=== PATIENT | female | born 1945 | race Caucasian/White ===

== ENCOUNTER 2019-09-25 06:00 | Outpatient (RCR) | payer MEDICARE, SELFPAY | END 2019-10-04 23:59 | disposition home or self-care (01) | LOC: GPT 06:00 | PROVIDERS: PCP Nurse Practitioner Family; Referring Provider Nurse Practitioner Family; Visit Provider Nurse Practitioner Family | DX: G89.29 Other chronic pain (principal); M54.42 Lumbago with sciatica, left side | CPT/HCPCS: 97032; 97110; 97161; 97530 ==

== ENCOUNTER 2019-10-05 06:00 | Outpatient (RCR) | payer MEDICARE, SELFPAY | END 2019-11-04 23:59 | disposition home or self-care (01) | LOC: GPT 06:00 | PROVIDERS: PCP Nurse Practitioner Family; Referring Provider Nurse Practitioner Family; Visit Provider Nurse Practitioner Family | DX: G89.29 Other chronic pain (principal); M54.42 Lumbago with sciatica, left side | CPT/HCPCS: 97110; 97112; 97116; 97164; 97530 ==

== ENCOUNTER 2019-11-05 06:00 | Outpatient (RCR) | payer MEDICARE, SELFPAY | END 2019-12-04 23:59 | disposition home or self-care (01) | LOC: GPT 06:00 | PROVIDERS: PCP Nurse Practitioner Family; Referring Provider Nurse Practitioner Family; Visit Provider Nurse Practitioner Family | DX: M54.42 Lumbago with sciatica, left side (principal); G89.29 Other chronic pain; R26.89 Other abnormalities of gait and mobility | CPT/HCPCS: 97110; 97112; 97116; 97530 ==

== ENCOUNTER 2020-05-27 20:27 | Observation (INO) | payer MEDICARE, SELFPAY ==
[2020-05-27 21:01] VITALS: BP 167/75; PULSE 97; RESP 18; TEMP 36.9; O2SAT 96; BMI 34.3
--- NOTE | 2020-05-27 22:38 | W.ED.WEAKNES ---
HPI - Weakness General: Chief complaint: Weakness Stated complaint: WEAK X 2 DAYS Time Seen by Provider: 05/27/20 22:26 Source: patient (poor historian) Mode of arrival: wheelchair Limitations: physical limitation (weakness) History of Present Illness: HPI Narrative: 74-year-old female patient presents to the emergency department with progressive weakness. She was seen at [facility] earlier this evening with diagnosis of urinary tract infection, was discharged home. Family immediately brought her to the emergency room but she was not able to get out of the car secondary to weakness. She has experienced weakness for 2 days, received second dose Covid vaccine today despite complaints of weakness, administered as she did not have a fever. She reports weakness has progressed since COVID vaccine, reports similar reaction with 1st dose of the vaccine but not this severe. She reports history of diabetes with CBG readings in the 300s which is elevated for her. She denies urinary symptoms. She reports shortness of breath but denies cough or congestion. She reports normally is ambulatory at home with assistance of a walker. She denies chest pain, abdominal pain, nausea vomiting. She reports few episodes of diarrhea. She denies hematochezia. Home health aide that cares for her did contact the ED with concern of her weakness. Medical records have been requested from [facility]. Complaint: generalized weakness, lack of energy and difficulty walking Onset (ago): day(s) (2) Duration: constant and progressively worsening Location: generalized Relieving factors: none Exacerbating factors: none Associated symptoms: Denies chest pain, chills, diaphoresis, dysuria, easy bruising, fever(s), headache(s), nausea or vomiting Review of Systems General: Reports: 10 or more systems reviewed and unremarkable except in HPI and below Const: Reports: fatigue and malaise; Denies: fever(s), chills, change in appetite, diaphoresis or change in sleep pattern Eyes: Denies: blurry vision or eye redness ENMT: Denies: throat pain, dental pain, disequilibrium, nasal discharge or nasal congestion Card: Reports: swelling of feet/ankles (chronic) and dyspnea on exertion (x 2 years but worse); Denies: chest pain, palpitations, irregular heart rhythm, lightheadedness, orthopnea or leg pain with exertion Resp: Reports: non-productive cough (x 2 years, not changed) and chest congestion (x 2 years, not changed); Denies: dyspnea, productive cough or wheezing GI: Reports: diarrhea; Denies: abdominal pain, nausea, vomiting, heartburn, GI cramping, pain on defecation or hematochezia : Denies: difficulty voiding or dysuria Musc: Reports: muscle weakness; Denies: neck pain, back pain, joint pain or joint stiffness Skin/Breast: Denies: rash, pruritus, erythema or changes in skin color Neuro: Reports: difficulty walking; Denies: headache(s), weakness in extremities, sensory changes, frequent falls, vertigo or behavioral changes Psych: Denies: anxiety or depression Farhan/Lymph: Denies: easy bruising PFSH ED PFSH: Medical History (Updated 05/28/20 @ 02:38 by Xander Ernst) COPD (chronic obstructive pulmonary disease) Diabetes Surgical History (Updated 05/28/20 @ 01:53 by EDGAR Ballesteros) H/O: hysterectomy History of appendectomy History of carpal tunnel release History of tonsillectomy Total knee replacement status Family History (Updated 05/28/20 @ 01:54 by EDGAR Ballesteros) Father Diabetes Other CAD (coronary artery disease) Social History (Updated 05/28/20 @ 01:54 by EDGAR Ballesteros) Alcohol intake: never Substance/Drug Use: never Lives independently: Yes Household members: spouse Marital status: Physical Exam Const: COMMON NORMALS: no acute distress, patient oriented x3, alert and well nourished EXAM LIMITATIONS: physical limitations (weakness present); no altered mental status and no behavioral limitations GENERAL APPEARANCE: cooperative, comfortable, frail appearing and well hydrated; not anxious and not ill appearing NUTRITIONAL APPEARANCE: obese ORIENTATION/CONSCIOUSNESS: Yes awake, Yes oriented to person, Yes oriented to place and Yes oriented to time; not confused and not patient obtunded HENMT: COMMON NORMALS: normocephalic, atraumatic, external ears normal, Normal external nose present and moist oral mucous membranes HEAD & SCALP: normal to inspection, normocephalic and atraumatic NOSE: Normal external nose present EXTERNAL EAR: Yes external ears normal Eye: COMMON NORMALS: Equal, round and reactive pupils present and EOMs intact bilaterally GENERAL EYE: appearance normal, both eyes and all related structures PUPIL: Yes Equal, round and reactive pupils present Neck/C-Spine: COMMON NORMALS: full ROM and no lymphadenopathy GENERAL: Yes normal visual inspection and Yes trachea midline CERVICAL SPINE: Yes cervical ROM normal Lymph: LYMPHATIC: no lymphadenopathy noted Chest: COMMONS NORMALS: normal inspection of the chest and normal palpation of entire chest wall Resp: COMMON NORMALS: normal respiratory effort, No retractions and clear to auscultation bilaterally EFFORT & INSPECTION: Yes able to speak in complete sentences, Yes labored (with exertion), No Actively coughing and No audible wheezes AUSCULTATION: clear to auscultation bilaterally and diminished lung sounds bilateral in the lower lung miranda Cardio: COMMON NORMALS: regular rate, regular rhythm, S1 normal heart sound present, S2 normal heart sound present and Peripheral pulses 2+ throughout RATE: regular rate RHYTHM: regular rhythm HEART SOUNDS: S1 normal heart sound present and S2 normal heart sound present PERIPHERAL PULSES: Peripheral pulses 2+ throughout GI: COMMON NORMALS: Normal to inspection, nondistended, normoactive bowel sounds present, Soft to palpation and non-tender INSPECTION: Yes normal to inspection, No abdominal wall ecchymosis, No Abdominal wall edema, No abdominal distension and Yes central obesity PALPATION: Yes Soft to palpation : COMMON NORMALS: Yes no CVA tenderness BLADDER/KIDNEY EXAM: Yes no CVA tenderness Back/Pelvis: COMMON NORMALS: no CVA tenderness and thoracic and lumbar spine normal to inspection Extremity: COMMON NORMALS: normal to inspection, capillary refill normal, no clubbing, cyanosis or edema and no calf tenderness GENERAL: Yes edema (BLE 2 +) Neuro: COMMON NORMALS: patient oriented x3 and no focal motor deficits SENSORIUM/ORIENTATION: Yes alert, Yes oriented to person, Yes oriented to place and Yes oriented to time SPEECH: speech normal MOTOR EXAM: Abnormal motor strength present (3/5 x 4 extremities) Right pupil size (mm): 3 Left pupil size (mm): 3 Psych: COMMON NORMALS: mental status grossly normal, Normal thought process present and cooperative APPEARANCE: Yes grossly normal ATTITUDE: Yes calm ACTIVITY/MOTOR BEHAVIOR: Yes appropriate eye contact THOUGHT PROCESS: Normal thought process present THOUGHT CONTENT: Yes Normal thought content present Skin: COMMON NORMALS: no wounds, turgor normal, no petechiae and no mottling GENERAL SKIN EXAM: elasticity normal and turgor normal RASHES: rashes noted (rt deltoid with 7 cm x 3 cm area of induration and tenderness) OTHER: COVID vaccine site Course ED course: [facility] records received, findings as follows; patient was diagnosed with urinary tract infection discharged with prescription of Omnicef. Patient was administered Rocephin in the ED prior to discharge. Sodium 128/chloride 95; glucose serum 201, remaining serology findings without abnormalities. Chest x-ray without acute process. Consultations: Consultation #1: Dr Turcios, hospitalist, discussed history of present illness, clinical findings along with findings/medical records from [facility]. Serology results discussed. Agrees for admission as patient continues to experience weakness. Time: 02:30 Vital Signs: Vital signs: Vital Signs Temperature 98.4 F 05/27/20 21:01 Pulse Rate 92 05/28/20 01:52 Respiratory Rate 19 H 05/28/20 01:52 Blood Pressure 158/79 05/28/20 01:52 Pulse Oximetry 96 05/28/20 01:52 MDM - Weakness MDM Narrative: Medical decision making narrative: 74-year-old female patient presents to the emergency department with continued weakness x24 hours. She reports weakness progressed since receiving second dose of Covid vaccine yesterday. She reports previous symptoms with first dose of Covid vaccine. CBC without acute abnormality/leukocytosis, patient remains with hyponatremia/hypochloremia, lactate 1.3, urinalysis with positive findings for UTI. First dose of Rocephin administered here in the ED. Initial troponin slightly elevated, 14, 2-hour troponin pending. Patient able to move all extremities x4, weakness noted, CT scan of the brain without IV contrast without acute abnormality. Hospitalist, Dr. Turcios, evaluated the patient in the ED. CPK added to serology. Lab Data: Labs: Lab Results 05/27/20 05/27/20 05/28/20 Range/Units 22:40 23:09 00:32 WBC 5.9 (4.0-10.0) 10^3/ uL RBC 4.29 (4.1-5.3) 10^6/u L Hgb 12.7 (11.5-15.3) g/dL Hct 38.6 (37.0-47.0) % MCV 90.0 (81-99) fL MCH 29.6 (28.0-34.0) pg MCHC 32.9 (30.0-36.0) g/dL RDW 14.4 (12.1-15.1) % Plt Count 224 (130-400) 10^3/c mm MPV 8.6 (7.4-10.4) fL Neut % (Auto) 65.3 % Lymph % (Auto) 21.8 % [place] % (Auto) 9.4 % Eos % (Auto) 2.2 % Baso % (Auto) 0.8 % Neut # (Auto) 3.87 (1.8-7.7) 10^3/u L Lymph # (Auto) 1.3 (0.8-4.8) 10^3/u L [place] # (Auto) 0.6 (0.2-0.9) 10^3/u L Eos # (Auto) 0.1 (0.0-0.8) 10^3/u L Baso # (Auto) 0.1 (0.0-0.1) 10^3/u L Nucleated RBC % (a uto) 0 % Nucleated RBCs # 0.0 /100WBC Sodium 126 L (136-145) mmol/L Potassium 4.1 (3.5-5.1) mmol/L Chloride 93 L (98-107) mmol/L Carbon Dioxide 23 (22-29) mmol/L Anion Gap 14.1 (5-19) BUN 11 (8-23) mg/dL Creatinine 0.5 (0.5-0.9) mg/dL GFR Calculation Not Reportable Glucose 203 H (65-115) mg/dL Calculated Osmolal ity 267 L (285-295) mOsm/k g Lactate 1.3 (0.5-2.2) mmol/L Calcium 8.6 (8.5-10.5) mg/dL Total Bilirubin 0.3 (0.15-1.2) mg/dL AST 15 (0-32) U/L ALT 14 (0-33) U/L Alkaline Phosphata se 56 (35-105) IU/L Troponin T Baselin e (0-10) ng/L Total Protein 6.5 L (6.6-8.7) g/dL Albumin 3.8 (3.5-5.2) g/dL Globulin 2.7 (1.3-4.6) g/dL Urine Color (Yellow) Urine Appearance (CLEAR) Urine pH (5-7) Ur Specific Gravit y (1.005-1.030) Urine Protein (Negative) Urine Glucose (UA) (Normal) Urine Ketones (Negative) Urine Blood (Negative) Urine Nitrate (Negative) Urine Bilirubin (Negative) Urine Urobilinogen (Negative) mg/dL Ur Leukocyte Johanna ase (Negative) Urine RBC (0-2) /hpf Urine WBC (0-5) /hpf Ur Squamous Epith Cells (0-5) /hpf Amorphous Sediment Urine Bacteria (NONE) /hpf 05/28/20 05/28/20 Range/Units 00:32 00:37 WBC (4.0-10.0) 10^3/ uL RBC (4.1-5.3) 10^6/u L Hgb (11.5-15.3) g/dL Hct (37.0-47.0) % MCV (81-99) fL MCH (28.0-34.0) pg MCHC (30.0-36.0) g/dL RDW (12.1-15.1) % Plt Count (130-400) 10^3/c mm MPV (7.4-10.4) fL Neut % (Auto) % Lymph % (Auto) % [place] % (Auto) % Eos % (Auto) % Baso % (Auto) % Neut # (Auto) (1.8-7.7) 10^3/u L Lymph # (Auto) (0.8-4.8) 10^3/u L [place] # (Auto) (0.2-0.9) 10^3/u L Eos # (Auto) (0.0-0.8) 10^3/u L Baso # (Auto) (0.0-0.1) 10^3/u L Nucleated RBC % (a uto) % Nucleated RBCs # /100WBC Sodium (136-145) mmol/L Potassium (3.5-5.1) mmol/L Chloride (98-107) mmol/L Carbon Dioxide (22-29) mmol/L Anion Gap (5-19) BUN (8-23) mg/dL Creatinine (0.5-0.9) mg/dL GFR Calculation Glucose (65-115) mg/dL Calculated Osmolal ity (285-295) mOsm/k g Lactate (0.5-2.2) mmol/L Calcium (8.5-10.5) mg/dL Total Bilirubin (0.15-1.2) mg/dL AST (0-32) U/L ALT (0-33) U/L Alkaline Phosphata se (35-105) IU/L Troponin T Baselin e 14 H (0-10) ng/L Total Protein (6.6-8.7) g/dL Albumin (3.5-5.2) g/dL Globulin (1.3-4.6) g/dL Urine Color Yellow (Yellow) Urine Appearance Clear (CLEAR) Urine pH 6.5 (5-7) Ur Specific Gravit y 1.015 (1.005-1.030) Urine Protein Neg (Negative) Urine Glucose (UA) 4+ H (Normal) Urine Ketones Negative (Negative) Urine Blood 2+ H (Negative) Urine Nitrate Negative (Negative) Urine Bilirubin Neg (Negative) Urine Urobilinogen Norm (Negative) mg/dL Ur Leukocyte Johanna ase 1+ H (Negative) Urine RBC 5-10 H (0-2) /hpf Urine WBC 40-55 H (0-5) /hpf Ur Squamous Epith Cells 5-10 H (0-5) /hpf Amorphous Sediment Not Reportable Urine Bacteria Trace (NONE) /hpf Imaging Data^: CT Head: Radiologist's impression: [place] [address] CT Scan Report Signed Patient: Isamar Keyes Unit #: [id number] : 1945 Age/Sex: 74 / F ADM Date: 05/27/20 Loc: ER Room/Bed: Attending Dr: Ordering Provider/Ordering MD: Omaira Carvajal Date of Service: 05/28/20 Procedure(s): CT head wo con* [id number] Accession Number(s): [id number] Report Number: [id number] PROCEDURE INFORMATION: Exam: CT Head Without Contrast Exam date and time: 05/28/2020 1:23 AM Age: 74 years old Clinical indication: Weakness, extremity; Patient HX: General weakness with inability to ambulate. TECHNIQUE: Imaging protocol: Computed tomography of the head without contrast. Radiation optimization: All CT scans at this facility use at least one of these dose optimization techniques: automated exposure control; mA and/or kV adjustment per patient size (includes targeted exams where dose is matched to clinical indication); or iterative reconstruction. COMPARISON: No relevant prior studies available. RADIATION DOSE METRICS: Total DLP (mGy-cm): 992.35 FINDINGS: Brain: Brain atrophy with hypodensities in the periventricular/deep white matter that suggest chronic microvascular ischemia. Cerebral ventricles: No hydrocephalus Bones/joints: No acute fracture. Paranasal sinuses: Trace chronic paranasal sinus disease. Mastoid air cells: No significant mastoid effusion. Vasculature: Vascular calcifications. Soft tissues: Unremarkable. CT/CT head wo con* [id number] IMPRESSION: No acute intracranial abnormality. Radiation Dose CTDIVOL = (mGy): DLP = 992.35 (mGy-cm) Dictated By: Denny Don MD Signed By: Denny Don MD Discharge Plan Discharge Patient Disposition: Admitted As Inpatient Clinical Impression: Weakness, Acute UTI Condition: Stable Coding Level of Care Code ED Skein Yarn Dyer Helper for Chg Fwd Exam Comprehensive
[2020-05-27 22:48] LABS: Basophils # 0.1 10^3/uL (0.0-0.1); Basophils % 0.8 %; Eosinophils # 0.1 10^3/uL (0.0-0.8); Eosinophils % 2.2 %; Hematocrit 38.6 % (37.0-47.0); Hemoglobin 12.7 g/dL (11.5-15.3); Lymphocytes # 1.3 10^3/uL (0.8-4.8); Lymphocytes % 21.8 %; Mean Corpuscular HGB Conc 32.9 g/dL (30.0-36.0); Mean Corpuscular Hemoglobin 29.6 pg (28.0-34.0); Mean Platelet Volume 8.6 fL (7.4-10.4); Monocytes # 0.6 10^3/uL (0.2-0.9); Monocytes % 9.4 %; Neutrophils # 3.87 10^3/uL (1.8-7.7); Neutrophils % 65.3 %; Nucleated Red Blood Cells % 0 %; Platelet Count 224 10^3/cmm (130-400); Red Blood Count 4.29 10^6/uL (4.1-5.3); Red Cell Distribution Width 14.4 % (12.1-15.1); White Blood Count 5.9 10^3/uL (4.0-10.0)
[2020-05-27 23:22] VITALS: BP 107/82; PULSE 87; RESP 19; O2SAT 95
--- NOTE | 2020-05-27 23:32 | PC.NURSE ---
Patient wet herself, got her out of soiled clothes into patient gown and remade bed with fresh linens.
[2020-05-27 23:40] LABS: Alanine Aminotransferase 14 U/L (0-33); Albumin Level 3.8 g/dL (3.5-5.2); Alkaline Phosphatase 56 IU/L (35-105); Anion Gap 14.1 (5-19); Aspartate Amino Transferase 15 U/L (0-32); Blood Urea Nitrogen 11 mg/dL (8-23); Calcium 8.6 mg/dL (8.5-10.5); Carbon Dioxide 23 mmol/L (22-29); Chloride 93 mmol/L (98-107); Globulin 2.7 g/dL (1.3-4.6); Glucose 203 mg/dL (65-115); Osmolality Calculated 267 mOsm/kg (285-295); Potassium 4.1 mmol/L (3.5-5.1); Sodium 126 mmol/L (136-145); Total Bilirubin 0.3 mg/dL (0.15-1.2); Total Protein 6.5 g/dL (6.6-8.7)
[2020-05-28] VITALS (11 sets, daily range): BP systolic 118–158; BP diastolic 62–79; PULSE 79–97; RESP 16–19; TEMP 36.4–37.4; O2SAT 94–96
--- NOTE | 2020-05-28 00:13 | XR_ITS ---
WS: [id number] Exam: XR chest 1V portable [id number] Date/Time of Exam: 05/28/2020 12:15 AM Reason For Exam: cough /SOB No priors. The lungs are clear and fully expanded. Unremarkable cardiomediastinal structures and regional bony e lements. Atherosclerotic plaquing of the thoracic aorta. XR/XR chest 1V portable [id number] IMPRESSION: 1. No acute cardiopulmonary finding.
[2020-05-28 00:50] LABS: Blood Urine 2+ (Negative); Glucose Urine UA 4+ (Normal); Ketones Urine Negative (Negative); Protein Urine Neg (Negative); Specific Gravity, Urine 1.015 (1.005-1.030); Urine Appearance Clear (CLEAR); Urine Color Yellow (Yellow); pH Urine 6.5 (5-7)
[2020-05-28 00:51] LABS: Add Urine Culture? Yes; Add Urine Microscopic? YES; Bacteria Urine TRACE /hpf; Bilirubin Urine Neg (Negative); Leukocyte Esterase Urine 1+ (Negative); Nitrate Urine Negative (Negative); Urobilinogen Urine Norm (Negative); WBC Urine 40-55 /hpf (0-5)
[2020-05-28 00:59] LABS: Lactate (Lactic Acid level) 1.3 mmol/L (0.5-2.2)
[2020-05-28 01:02] LABS: Troponin(5th) Baseline 14 ng/L (0-10)
--- NOTE | 2020-05-28 01:19 | CTR_ITS ---
PROCEDURE INFORMATION: Exam: CT Head Without Contrast Exam date and time: 05/28/2020 1:23 AM Age: 74 years old Clinical indication: Weakness, extremity; Patient HX: General weakness with inability to ambulate. TECHNIQUE: Imaging protocol: Computed tomography of the head without contrast. Radiation optimization: All CT scans at this facility use at least one of these dose optimization techniques: automated exposure control; mA and/or kV adjustment per patient size (includes targeted exams where dose is matched to clinical indication); or iterative reconstruction. COMPARISON: No relevant prior studies available. RADIATION DOSE METRICS: Total DLP (mGy-cm): 992.35 FINDINGS: Brain: Brain atrophy with hypodensities in the periventricular/deep white matter that suggest chronic microvascular ischemia. Cerebral ventricles: No hydrocephalus Bones/joints: No acute fracture. Paranasal sinuses: Trace chronic paranasal sinus disease. Mastoid air cells: No significant mastoid effusion. Vasculature: Vascular calcifications. Soft tissues: Unremarkable. CT/CT head wo con* [id number] IMPRESSION: No acute intracranial abnormality. Radiation Dose CTDIVOL = (mGy): DLP = 992.35 (mGy-cm)
[2020-05-28] MEDS: albuterol 8 gm MDI 2 PUFF INHALATION (01:45)
[2020-05-28] MEDS: cefTRIAXone 1,000 MG in sodium chloride 0.9% (plus) 50 ML 100 MG IV (01:47)
--- NOTE | 2020-05-28 02:15 | ECG_ITS ---
[facility] Test Date: 2020-05-28 Pat Name: Isamar Keyes Department: Room: 279 Gender: Female Supervisor Parking Lot: : 1945 Requested By: Omaira Mustafa Order Number: [id number] Elvia MD: Monique Vazquez M.D. Measurements Intervals [place] Rate: 95 P: 28 TX: 158 QRS: -31 QRSD: 92 T: 13 QT: 330 QTc: 416 Interpretive Statements SINUS RHYTHM LEFT AXIS DEVIATION [QRS AXIS < -30] No previous ECG available for comparison Electronically Signed On 05-28-2020 20:42:38 CDT by Monique Vazquez M.D. [email or web address] bethesda north hospitalVoltea/store/Ov/[id number]
[2020-05-28 03:19] LABS: Creatine Phosphokinase 33 U/L (26-192)
--- NOTE | 2020-05-28 03:38 | PM.HP ---
Providers/Chief Complaint Admitting Physician: Donato Turcios Primary Care Provider: RERE Robles Chief Complaint: WEAK X 2 DAYS History of Present Illness 74 year old female with past medical history of hypertension, dyslipidemia, diabetes mellitus, neuropathy, chronic obstructive pulmonary disease, who is presenting to the ER with generalized weakness. Patient states her symptoms progressively worsening after receiving the COVID-19 vaccine on 05/26. Normally uses a walker at home for mobility however today has been feeling to weak to move. Initially presented to [facility] ER for work up earlier yesterday during which time she was suspected to have a UTI. She was given omnicef in addition to prednisone and discharge. at bedside said he is not able to take care of her and so he brought her to [facility] ER for admission and possible d/c to rehab facility. Of note patient was admitted for 3 days with similar issues after receiving the first covid-19 vaccine. Per patient she had still felt weak at discharge during that time however was not evaluated for SNF placement. Denied any recent fever, chills, nausea, or vomiting. Denied chest pain or shortness of breath. Also denied any unilateral neurological deficits, lightheadedness or dizziness. No LOC. Upon arrival to ER today her laboratory work up showed a WBC of 5.9, hemoglobin of 12.7, hematocrit of 38.6 and a platelet count of 224. Sodium of 126, potassium of 4.1, chloride of 93, bicarb of 23, BUN of 11 and a creatinine of 0.5. Lactic acid of 1.3 UA showed 1+ leukocyte esterase, 40-55 WBC and trace bacteria. Imaging studies included a ct head w/o contrast with was negative. Review of Systems General: Reports: 10 or more systems reviewed and unremarkable except in HPI and below Medications/Allergies Allergies Allergy/AdvReac Type Severity Reaction Status Date / Time No Known Allergies Allergy Verified 05/27/20 21:07 PFSH Acute PFSH: Medical History (Updated 05/28/20 @ 03:58 by Donato Turcios MD) COPD (chronic obstructive pulmonary disease) Diabetes Surgical History (Updated 05/28/20 @ 01:53 by EDGAR Ballesteros) H/O: hysterectomy History of appendectomy History of carpal tunnel release History of tonsillectomy Total knee replacement status Family History (Updated 05/28/20 @ 01:54 by EDGAR Ballesteros) Father Diabetes Other CAD (coronary artery disease) Social History (Updated 05/28/20 @ 01:54 by EDGAR Ballesteros) Alcohol intake: never Substance/Drug Use: never Lives independently: Yes Household members: spouse Marital status: Vitals/I&O/Wt Last Vital Signs Temp 98.4 F 05/27/20 21:01 Pulse 92 05/28/20 01:52 Resp 19 H 05/28/20 01:52 BP 158/79 05/28/20 01:52 Pulse Ox 96 05/28/20 01:52 Weight last 48 hrs Weight 90.718 kg Physical Exam Narrative: EXAM NARRATIVE: General : alert awake and oriented x3, NAD HEENT: Grossly unremarkable Chest : Non-labored respiration CVS: NSR ABD: Soft NT.ND Ext : Trace b/l edema Neuro: weak however moving all ext Data : 05/27/20 22:40 05/27/20 23:09 A&P Assessment and plan (1) Acute UTI: Status: Acute (2) Weakness: Status: Acute (3) Hyponatremia: Status: Acute Generalized weakness due to suspected UTI - UA + leukocyte esterase, 40-55 WBC, trace bacteria - S/p Rocephin 1g IV x 1 in ER - Will continue q24hr - Follow up on urine culture - Follow up on blood culture x2 - Will consult PT/OT - Fall precautions - Will also check TSH in am Hyponatremia - Euvolemic - will obtain urine na/creatinine/chloride - NS at 50cchr after - Repeat BMP in am Diabetes mellitus - Sliding scale insulin - Qachs checks - Diabetic diet COPD w/o exacerbation - No respiratory distress or hypoxia on arrival - Stable continue home regimen Hypertension - Verify home meds Dyslipidemia - Verify home meds DVT pox - SCDS - Lovenox 40 mg SQ daily Attestations Medical Necessity Statement*: Anticipate less than 2 midnight stay in hospital for eval and treatment of UTI/generalized wekaness. Time Spent in Patient Care: Greater than 35 minutes (>than 50% of time spent in counselling and/or direct pt care on unit). Coding Level of Care Code Acute Director Of Corporate Responsibility for Donna Tuttle Diagnoses Acute UTI N39.0 Weakness R53.1 Hyponatremia E87.1
[2020-05-28 04:12] LABS: NT Pro B Type Natriuretic Pept 749 pg/mL (0-125)
[2020-05-28] MEDS: enoxaparin 40 mg/0.4 mL Syringe SUBCUT (04:12)
[2020-05-28] MEDS: sodium chloride 0.9% 1,000 ML 50 ML IV (04:13)
[2020-05-28 04:43] LABS: Troponin 5 2HR 16.59 ng/L (0-10)
[2020-05-28 04:46] LABS: Troponin 5 2HR Delta 2.59 ABS# (0-10)
[2020-05-28 07:51] LABS: Troponin 5 6HR 15.36 ng/L (0-10); Troponin 5 6HR Delta 1.36 ng/L (0-12)
--- NOTE | 2020-05-28 08:47 | USCV_ITS ---
Isamar Keyes Age: 74 Gender: F : 1945 Exam Date: 05/28/2020 11:01 Ordering Phys: Damien Cohen MD Technologist: Jaciel Ray [place]am [place] [facility] [place]ication: CHF BP: 134 / 73 HR: 89 Rhythm: Sinus Technical Quality: Adequate MEASUREMENTS (Male / Female) Normal Values 2D ECHO LV Diastolic Diameter PLAX 3.5 cm 4.2 - 5.9 / 3.9 - 5.3 cm LV Systolic Diameter PLAX 2.0 cm IVS Diastolic Thickness 1.3 cm 0.6 - 1.0 / 0.6 - 0.9 cm IVS Systolic Thickness 1.3 cm LVPW Diastolic Thickness 1.1 cm 0.6 - 1.0 / 0.6 - 0.9 cm LVPW Systolic Thickness 1.2 cm LVOT Diameter 2.0 cm LV Ejection Fraction 2D Teich 68.3 % LV Ejection Fraction MOD 2C 58.6 % LV Ejection Fraction 2C AL 58.5 % LA Diameter 3.3 cm LA Width 3.3 cm LA Height 3.6 cm RA Width 3.2 cm RA Height 4.0 cm M-MODE LV Diastolic Diameter MM 4.5 cm 4.2 - 5.9 / 3.9 - 5.3 cm LV Systolic Diameter MM 2.8 cm LV Ejection Fraction MM Teich 68.4 % IVS Diastolic Thickness MM 0.9 cm 0.6 - 1.0 / 0.6 - 0.9 cm IVS Systolic Thickness MM 1.2 cm LVPW Diastolic Thickness MM 1.1 cm 0.6 - 1.0 / 0.6 - 0.9 cm LVPW Systolic Thickness MM 1.8 cm RV Diastolic Diameter MM 1.7 cm Aortic Annulus Diameter 3.2 cm LA Ao Ratio MM 1.1 MV E Point Septal Separation 0.6 cm DOPPLER AV Peak Velocity 124.0 cm/s LVOT Peak Velocity 94.0 cm/s AV Area Cont Eq vti 2.4 cm squared AV Area Cont Eq pk 2.4 cm squared MV Area PHT 5.0 cm squared Mitral E to A Ratio 1.0 MV E' Velocity 55.0 cm/s Mitral E to MV E' Ratio 9.7 Mitral E to LV E' Lateral Ratio 10.5 Mitral E to LV E' Septal Ratio 9.0 TR Peak Velocity 210.0 cm/s TR Peak Gradient 17.6 mmHg TV Peak E Velocity 76.0 cm/s Right Atrial Pressure 3.0 mmHg Pulmonary Artery Systolic Pressu 20.6 mmHg FINDINGS Left Ventricle Normal left ventricular size, systolic function and wall thickness, with no regional wall motion abnormalities. Left ventricular ejection fraction is estimated at 65 %. Normal diastolic function. Right Ventricle Normal right ventricular size and systolic function. Right ventricular systolic pressure 20.6 mmHg. Right Atrium Normal right atrial size. Left Atrium Normal left atrial size. Mitral Valve Mildly thickened mitral valve. Mild mitral annular calcification. No mitral valve stenosis. Trace mitral valve regurgitation. Aortic Valve Aortic valve not well visualized. No aortic valve stenosis. No aortic valve regurgitation. Tricuspid Valve Tricuspid valve not well visualized. Pulmonic Valve Pulmonic valve not well visualized. Pericardium No pericardial effusion. Aorta Normal sized aortic root. CONCLUSIONS 1. Normal left ventricular size, systolic function and wall thickness, with no regional wall motion abnormalities. Left ventricular ejection fraction is estimated at 65 %. Normal diastolic function. 2. Normal right ventricular size and systolic function. 3. No significant valvular abnormality. 4. No prior similar studies to compare. Shannon Gunderson MD (Electronically Signed) Final Date: 28 May 2020 18:45 S
[2020-05-28] MEDS: aspirin 81 mg EC Tablet PO (10:09)
--- NOTE | 2020-05-28 10:17 | PC.PHAR ---
PT , BRIAN, VERIFIED PATIENTS MEDICATIONS. HE STATES HE IS NOT SURE IF SHE HAS BEEN TAKING ALL OF THEM BUT WENT THROUGH [facility].
--- NOTE | 2020-05-28 11:04 | PC.CHAP ---
Pastoral Care Encounter/Spiritual Assessment Type of Contact [] Declined continuous wave operator visit [] Patient/Family/Request visit [] Outpatient visit [] Follow-up visit [] Physician referral [] Code/Alert [x] Routine visit [] Staff referral [] Actively dying [] Patient sleeping [] Family support [] [] Out of room [] Palliative care [] [x] Receiving care in room [] Pre-surgical visit [] Trauma [x] Long length of stay [] ICU visit [] Other: Relational/Emotional Strength [x] Patient feels connected with others/family/visitors/staff [] Distress [] Loneliness/isolation [] Abandonment Spirituality of Patient [x] Person of Winsome [x] Attends Islam of their Winsome [x] Believes in Prayer [] Reads Bible or Cheondoism materials [x] There are Spiritual issues to be addressed Part Time Interventions [x] Prayer [x] Active listening [x] Non-anxious presence [x] Spiritual/emotional support [] Crisis/trauma care [x] Spiritual counseling [] Bereavement support [] Provided bereavement packet [] Provided Bible/devotional materials [] Provided toy/stuffed animal, coloring book to patient or family member [] Provided Communion [] Anointing/[place] [] Salvation [x] Completed spiritual assessment [] Other: Impact on Illness or Injury [] Angry [x] Fearful [] Anxious [] Often cries [] Exhaustion [] Unable to work [] Unable to attend sabianism [] Unable to walk/stand [] Unable to read [] Unable to drive [] Unable to eat/drink [] Unable to sleep [] Unable to be with family [] Patient intubated [] Other: Summary Weak able to talk and can communicatehae hasn't seen seen doctor,doesn't when she will be able to home? has a good attituse. Time spent with patient 10 mins
--- NOTE | 2020-05-28 11:22 | P.PN_ITS ---
Subjective Subjective: Interval history: Patient reports generalized weakness. However she reports feeling better today. Denies any pain. No chest pain or shortness of breath. No fever or chills. No nausea or vomiting. No diarrhea. Medications: Reviewed: Yes Medication Review Details: Generic Name Dose Route Start Last Admin Trade Name Mitchell PRN Reason Stop Dose Admin Aspirin 81 mg 05/28/20 09:15 05/28/20 10:09 Aspirin 81 Mg Ec Tablet PO 81 mg DAILY DARIELA Administration Enoxaparin Sodium 40 mg 05/28/20 03:45 05/28/20 04:12 Enoxaparin 40 Mg /0.4 Ml Syringe SUBCUT 40 mg Q24H DARIELA Administration Vitals/I&O/Wt Last Vital Signs Temp 99.3 F 05/28/20 07:30 Pulse 88 05/28/20 07:30 Resp 18 05/28/20 07:30 BP 138/78 05/28/20 07:30 Pulse Ox 94 05/28/20 07:30 05/27/20 05/28/20 05/28/20 22:59 06:59 14:59 Intake Total 50 / 50 Balance 50 / 50 Weight last 48 hrs Weight 90.718 kg Physical Exam Narrative: EXAM NARRATIVE: Awake alert oriented. No acute distress. Mood and affect are appropriate. Responses are adequate. Skin is warm and dry. Moist mucous membranes. Neck supple. No JVD Lungs are clear to auscultation bilaterally. No respiratory distress Heart S1, S2, regular Abdomen soft, nontender, bowel sounds are present Extremities trace edema. No cyanosis no calf tenderness bilaterally Neuro examination is nonfocal. Normal speech. No facial asymmetry. Data : 05/27/20 22:40 05/27/20 23:09 Micro: Microbiology 05/28/20 03:56 Blood Culture - Preliminary Blood SPECIMEN COLLECTED 05/28/20 03:55 Blood Culture - Preliminary Blood SPECIMEN COLLECTED A&P Assessment and plan (1) Acute UTI: Status: Acute (2) Weakness: Status: Acute (3) Hyponatremia: Status: Acute Generalized weakness due to suspected UTI - UA + leukocyte esterase, 40-55 WBC, trace bacteria - S/p Rocephin 1g IV x 1 in ER - Will continue q24hr - Follow up on urine culture - Follow up on blood culture x2 - Will consult PT/OT - Fall precautions - Will also check TSH in am Hyponatremia - Euvolemic - will obtain urine na/creatinine/chloride - NS at 50cchr after - Repeat BMP in am Diabetes mellitus - Sliding scale insulin - Qachs checks - Diabetic diet COPD w/o exacerbation - No respiratory distress or hypoxia on arrival - Stable continue home regimen Hypertension - Verify home meds Dyslipidemia - Verify home meds DVT pox - SCDS - Lovenox 40 mg SQ daily [place] Generalized weakness. Probably multifactorial. Differential includes UTI, hyponatremia, possible hypothyroidism. Generalized deconditioning and debilitated state is possible as well. Continue OT eval and treat. Case management is working on placement. UTI. Continue Rocephin. Wait for the culture results. Hyponatremia. Could be from fluid overload. However we will check some other possibilities including SIADH and hypothyroidism. Will order urinalysis serum osmolality and urine sodium level. Will check TSH. Hospital history of CHF. Fluid overload is possible. However there is no evidence of CHF exacerbation. Will resume home medications including her furosemide, lisinopril. Also will order ASA 81 mg Hypertension. Well-controlled. Continue current management. Diabetes. I will probably stop her pioglitazone. We will continue adjusting her other medications. Will check A1c level. Will start insulin sliding scale. DVT prophylaxis. Lovenox. The plan of care was discussed with the patient. She verbalized understanding and agreement. Discussed with multidisciplinary team. Attestations Medical Necessity Statement*: Possible discharge in a day or 2. Testing for above listed problems is in progress. Coding Level of Care Code Acute Cistern Room Working Supervisor for Donna Tuttle Diagnoses Acute UTI N39.0 Weakness R53.1 Hyponatremia E87.1
[2020-05-28] MEDS: FUROsemide 20 mg Tablet PO (11:54)
[2020-05-28 12:08] LABS: Glucose Point of Care 246 mg/dL (70-110)
[2020-05-28 12:44] LABS: Estmated Average Glucose 206; Hemoglobin A1C 8.8 % (4.0-6.0)
[2020-05-28] MEDS: gabapentin 300 mg Capsule PO ×2 (16:08→21:10)
[2020-05-28 17:10] LABS: Glucose Point of Care 172 mg/dL (70-110)
[2020-05-28] MEDS: risperiDONE 0.25 mg Tablet PO (18:28)
[2020-05-28 20:15] LABS: Glucose Point of Care 307 mg/dL (70-110)
[2020-05-29] VITALS (9 sets, daily range): BP systolic 109–145; BP diastolic 66–82; PULSE 84–114; RESP 18–20; TEMP 36.2–36.9; O2SAT 93–97
[2020-05-29] MEDS: enoxaparin 40 mg/0.4 mL Syringe SUBCUT (03:14)
[2020-05-29 06:14] LABS: Basophils % 0.6 %; Eosinophils # 0.3 10^3/uL (0.0-0.8); Eosinophils % 3.9 %; Hematocrit 34.8 % (37.0-47.0); Hemoglobin 11.1 g/dL (11.5-15.3); Lymphocytes # 2.3 10^3/uL (0.8-4.8); Lymphocytes % 34.7 %; Mean Corpuscular HGB Conc 31.9 g/dL (30.0-36.0); Mean Corpuscular Hemoglobin 29.5 pg (28.0-34.0); Mean Corpuscular Volume 92.6 fL (81-99); Monocytes # 0.7 10^3/uL (0.2-0.9); Monocytes % 10.4 %; Neutrophils # 3.34 10^3/uL (1.8-7.7); Neutrophils % 50.2 %; Nucleated Red Blood Cells % 0 %; Platelet Count 200 10^3/cmm (130-400); Red Blood Count 3.76 10^6/uL (4.1-5.3); White Blood Count 6.7 10^3/uL (4.0-10.0)
[2020-05-29 06:28] LABS: Glucose Point of Care 174 mg/dL (70-110)
[2020-05-29 06:36] LABS: Alanine Aminotransferase 18 U/L (0-33); Albumin Level 3.1 g/dL (3.5-5.2); Alkaline Phosphatase 48 IU/L (35-105); Anion Gap 13.9 (5-19); Aspartate Amino Transferase 17 U/L (0-32); Blood Urea Nitrogen 10 mg/dL (8-23); Calcium 8.1 mg/dL (8.5-10.5); Carbon Dioxide 27 mmol/L (22-29); Chloride 94 mmol/L (98-107); Globulin 2.3 g/dL (1.3-4.6); Glucose 137 mg/dL (65-115); Magnesium 1.8 mg/dL (1.7-2.3); Osmolality Calculated 273 mOsm/kg (285-295); Potassium 3.9 mmol/L (3.5-5.1); Sodium 131 mmol/L (136-145); Thyroid Stimulating Hormone 1.64 uIU/mL (0.27-4.20); Total Bilirubin 0.2 mg/dL (0.15-1.2); Total Protein 5.4 g/dL (6.6-8.7)
[2020-05-29 06:42] LABS: Estmated Average Glucose 197; Hemoglobin A1C 8.5 % (4.0-6.0)
[2020-05-29 07:04] LABS: Cholesterol 80 mg/dL (0-200); HDL Cholesterol 40 mg/dL (60-100); LDL Cholesterol Calculated 28 mg/dL (50-129); NT Pro B Type Natriuretic Pept 877 pg/mL (0-125); Phosphorus 3.2 mg/dL (2.5-4.5); Triglycerides 62 mg/dL (0-150)
[2020-05-29] MEDS: cefTRIAXone 1,000 MG in sodium chloride 0.9% (plus) 50 ML 100 MG IV (08:39)
[2020-05-29] MEDS: aspirin 81 mg EC Tablet PO (08:40)
[2020-05-29] MEDS: lisinopril 5 mg Tablet PO (08:40)
[2020-05-29] MEDS: tamsulosin 0.4 mg Capsule PO (08:40)
[2020-05-29] MEDS: atorvastatin 40 mg Tablet 20 MG PO (08:40)
[2020-05-29] MEDS: gabapentin 300 mg Capsule PO ×3 (08:40→20:42)
[2020-05-29] MEDS: glimepiride 2 mg Tablet 4 MG PO ×2 (09:34→17:57)
[2020-05-29] MEDS: risperiDONE 0.25 mg Tablet PO ×2 (09:34→17:57)
[2020-05-29 12:19] LABS: Glucose Point of Care 253 mg/dL (70-110)
--- NOTE | 2020-05-29 12:51 | PC.CHAP ---
Pastoral Care Encounter/Spiritual Assessment Type of Contact [] Declined gmat tutor visit [] Patient/Family/Request visit [] Outpatient visit [] Follow-up visit [] Physician referral [] Code/Alert [] Routine visit [] Staff referral [] Actively dying [] Patient sleeping [] Family support [] [] Out of room [] Palliative care [] [xx] Receiving care in room [] Pre-surgical visit [] Trauma [] Long length of stay [] ICU visit [] Other: Relational/Emotional Strength [] Patient feels connected with others/family/visitors/staff [] Distress [] Loneliness/isolation [] Abandonment Spirituality of Patient [] Person of Winsome [] Attends Muslim of their Winsome [] Believes in Prayer [] Reads Bible or Samaritan materials [] There are Spiritual issues to be addressed Story Analyst Interventions [] Prayer [] Active listening [] Non-anxious presence [] Spiritual/emotional support [] Crisis/trauma care [] Spiritual counseling [] Bereavement support [] Provided bereavement packet [] Provided Bible/devotional materials [] Provided toy/stuffed animal, coloring book to patient or family member [] Provided Communion [] Anointing/[place] [] Salvation [] Completed spiritual assessment [] Other: Impact on Illness or Injury [] Angry [] Fearful [] Anxious [] Often cries [] Exhaustion [] Unable to work [] Unable to attend sikh [] Unable to walk/stand [] Unable to read [] Unable to drive [] Unable to eat/drink [] Unable to sleep [] Unable to be with family [] Patient intubated [] Other: Summary Patient not in mood for visit today. She stated nurse made her mad when giving her a shot. Follow up visit needed. Time spent with patient 2 minutes
--- NOTE | 2020-05-29 15:25 | PM.PN ---
Subjective Subjective: Interval history: The patient is doing and looking better. She reports improved generalized weakness. Denies any pain. No fever or chills. No dysuria. No chest pain, shortness of breath, cough, palpitations. That is okay. Medications: Reviewed: Yes Medication Review Details: Generic Name Dose Route Start Last Admin Trade Name Mitchell PRN Reason Stop Dose Admin Aspirin 81 mg 05/28/20 09:15 05/29/20 08:40 Aspirin 81 Mg Ec Tablet PO 81 mg DAILY DARIELA Administration Atorvastatin Calci um 20 mg 05/29/20 09:00 05/29/20 08:40 Atorvastatin 40 Mg Tablet PO 20 mg DAILY DARIELA Administration Enoxaparin Sodium 40 mg 05/28/20 03:45 05/29/20 03:14 Enoxaparin 40 Mg /0.4 Ml Syringe SUBCUT 40 mg Q24H DARIELA Administration Gabapentin 300 mg 05/28/20 15:00 05/29/20 15:13 Gabapentin 300 M g Capsule PO 300 mg TID DARIELA Administration Glimepiride 4 mg 05/29/20 09:00 05/29/20 09:34 Glimepiride 2 Mg Tablet PO 4 mg BID DARIELA Administration Ceftriaxone Sodium 1,000 mg/ 50 mls @ 100 mls/ hr 05/29/20 09:00 05/29/20 09:36 Sodium Chloride IV Infused Q24H [facility] Infusion Protocol Insulin Aspart 0 unit 05/28/20 12:00 05/29/20 12:42 Insulin Aspart 1 00 Unit/1 Ml SUBCUT 8 unit WM&BEDTIME DARIELA Administration Protocol Lisinopril 5 mg 05/29/20 09:00 05/29/20 08:40 Lisinopril 5 Mg Tablet PO 5 mg DAILY DARIELA Administration Nystatin 1 applic 05/29/20 09:00 05/29/20 09:17 Nystatin Powder 15 Gm Btl TOPICAL Not Given DAILY DARIELA Risperidone 0.25 mg 05/28/20 18:00 05/29/20 09:34 Risperidone 0.25 Mg Tablet PO 0.25 mg BID DARIELA Administration Tamsulosin HCl 0.4 mg 05/29/20 09:00 05/29/20 08:40 Tamsulosin 0.4 M g Capsule PO 0.4 mg DAILY DARIELA Administration Vitals/I&O/Wt Last Vital Signs Temp 97.5 F L 05/29/20 15:08 Pulse 100 05/29/20 15:08 Resp 18 05/29/20 15:08 BP 125/67 05/29/20 15:08 Pulse Ox 97 05/29/20 15:08 05/29/20 05/29/20 05/29/20 06:59 14:59 22:59 Intake Total 500 / 2180 1010 / 1010 Balance 500 / 2180 1010 / 1010 Weight last 48 hrs Weight 90.718 kg Physical Exam Narrative: EXAM NARRATIVE: Awake alert oriented. No acute distress. Mood and affect are appropriate. Responses are adequate. Skin is warm and dry. Moist mucous membranes. Neck supple. No JVD Lungs are clear to auscultation bilaterally. No respiratory distress Heart S1, S2, regular Abdomen soft, nontender, bowel sounds are present Extremities trace edema. No cyanosis no calf tenderness bilaterally Neuro examination is nonfocal. Normal speech. No facial asymmetry. Data : 05/29/20 05:20 05/29/20 05:20 Micro: Microbiology 05/28/20 00:37 Urine Culture - Preliminary Urine,Clean Catch 05/28/20 03:56 Blood Culture - Preliminary Blood NEGATIVE TO DATE 05/28/20 03:55 Blood Culture - Preliminary Blood NEGATIVE TO DATE A&P Assessment and plan (1) Acute UTI: Status: Acute (2) Weakness: Status: Acute (3) Hyponatremia: Status: Acute Generalized weakness due to suspected UTI - UA + leukocyte esterase, 40-55 WBC, trace bacteria - S/p Rocephin 1g IV x 1 in ER - Will continue q24hr - Follow up on urine culture - Follow up on blood culture x2 - Will consult PT/OT - Fall precautions - Will also check TSH in am Hyponatremia - Euvolemic - will obtain urine na/creatinine/chloride - NS at 50cchr after - Repeat BMP in am Diabetes mellitus - Sliding scale insulin - Qachs checks - Diabetic diet COPD w/o exacerbation - No respiratory distress or hypoxia on arrival - Stable continue home regimen Hypertension - Verify home meds Dyslipidemia - Verify home meds DVT pox - SCDS - Lovenox 40 mg SQ daily [place] Generalized weakness. Probably due to UTI and hyponatremia. Associated generalized deconditioning and debilitated. Continue OT eval and treat. Case management is working on placement. UTI. Continue Rocephin. Wait for the culture results. Hyponatremia. Could be from fluid overload. Will order urinalysis serum osmolality and urine sodium level. Residuals normal. Hospital history of CHF. Fluid overload is possible. However there is no evidence of CHF exacerbation. Will resume home medications including her furosemide, lisinopril. ASA 81 mg Hypertension. Well-controlled. Continue current management. Diabetes. I will stop her pioglitazone. We will continue adjusting her other medications. Continue insulin sliding scale. DVT prophylaxis. Lovenox. The plan of care was discussed with the patient. She verbalized understanding and agreement. Discussed with multidisciplinary team. Attestations Medical Necessity Statement*: Placement pending. Coding Level of Care Code Acute Statistical Programmer Analyst for Ole[employer] Diagnoses Acute UTI N39.0 Weakness R53.1 Hyponatremia E87.1
[2020-05-29 15:53] LABS: Osmolality Serum 274 mOsm/kg (278-305)
[2020-05-29 17:00] LABS: Glucose Point of Care 217 mg/dL (70-110)
[2020-05-29] MEDS: FUROsemide 20 mg Tablet PO (17:57)
[2020-05-29 20:19] LABS: Glucose Point of Care 248 mg/dL (70-110)
[2020-05-29] MEDS: acetaminophen 325 mg Tablet 650 MG PO (21:55)
[2020-05-30] VITALS (10 sets, daily range): BP systolic 108–136; BP diastolic 58–79; PULSE 91–104; RESP 18–20; TEMP 36.4–36.9; O2SAT 91–95
[2020-05-30] MEDS: enoxaparin 40 mg/0.4 mL Syringe SUBCUT (04:03)
[2020-05-30 06:26] LABS: Glucose Point of Care 149 mg/dL (70-110)
[2020-05-30 06:42] LABS: Basophils # 0.1 10^3/uL (0.0-0.1); Basophils % 0.9 %; Eosinophils # 0.4 10^3/uL (0.0-0.8); Eosinophils % 6.6 %; Hematocrit 34.4 % (37.0-47.0); Hemoglobin 11.1 g/dL (11.5-15.3); Lymphocytes # 3.2 10^3/uL (0.8-4.8); Lymphocytes % 49.1 %; Mean Corpuscular HGB Conc 32.3 g/dL (30.0-36.0); Mean Corpuscular Hemoglobin 29.6 pg (28.0-34.0); Mean Corpuscular Volume 91.7 fL (81-99); Mean Platelet Volume 8.7 fL (7.4-10.4); Monocytes # 0.8 10^3/uL (0.2-0.9); Monocytes % 11.8 %; Neutrophils # 2.05 10^3/uL (1.8-7.7); Neutrophils % 31.6 %; Nucleated Red Blood Cells % 0 %; Platelet Count 220 10^3/cmm (130-400); Red Blood Count 3.75 10^6/uL (4.1-5.3); Red Cell Distribution Width 13.6 % (12.1-15.1); White Blood Count 6.5 10^3/uL (4.0-10.0)
[2020-05-30 07:15] LABS: Albumin Level 2.9 g/dL (3.5-5.2); Anion Gap 11.2 (5-19); Blood Urea Nitrogen 9 mg/dL (8-23); Calcium 8.1 mg/dL (8.5-10.5); Carbon Dioxide 30 mmol/L (22-29); Chloride 100 mmol/L (98-107); Glucose 145 mg/dL (65-115); Magnesium 1.9 mg/dL (1.7-2.3); Phosphorus 3.1 mg/dL (2.5-4.5); Potassium 4.2 mmol/L (3.5-5.1); Sodium 137 mmol/L (136-145)
[2020-05-30] MEDS: cefTRIAXone 1,000 MG in sodium chloride 0.9% (plus) 50 ML 100 MG IV (09:25)
[2020-05-30] MEDS: aspirin 81 mg EC Tablet PO (09:26)
[2020-05-30] MEDS: risperiDONE 0.25 mg Tablet PO ×2 (09:26→17:45)
[2020-05-30] MEDS: glimepiride 2 mg Tablet 4 MG PO ×2 (09:26→17:43)
[2020-05-30] MEDS: tamsulosin 0.4 mg Capsule PO (09:26)
[2020-05-30] MEDS: FUROsemide 20 mg Tablet PO ×2 (09:26→17:44)
[2020-05-30] MEDS: gabapentin 300 mg Capsule PO ×3 (09:27→20:35)
[2020-05-30] MEDS: lisinopril 5 mg Tablet PO (09:27)
[2020-05-30] MEDS: nystatin powder 15 gm Btl 1 APPLIC TOPICAL (09:27)
[2020-05-30] MEDS: atorvastatin 40 mg Tablet 20 MG PO (09:28)
[2020-05-30 11:45] LABS: Glucose Point of Care 334 mg/dL (70-110)
[2020-05-30 17:04] LABS: Glucose Point of Care 198 mg/dL (70-110)
--- NOTE | 2020-05-30 17:18 | P.PN_ITS ---
Subjective Subjective: Interval history: Doing okay. No significant changes or events. Denies any active complaints. Medications: Reviewed: Yes Vitals/I&O/Wt Last Vital Signs Temp 98.4 F 05/30/20 15:10 Pulse 101 H 05/30/20 15:10 Resp 18 05/30/20 15:10 BP 115/79 05/30/20 15:10 Pulse Ox 95 05/30/20 15:10 05/30/20 05/30/20 05/30/20 06:59 14:59 22:59 Intake Total 720 / 2330 770 / 770 Balance 720 / 2330 770 / 770 Physical Exam Narrative: EXAM NARRATIVE: Awake alert oriented. No acute distress. Mood and affect are appropriate. Responses are adequate. Skin is warm and dry. Moist mucous membranes. Neck supple. No JVD Lungs are clear to auscultation bilaterally. No respiratory distress Heart S1, S2, regular Abdomen soft, nontender, bowel sounds are present Extremities trace edema. No cyanosis no calf tenderness bilaterally Neuro examination is nonfocal. Normal speech. No facial asymmetry. Data : 05/30/20 06:22 05/30/20 06:22 Micro: Microbiology 05/28/20 00:37 Urine Culture - Final Urine,Clean Catch A&P Assessment and plan (1) Acute UTI: Status: Acute (2) Weakness: Status: Acute (3) Hyponatremia: Status: Acute Generalized weakness due to suspected UTI - UA + leukocyte esterase, 40-55 WBC, trace bacteria - S/p Rocephin 1g IV x 1 in ER - Will continue q24hr - Follow up on urine culture - Follow up on blood culture x2 - Will consult PT/OT - Fall precautions - Will also check TSH in am Hyponatremia - Euvolemic - will obtain urine na/creatinine/chloride - NS at 50cchr after - Repeat BMP in am Diabetes mellitus - Sliding scale insulin - Qachs checks - Diabetic diet COPD w/o exacerbation - No respiratory distress or hypoxia on arrival - Stable continue home regimen Hypertension - Verify home meds Dyslipidemia - Verify home meds DVT pox - SCDS - Lovenox 40 mg SQ daily [place] Generalized weakness. Probably due to UTI and hyponatremia. Associated generalized deconditioning and debilitated. Continue OT eval and treat. Case management is working on placement. UTI. Continue Rocephin. Wait for the culture results. Hyponatremia. Could be from fluid overload. Will order urinalysis serum osmolality and urine sodium level. Residuals normal. Hospital history of CHF. Fluid overload is possible. However there is no matthew dence of CHF exacerbation. Will resume home medications including her furosemide, lisinopril. ASA 81 mg Hypertension. Well-controlled. Continue current management. Diabetes. I will stop her pioglitazone. We will continue adjusting her other medications. Continue insulin sliding scale. DVT prophylaxis. Lovenox. The plan of care was discussed with the patient. She verbalized understanding and agreement. Attestations Medical Necessity Statement*: Pending placement Coding Level of Care Code Acute Naphthalene Operator Helper for Olegg Fwd Diagnoses Acute UTI N39.0 Weakness R53.1 Hyponatremia E87.1
[2020-05-30 20:56] LABS: Glucose Point of Care 214 mg/dL (70-110)
[2020-05-31] VITALS (8 sets, daily range): BP systolic 108–133; BP diastolic 59–78; PULSE 98–114; RESP 16–21; TEMP 36.2–37.2; O2SAT 92–94
[2020-05-31 06:34] LABS: Glucose Point of Care 171 mg/dL (70-110)
[2020-05-31] MEDS: enoxaparin 40 mg/0.4 mL Syringe SUBCUT (06:43)
--- NOTE | 2020-05-31 07:27 | PC.NURSE ---
Patient did not want lovenox at 0345. She wanted to wait till later in the morning to take it. lovenox was given around 0630.
[2020-05-31] MEDS: FUROsemide 20 mg Tablet PO ×2 (09:55→18:03)
[2020-05-31] MEDS: atorvastatin 40 mg Tablet 20 MG PO (09:55)
[2020-05-31] MEDS: aspirin 81 mg EC Tablet PO (09:55)
[2020-05-31] MEDS: glimepiride 2 mg Tablet 4 MG PO ×2 (09:56→18:04)
[2020-05-31] MEDS: nystatin powder 15 gm Btl 1 APPLIC TOPICAL (09:56)
[2020-05-31] MEDS: lisinopril 5 mg Tablet PO (09:57)
[2020-05-31] MEDS: tamsulosin 0.4 mg Capsule PO (09:57)
[2020-05-31] MEDS: risperiDONE 0.25 mg Tablet PO ×2 (09:57→18:04)
[2020-05-31] MEDS: gabapentin 300 mg Capsule PO ×3 (09:57→20:59)
[2020-05-31] MEDS: cefTRIAXone 1,000 MG in sodium chloride 0.9% (plus) 50 ML 100 MG IV (09:58)
[2020-05-31 10:40] LABS: Glucose Point of Care 301 mg/dL (70-110)
--- NOTE | 2020-05-31 12:40 | PM.PN ---
Subjective Subjective: Interval history: Doing okay. No significant changes or events. Denies any active complaints. Constipation has resolved. Medications: Reviewed: Yes Vitals/I&O/Wt Last Vital Signs Temp 98.9 F 05/31/20 11:41 Pulse 114 H 05/31/20 11:41 Resp 18 05/31/20 11:41 BP 108/59 05/31/20 11:41 Pulse Ox 93 05/31/20 11:41 05/30/20 05/31/20 05/31/20 22:59 06:59 14:59 Intake Total 480 / 1250 50 / 50 Output Total 0 / 0 0 / 0 Balance 480 / 1250 0 / 1250 50 / 50 Physical Exam Narrative: EXAM NARRATIVE: Awake alert oriented. No acute distress. Mood and affect are appropriate. Responses are adequate. Skin is warm and dry. Moist mucous membranes. Neck supple. No JVD Lungs are clear to auscultation bilaterally. No respiratory distress Heart S1, S2, regular Abdomen soft, nontender, bowel sounds are present Extremities trace edema. No cyanosis no calf tenderness bilaterally Neuro examination is nonfocal. Normal speech. No facial asymmetry. Data : 05/30/20 06:22 05/30/20 06:22 Micro: Microbiology 05/28/20 00:37 Urine Culture - Final Urine,Clean Catch A&P Assessment and plan (1) Acute UTI: Status: Acute (2) Weakness: Status: Acute (3) Hyponatremia: Status: Acute Generalized weakness due to suspected UTI - UA + leukocyte esterase, 40-55 WBC, trace bacteria - S/p Rocephin 1g IV x 1 in ER - Will continue q24hr - Follow up on urine culture - Follow up on blood culture x2 - Will consult PT/OT - Fall precautions - Will also check TSH in am Hyponatremia - Euvolemic - will obtain urine na/creatinine/chloride - NS at 50cchr after - Repeat BMP in am Diabetes mellitus - Sliding scale insulin - Qachs checks - Diabetic diet COPD w/o exacerbation - No respiratory distress or hypoxia on arrival - Stable continue home regimen Hypertension - Verify home meds Dyslipidemia - Verify home meds DVT pox - SCDS - Lovenox 40 mg SQ daily [place] Generalized weakness. Probably due to UTI and hyponatremia. Associated generalized deconditioning and debilitated. Continue OT eval and treat. Case management is working on placement. UTI. Will complete Rocephin today. Hyponatremia. Could be from fluid overload. Urine testing was not done due to incontinence. The work-up can be completed in outpatient settings. Will defer to the PCP Hospital history of CHF. Fluid overload is possible. However there is no evidence of CHF exacerbation. Will resume home medications including her furosemide, lisinopril. ASA 81 mg Hypertension. Well-controlled. Continue current management. Diabetes. I will stop her pioglitazone. We will continue adjusting her other medications. Continue insulin sliding scale. DVT prophylaxis. Lovenox. The plan of care was discussed with the patient. She verbalized understanding and agreement. Attestations Medical Necessity Statement*: Pending placement Coding Level of Care Code Acute Trimmer Press Clippings for Donna Tuttle Diagnoses Acute UTI N39.0 Weakness R53.1 Hyponatremia E87.1
--- NOTE | 2020-05-31 14:13 | PC.CHAP ---
Pastoral Care Encounter/Spiritual Assessment Type of Contact [] Declined equip maint eng visit [] Patient/Family/Request visit [] Outpatient visit [XX] Follow-up visit [] Physician referral [] Code/Alert [] Routine visit [] Staff referral [] Actively dying [XX] Patient sleeping [] Family support [] [] Out of room [] Palliative care [] [] Receiving care in room [] Pre-surgical visit [] Trauma [] Long length of stay [] ICU visit [] Other: Relational/Emotional Strength [] Patient feels connected with others/family/visitors/staff [] Distress [] Loneliness/isolation [] Abandonment Spirituality of Patient [] Person of Winsome [] Attends Uatsdin of their Winsome [] Believes in Prayer [] Reads Bible or Rastafari materials [] There are Spiritual issues to be addressed Tanbark Laborer Interventions [] Prayer [] Active listening [] Non-anxious presence [] Spiritual/emotional support [] Crisis/trauma care [] Spiritual counseling [] Bereavement support [] Provided bereavement packet [] Provided Bible/devotional materials [] Provided toy/stuffed animal, coloring book to patient or family member [] Provided Communion [] Anointing/[place] [] Salvation [] Completed spiritual assessment [] Other: Impact on Illness or Injury [] Angry [] Fearful [] Anxious [] Often cries [] Exhaustion [] Unable to work [] Unable to attend pentecostalism [] Unable to walk/stand [] Unable to read [] Unable to drive [] Unable to eat/drink [] Unable to sleep [] Unable to be with family [] Patient intubated [] Other: Summary Time spent with patient
[2020-05-31 17:12] LABS: Glucose Point of Care 174 mg/dL (70-110)
[2020-05-31 20:32] LABS: Glucose Point of Care 261 mg/dL (70-110)
[2020-06-01] VITALS (8 sets, daily range): BP systolic 108–131; BP diastolic 69–82; PULSE 78–108; RESP 16–19; TEMP 36.6–37.3; O2SAT 91–98
[2020-06-01] MEDS: enoxaparin 40 mg/0.4 mL Syringe SUBCUT (04:14)
[2020-06-01 05:52] LABS: Glucose Point of Care 186 mg/dL (70-110)
[2020-06-01] MEDS: glimepiride 2 mg Tablet 4 MG PO ×2 (08:19→17:50)
[2020-06-01] MEDS: FUROsemide 20 mg Tablet PO ×2 (08:19→17:49)
[2020-06-01] MEDS: lisinopril 5 mg Tablet PO (08:19)
[2020-06-01] MEDS: gabapentin 300 mg Capsule PO ×3 (08:19→22:10)
[2020-06-01] MEDS: tamsulosin 0.4 mg Capsule PO (08:19)
[2020-06-01] MEDS: aspirin 81 mg EC Tablet PO (08:19)
[2020-06-01] MEDS: risperiDONE 0.25 mg Tablet PO ×2 (08:19→17:50)
[2020-06-01] MEDS: atorvastatin 40 mg Tablet 20 MG PO (08:20)
[2020-06-01] MEDS: nystatin powder 15 gm Btl 1 APPLIC TOPICAL (08:22)
--- NOTE | 2020-06-01 10:07 | PC.CHAP ---
Pastoral Care Encounter/Spiritual Assessment Type of Contact [] Declined blood donor unit assistant visit [] Patient/Family/Request visit [] Outpatient visit [] Follow-up visit [] Physician referral [] Code/Alert [x] Routine visit [] Staff referral [] Actively dying [] Patient sleeping [] Family support [] [] Out of room [] Palliative care [] [] Receiving care in room [] Pre-surgical visit [] Trauma [] Long length of stay [] ICU visit [] Other: Relational/Emotional Strength [x] Patient feels connected with others/family/visitors/staff [] Distress [] Loneliness/isolation [] Abandonment Spirituality of Patient [x] Person of Winsome [] Attends Mormon of their Winsome [x] Believes in Prayer [] Reads Bible or Zoroastrianism materials [] There are Spiritual issues to be addressed Head Screen Worker Interventions [x] Prayer [x] Active listening [x] Non-anxious presence [] Spiritual/emotional support [] Crisis/trauma care [] Spiritual counseling [] Bereavement support [] Provided bereavement packet [] Provided Bible/devotional materials [] Provided toy/stuffed animal, coloring book to patient or family member [] Provided Communion [] Anointing/[place] [] Salvation x[] Completed spiritual assessment [] Other: Impact on Illness or Injury [] Angry [] Fearful [] Anxious [] Often cries [] Exhaustion [] Unable to work [] Unable to attend judaism [] Unable to walk/stand [] Unable to read [] Unable to drive [] Unable to eat/drink [] Unable to sleep [] Unable to be with family [] Patient intubated [] Other: Summary patient feeling muchn zak rvery happy with care Time spent with patient 15 min
[2020-06-01 10:52] LABS: Glucose Point of Care 345 mg/dL (70-110)
[2020-06-01] MEDS: acetaminophen 325 mg Tablet 650 MG PO (16:07)
[2020-06-01 16:25] LABS: Glucose Point of Care 223 mg/dL (70-110)
--- NOTE | 2020-06-01 17:11 | P.PN_ITS ---
Subjective Subjective: Interval history: No significant changes or events since yesterday. The patient reports feeling well. Denies any active complaints today. Medications: Reviewed: Yes Medication Review Details: Generic Name Dose Route Start Last Admin Trade Name Mitchell PRN Reason Stop Dose Admin Acetaminophen 650 mg 05/28/20 03:34 06/01/20 16:07 Acetaminophen 32 5 Mg Tablet PO 650 mg Q6H PRN Administration Mild/Mod Pain Or Temp >/= 101 Aspirin 81 mg 05/28/20 09:15 06/01/20 08:19 Aspirin 81 Mg Ec Tablet PO 81 mg DAILY DARIELA Administration Atorvastatin Calci um 20 mg 05/29/20 09:00 06/01/20 08:20 Atorvastatin 40 Mg Tablet PO 20 mg DAILY DARIELA Administration Enoxaparin Sodium 40 mg 05/28/20 03:45 06/01/20 04:14 Enoxaparin 40 Mg /0.4 Ml Syringe SUBCUT 40 mg Q24H DARIELA Administration Furosemide 20 mg 05/29/20 18:00 06/01/20 08:19 Furosemide 20 Mg Tablet PO 20 mg BIDWM DARIELA Administration Gabapentin 300 mg 05/28/20 15:00 06/01/20 16:07 Gabapentin 300 M g Capsule PO 300 mg TID DARIELA Administration Glimepiride 4 mg 05/29/20 09:00 06/01/20 08:19 Glimepiride 2 Mg Tablet PO 4 mg BID DARIELA Administration Insulin Aspart 0 unit 05/28/20 12:00 06/01/20 11:08 Insulin Aspart 1 00 Unit/1 Ml SUBCUT 12 unit WM&BEDTIME DARIELA Administration Protocol Lisinopril 5 mg 05/29/20 09:00 06/01/20 08:19 Lisinopril 5 Mg Tablet PO 5 mg DAILY DARIELA Administration Nystatin 1 applic 05/29/20 09:00 06/01/20 08:22 Nystatin Powder 15 Gm Btl TOPICAL 1 applic DAILY DARIELA Administration Risperidone 0.25 mg 05/28/20 18:00 06/01/20 08:19 Risperidone 0.25 Mg Tablet PO 0.25 mg BID DARIELA Administration Tamsulosin HCl 0.4 mg 05/29/20 09:00 06/01/20 08:19 Tamsulosin 0.4 M g Capsule PO 0.4 mg DAILY DARIELA Administration Vitals/I&O/Wt Last Vital Signs Temp 97.8 F 06/01/20 15:23 Pulse 78 06/01/20 15:23 Resp 19 H 06/01/20 15:23 BP 128/75 06/01/20 15:23 Pulse Ox 98 06/01/20 15:23 06/01/20 06/01/20 06/01/20 06:59 14:59 22:59 Intake Total 300 / 950 250 / 250 Balance 300 / 950 250 / 250 Physical Exam Narrative: EXAM NARRATIVE: Awake alert oriented. No acute distress. Mood and affect are appropriate. Responses are adequate. Skin is warm and dry. Moist mucous membranes. Neck supple. No JVD Lungs are clear to auscultation bilaterally. No respiratory distress Heart S1, S2, regular Abdomen soft, nontender, bowel sounds are present Extremities trace edema. No cyanosis no calf tenderness bilaterally Neuro examination is nonfocal. Normal speech. No facial asymmetry. Data : 05/30/20 06:22 05/30/20 06:22 A&P Assessment and plan (1) Acute UTI: Status: Acute (2) Weakness: Status: Acute (3) Hyponatremia: Status: Acute Generalized weakness due to suspected UTI - UA + leukocyte esterase, 40-55 WBC, trace bacteria - S/p Rocephin 1g IV x 1 in ER - Will continue q24hr - Follow up on urine culture - Follow up on blood culture x2 - Will consult PT/OT - Fall precautions - Will also check TSH in am Hyponatremia - Euvolemic - will obtain urine na/creatinine/chloride - NS at 50cchr after - Repeat BMP in am Diabetes mellitus - Sliding scale insulin - Qachs checks - Diabetic diet COPD w/o exacerbation - No respiratory distress or hypoxia on arrival - Stable continue home regimen Hypertension - Verify home meds Dyslipidemia - Verify home meds DVT pox - SCDS - Lovenox 40 mg SQ daily [place] Generalized weakness. Probably due to UTI and hyponatremia. Associated generalized deconditioning and debilitated. Continue OT eval and treat[facility] She is accepted as of tomorrow. UTI. Rocephin treatment is complete. Currently asymptomatic Hyponatremia. Could be from fluid overload. Urine testing was not done due to incontinence. The work-up can be completed in outpatient settings. Will defer to the PCP Hospital history of CHF. Fluid overload is possible. However there is no evidence of CHF exacerbation. Will resume home medications including her furosemide, lisinopril. ASA 81 mg Hypertension. Well-controlled. Continue current management. Diabetes. I will stop her pioglitazone. We will continue adjusting her other medications. Continue insulin sliding scale. DVT prophylaxis. Lovenox. The plan of care was discussed with the patient. She verbalized understanding and agreement. Attestations Medical Necessity Statement*: Will be discharged tomorrow to [facility] facility. Coding Level of Care Code Acute Agricultural Engineering Technicians for Donna Tuttle Diagnoses Acute UTI N39.0 Weakness R53.1 Hyponatremia E87.1
[2020-06-01] MEDS: metformin 500 mg Tablet PO (17:50)
[2020-06-01 21:46] LABS: Glucose Point of Care 264 mg/dL (70-110)
[2020-06-02] VITALS (7 sets, daily range): BP systolic 100–120; BP diastolic 60–72; PULSE 82–102; RESP 16–18; TEMP 36.6–37.1; O2SAT 90–93
[2020-06-02] MEDS: enoxaparin 40 mg/0.4 mL Syringe SUBCUT (04:23)
[2020-06-02 06:48] LABS: Glucose Point of Care 141 mg/dL (70-110)
[2020-06-02] MEDS: glimepiride 2 mg Tablet 4 MG PO ×2 (08:11→18:07)
[2020-06-02] MEDS: FUROsemide 20 mg Tablet PO ×2 (08:11→18:07)
[2020-06-02] MEDS: metformin 500 mg Tablet PO ×2 (08:11→18:07)
[2020-06-02] MEDS: tamsulosin 0.4 mg Capsule PO (08:11)
[2020-06-02] MEDS: risperiDONE 0.25 mg Tablet PO ×2 (08:11→18:08)
[2020-06-02] MEDS: aspirin 81 mg EC Tablet PO (08:11)
[2020-06-02] MEDS: atorvastatin 40 mg Tablet 20 MG PO (08:11)
[2020-06-02] MEDS: gabapentin 300 mg Capsule PO ×3 (08:12→21:40)
[2020-06-02] MEDS: lisinopril 5 mg Tablet PO (08:12)
[2020-06-02] MEDS: nystatin powder 15 gm Btl 1 APPLIC TOPICAL (08:12)
--- NOTE | 2020-06-02 10:04 | PC.SOCIAL ---
IMM Updated Updated pt on Pg 2 IMM. No questions voiced. Provided pt a copy. Signed, dated, & timed a copy & placed in chart.
--- NOTE | 2020-06-02 11:23 | P.DS_ITS ---
Discharge Providers Date of Admission: 05/28/20 02:49 Date of Discharge: June 02, 2020 Attending Provider at Admission: Donato Turcios Attending Provider at Discharge: Damien Cohen Primary Care Provider: RERE Robles Diagnoses at Discharge Discharge Diagnosis (1) Acute UTI: Status: Acute (2) Weakness: Status: Acute (3) Hyponatremia: Status: Acute Reason for Visit Reason for Visit: WEAK X 2 DAYS Hospital Course Hospital Course Discharge diagnoses and problem list Generalized deconditioning and debilitated state, acute on chronic. Probably due to UTI and hyponatremia. Improved. [facility]ed to [facility] facility. Ready for discharge. Denies any active complaints today. UTI. Rocephin treatment is complete. Currently asymptomatic Hyponatremia. Currently resolved. Could be from fluid overload. Urine testing was not done due to incontinence. The work-up can be completed in outpatient settings. Will defer to the PCP Hospital history of CHF. Fluid overload is possible. However there is no evidence of CHF exacerbation. Will resume home medications including her furosemide, lisinopril. Continue ASA 81 mg Hypertension. Well-controlled. Continue current management. Diabetes. I will stop her pioglitazone, and continue the rest of the medications. DVT prophylaxis. Received Lovenox. Constipation. Resolved. Being discharged on docusate. Physical Exam Narrative: EXAM NARRATIVE: Awake alert oriented. No acute distress. Mood and affect are appropriate. Responses are adequate. Skin is warm and dry. Moist mucous membranes. Neck supple. No JVD Lungs are clear to auscultation bilaterally. No respiratory distress Heart S1, S2, regular Abdomen soft, nontender, bowel sounds are present Extremities trace edema. No cyanosis no calf tenderness bilaterally Neuro examination is nonfocal. Normal speech. No facial asymmetry. Discharge Data Data Completed and Pending: Completed Studies During Hospitalization Category Date Time Status CT head wo con* 7 0450 Urgent Cat Scan 05/28/20 01:19 Completed XR chest 1V russell ble [id number] Stat Exams 05/28/20 00:13 Completed CV echo complete* [id number] Routine Ultrasound 05/28/20 08:47 Completed Pending at discharge Category Date Time Status Osmolality Urine Routine Lab 05/28/20 08:47 Uncollected Urine Random Sodi um Routine Lab 05/28/20 08:47 Uncollected Labs from last 24 hours 06/02/20 06/01/20 06/01/20 06:12 21:39 16:09 POC Glucose 141 H 264 H 223 H Vitals: Last Vital Signs Temp 97.9 F 06/02/20 08:00 Pulse 99 06/02/20 08:00 Resp 18 06/02/20 08:00 BP 116/72 06/02/20 08:00 Pulse Ox 91 06/02/20 08:00 Discharge Plan Discharge Patient Disposition: Xfer SNF Condition: Stable Prescriptions: New aspirin 81 mg Tablet,Delayed Release (Dr/Ec) 81 mg PO DAILY Qty: 30 RF: 0 docusate sodium 100 mg capsule 100 mg PO BID Qty: 30 RF: 0 Continued atorvastatin 20 mg tablet 20 mg PO DAILY RF: 0 risperidone 0.25 mg tablet 0.25 mg PO BID RF: 0 tamsulosin 0.4 mg capsule 0.4 mg PO DAILY RF: 0 metformin 1,000 mg tablet 1,000 mg PO BID RF: 0 glimepiride 4 mg tablet 4 mg PO BID RF: 0 gabapentin 300 mg capsule 300 mg PO TID RF: 0 lisinopril 5 mg tablet 5 mg PO DAILY RF: 0 furosemide 20 mg tablet 20 mg PO DAILY RF: 0 Nystop 100,000 unit/gram powder 1 applic TOPICAL DAILY RF: 0 albuterol sulfate 90 mcg/actuation HFA aerosol inhaler 2 puff INHALATION DAILY PRN (Reason: Shortness Of Breath) RF: 0 Discontinued meloxicam 7.5 mg tablet 7.5 mg PO BID RF: 0 pioglitazone 30 mg tablet 30 mg PO DAILY RF: 0 cefdinir 300 mg capsule 300 mg PO BID RF: 0 Discharge Orders: Discharge Order (Routine); Ordered 06/02/20 Ordered By: Damien Cohen Other Ambulatory Orders: Basic Metabolic Panel (Routine) Timeframe: 1 Week Facility: [facility] - Location: Lab - Main Lab Ordered By: Damien Cohen Referrals: Farida Ford FNP [Primary Care Provider] - Discharge Diet: Usual diet Discharge Activity: Increase activity as tolerated Activity Restrictions/Additional Instructions: Please come back to emergency room if you develop any new complaints, any new weakness, problems with urination, fever or chills, nausea or vomiting, chest pain, shortness of breath, cough, palpitation, confusion or any other new symptoms. Discharge Attestations Time Spent in Discharge Care*: less than 30 min Quality Metrics Clinical Quality Measures During this hospital stay, did patient experience: None Coding Level of Care Code Acute Chg FW DC note Diagnoses Acute UTI N39.0 Weakness R53.1 Hyponatremia E87.1
[2020-06-02 12:03] LABS: Glucose Point of Care 280 mg/dL (70-110)
[2020-06-02 16:59] LABS: Glucose Point of Care 250 mg/dL (70-110)
[2020-06-02 21:32] LABS: Glucose Point of Care 284 mg/dL (70-110)
[2020-06-03] VITALS (7 sets, daily range): BP systolic 114–125; BP diastolic 62–72; PULSE 64–97; RESP 16–20; TEMP 36.5–37.1; O2SAT 90–95
[2020-06-03] MEDS: enoxaparin 40 mg/0.4 mL Syringe SUBCUT (02:50)
[2020-06-03 06:45] LABS: Glucose Point of Care 304 mg/dL (70-110)
[2020-06-03 08:19] LABS: Glucose Point of Care 182 mg/dL (70-110)
[2020-06-03] MEDS: risperiDONE 0.25 mg Tablet PO ×2 (09:03→18:02)
[2020-06-03] MEDS: glimepiride 2 mg Tablet 4 MG PO ×2 (09:03→18:02)
[2020-06-03] MEDS: aspirin 81 mg EC Tablet PO (09:03)
[2020-06-03] MEDS: atorvastatin 40 mg Tablet 20 MG PO (09:04)
[2020-06-03] MEDS: FUROsemide 20 mg Tablet PO ×2 (09:04→18:02)
[2020-06-03] MEDS: tamsulosin 0.4 mg Capsule PO (09:04)
[2020-06-03] MEDS: lisinopril 5 mg Tablet PO (09:04)
[2020-06-03] MEDS: gabapentin 300 mg Capsule PO ×3 (09:04→21:15)
[2020-06-03] MEDS: magnesium hydroxide 30 mL UDC PO (09:05)
[2020-06-03 10:39] LABS: Glucose Point of Care 300 mg/dL (70-110)
[2020-06-03] MEDS: nystatin powder 15 gm Btl 1 APPLIC TOPICAL (11:14)
--- NOTE | 2020-06-03 14:57 | PM.PN ---
Subjective Subjective: Interval history: No significant changes or events since yesterday. The patient reports feeling well. Denies any active complaints today. Discussed with the nursing staff. No decub skin issues. Medications: Reviewed: Yes Vitals/I&O/Wt Last Vital Signs Temp 98.6 F 06/03/20 11:59 Pulse 84 06/03/20 11:59 Resp 18 06/03/20 11:59 BP 121/72 06/03/20 11:59 Pulse Ox 92 06/03/20 11:59 06/02/20 06/03/20 06/03/20 22:59 06:59 14:59 Intake Total 240 / 960 480 / 480 Balance 240 / 960 480 / 480 Physical Exam Narrative: EXAM NARRATIVE: Awake alert oriented. No acute distress. Mood and affect are appropriate. Responses are adequate. Skin is warm and dry. Moist mucous membranes. Neck supple. No JVD Lungs are clear to auscultation bilaterally. No respiratory distress Heart S1, S2, regular Abdomen soft, nontender, bowel sounds are present Extremities trace edema. No cyanosis no calf tenderness bilaterally Neuro examination is nonfocal. Normal speech. No facial asymmetry. Data : 05/30/20 06:22 05/30/20 06:22 A&P Assessment and plan (1) Acute UTI: Status: Acute (2) Weakness: Status: Acute (3) Hyponatremia: Status: Acute Generalized weakness due to suspected UTI - UA + leukocyte esterase, 40-55 WBC, trace bacteria - S/p Rocephin 1g IV x 1 in ER - Will continue q24hr - Follow up on urine culture - Follow up on blood culture x2 - Will consult PT/OT - Fall precautions - Will also check TSH in am Hyponatremia - Euvolemic - will obtain urine na/creatinine/chloride - NS at 50cchr after - Repeat BMP in am Diabetes mellitus - Sliding scale insulin - Qachs checks - Diabetic diet COPD w/o exacerbation - No respiratory distress or hypoxia on arrival - Stable continue home regimen Hypertension - Verify home meds Dyslipidemia - Verify home meds DVT pox - SCDS - Lovenox 40 mg SQ daily [place] Generalized weakness. Probably due to UTI and hyponatremia. Associated generalized deconditioning and debilitated. Continue OT eval and treat. Air bed, frequent repositioning Case discussed with nursing staff. Waiting for [facility] authorization from insurance [email or web address]. UTI. Rocephin treatment is complete. Currently asymptomatic Hyponatremia. Could be from fluid overload. Urine testing was not done due to incontinence. The work-up can be completed in outpatient settings. Will defer to the PCP Hospital history of CHF. Fluid overload is possible. However there is no evidence of CHF exacerbation. Will resume home medications including her furosemide, lisinopril. ASA 81 mg Hypertension. Well-controlled. Continue current management. Diabetes. I will stop her pioglitazone. We will continue adjusting her other medications. Continue insulin sliding scale. DVT prophylaxis. Lovenox. The plan of care was discussed with the patient. She verbalized understanding and agreement. Attestations Medical Necessity Statement*: Hopefully will be able to discharge her soon pending insurance company authorization. Coding Level of Care Code Acute [employer] for Donna Tuttle Diagnoses Acute UTI N39.0 Weakness R53.1 Hyponatremia E87.1
[2020-06-03 17:12] LABS: Glucose Point of Care 226 mg/dL (70-110)
[2020-06-03] MEDS: metformin 500 mg Tablet 1000 MG PO (18:01)
[2020-06-03 20:55] LABS: Glucose Point of Care 258 mg/dL (70-110)
[2020-06-04] VITALS (7 sets, daily range): BP systolic 102–153; BP diastolic 61–84; PULSE 81–95; RESP 16–19; TEMP 36.2–36.9; O2SAT 93–97
[2020-06-04] MEDS: enoxaparin 40 mg/0.4 mL Syringe SUBCUT (03:47)
[2020-06-04 06:13] LABS: Basophils # 0.1 10^3/uL (0.0-0.1); Eosinophils # 0.3 10^3/uL (0.0-0.8); Eosinophils % 2.3 %; Hemoglobin 11.1 g/dL (11.5-15.3); Lymphocytes # 5.2 10^3/uL (0.8-4.8); Lymphocytes % 45.1 %; Mean Corpuscular HGB Conc 31.7 g/dL (30.0-36.0); Mean Corpuscular Hemoglobin 29.8 pg (28.0-34.0); Mean Corpuscular Volume 93.8 fL (81-99); Mean Platelet Volume 8.9 fL (7.4-10.4); Monocytes # 1.1 10^3/uL (0.2-0.9); Monocytes % 9.6 %; Neutrophils # 4.75 10^3/uL (1.8-7.7); Neutrophils % 41.6 %; Nucleated Red Blood Cells % 0 %; Platelet Count 303 10^3/cmm (130-400); Red Blood Count 3.73 10^6/uL (4.1-5.3); Red Cell Distribution Width 14.3 % (12.1-15.1); White Blood Count 11.4 10^3/uL (4.0-10.0)
[2020-06-04 06:42] LABS: Albumin Level 3.2 g/dL (3.5-5.2); Anion Gap 11.6 (5-19); Blood Urea Nitrogen 18 mg/dL (8-23); Calcium 8.6 mg/dL (8.5-10.5); Carbon Dioxide 31 mmol/L (22-29); Chloride 95 mmol/L (98-107); Glucose 163 mg/dL (65-115); Phosphorus 4.1 mg/dL (2.5-4.5); Potassium 4.6 mmol/L (3.5-5.1); Sodium 133 mmol/L (136-145)
[2020-06-04 07:04] LABS: Glucose Point of Care 163 mg/dL (70-110)
[2020-06-04] MEDS: glimepiride 2 mg Tablet 4 MG PO (08:57)
[2020-06-04] MEDS: risperiDONE 0.25 mg Tablet PO (08:57)
[2020-06-04] MEDS: tamsulosin 0.4 mg Capsule PO (08:57)
[2020-06-04] MEDS: atorvastatin 40 mg Tablet 20 MG PO (08:57)
[2020-06-04] MEDS: metformin 500 mg Tablet 1000 MG PO (08:57)
[2020-06-04] MEDS: lisinopril 5 mg Tablet PO (08:57)
[2020-06-04] MEDS: aspirin 81 mg EC Tablet PO (08:57)
[2020-06-04] MEDS: gabapentin 300 mg Capsule PO ×2 (08:57→15:14)
[2020-06-04] MEDS: FUROsemide 20 mg Tablet PO (08:57)
[2020-06-04] MEDS: nystatin powder 15 gm Btl 1 APPLIC TOPICAL (09:17)
--- NOTE | 2020-06-04 09:25 | PC.SOCIAL ---
IMM Updated Updated pt on Pg 2 IMM. No questions voiced. Provided pt a copy. Signed, dated, & timed a copy & placed in chart.
[2020-06-04 10:43] LABS: Glucose Point of Care 291 mg/dL (70-110)
--- NOTE | 2020-06-04 14:26 | P.PN_ITS ---
Subjective Subjective: Interval history: No significant changes or events since yesterday. The patient reports feeling well. Denies any active complaints today. Denies fever, dysuria, chest pain, shortness of breath, cough. No diarrhea. Medications: Reviewed: Yes Medication Review Details: Generic Name Dose Route Start Last Admin Trade Name Freq PRN Reason Stop Dose Admin Acetaminophen 650 mg 05/28/20 03:34 06/01/20 16:07 Acetaminophen 32 5 Mg Tablet PO 650 mg Q6H PRN Administration Mild/Mod Pain Or Temp >/= 101 Aspirin 81 mg 05/28/20 09:15 06/01/20 08:19 Aspirin 81 Mg Ec Tablet PO 81 mg DAILY DARIELA Administration Atorvastatin Calci um 20 mg 05/29/20 09:00 06/01/20 08:20 Atorvastatin 40 Mg Tablet PO 20 mg DAILY DARIELA Administration Enoxaparin Sodium 40 mg 05/28/20 03:45 06/01/20 04:14 Enoxaparin 40 Mg /0.4 Ml Syringe SUBCUT 40 mg Q24H DARIELA Administration Furosemide 20 mg 05/29/20 18:00 06/01/20 08:19 Furosemide 20 Mg Tablet PO 20 mg BIDWM DARIELA Administration Gabapentin 300 mg 05/28/20 15:00 06/01/20 16:07 Gabapentin 300 M g Capsule PO 300 mg TID DARIELA Administration Glimepiride 4 mg 05/29/20 09:00 06/01/20 08:19 Glimepiride 2 Mg Tablet PO 4 mg BID DARIELA Administration Insulin Aspart 0 unit 05/28/20 12:00 06/01/20 11:08 Insulin Aspart 1 00 Unit/1 Ml SUBCUT 12 unit WM&BEDTIME DARIELA Administration Protocol Lisinopril 5 mg 05/29/20 09:00 06/01/20 08:19 Lisinopril 5 Mg Tablet PO 5 mg DAILY DARIELA Administration Nystatin 1 applic 05/29/20 09:00 06/01/20 08:22 Nystatin Powder 15 Gm Btl TOPICAL 1 applic DAILY DARIELA Administration Risperidone 0.25 mg 05/28/20 18:00 06/01/20 08:19 Risperidone 0.25 Mg Tablet PO 0.25 mg BID DARIELA Administration Tamsulosin HCl 0.4 mg 05/29/20 09:00 06/01/20 08:19 Tamsulosin 0.4 M g Capsule PO 0.4 mg DAILY DARIELA Administration Vitals/I&O/Wt Last Vital Signs Temp 97.8 F 06/04/20 10:56 Pulse 88 06/04/20 10:56 Resp 19 H 06/04/20 10:56 BP 147/74 06/04/20 10:56 Pulse Ox 97 06/04/20 10:56 06/03/20 06/04/20 06/04/20 22:59 06:59 14:59 Intake Total 780 / 780 Output Total 300 / 300 Balance 480 / 480 Physical Exam Narrative: EXAM NARRATIVE: Awake alert oriented. No acute distress. Mood and affect are appropriate. Responses are adequate. Skin is warm and dry. Moist mucous membranes. Neck supple. No JVD Lungs are clear to auscultation bilaterally. No respiratory distress Heart S1, S2, regular Abdomen soft, nontender, bowel sounds are present Extremities trace edema. No cyanosis no calf tenderness bilaterally Neuro examination is nonfocal. Normal speech. No facial asymmetry. Data : 06/04/20 05:30 06/04/20 05:30 A&P Assessment and plan (1) Acute UTI: Status: Acute (2) Weakness: Status: Acute (3) Hyponatremia: Status: Acute Generalized weakness due to suspected UTI - UA + leukocyte esterase, 40-55 WBC, trace bacteria - S/p Rocephin 1g IV x 1 in ER - Will continue q24hr - Follow up on urine culture - Follow up on blood culture x2 - Will consult PT/OT - Fall precautions - Will also check TSH in am Hyponatremia - Euvolemic - will obtain urine na/creatinine/chloride - NS at 50cchr after - Repeat BMP in am Diabetes mellitus - Sliding scale insulin - Qachs checks - Diabetic diet COPD w/o exacerbation - No respiratory distress or hypoxia on arrival - Stable continue home regimen Hypertension - Verify home meds Dyslipidemia - Verify home meds DVT pox - SCDS - Lovenox 40 mg SQ daily [place] Generalized weakness. Probably due to UTI and hyponatremia. Associated generalized deconditioning and debilitated. Case management reports that the patient refused custodial placement because she has [id number] co-pays. N ow the case management is going to work on home health care arrangements. Continue PT OT. UTI. Rocephin treatment is complete. Currently asymptomatic Hyponatremia. Could be from fluid overload. Urine testing was not done due to incontinence. The work-up can be completed in outpatient settings. Will defer to the PCP Hospital history of CHF. Fluid overload is possible. However there is no evidence of CHF exacerbation. Will resume home medications including her furosemide, lisinopril. ASA 81 mg Hypertension. Well-controlled. Continue current management. Diabetes. I will stop her pioglitazone. We will continue adjusting her other medications. Continue insulin sliding scale. DVT prophylaxis. Lovenox. The plan of care was discussed with the patient. She verbalized understanding and agreement. Attestations Medical Necessity Statement*: Discharge planning. Will DC as soon as it is complete. Coding Level of Care Code Acute Rate Marker for Chg Fwd Diagnoses Acute UTI N39.0 Weakness R53.1 Hyponatremia E87.1
--- NOTE | 2020-06-04 15:24 | P.DS_ITS ---
Discharge Providers Date of Admission: 05/28/20 02:49 Date of Discharge: June 04, 2020 Attending Provider at Admission: Donato Turcios Attending Provider at Discharge: Damien Cohen Primary Care Provider: RERE Robles Diagnoses at Discharge Discharge Diagnosis (1) Acute UTI: Status: Acute (2) Weakness: Status: Acute (3) Hyponatremia: Status: Acute Reason for Visit Reason for Visit: WEAK X 2 DAYS Hospital Course Hospital Course The patient remained in the hospital for discharge planning. Unfortunately her current insurance requires co-pay for [place] [facility] which the patient unable or is not willing to pay. She decided to go home with home health care. Case management will help her with these arrangements. The patient states that she is safe to go home. She has her and her son at home to help her. She denies any active complaints today. Eager to go home. Discharge diagnoses and problem list Generalized deconditioning and debilitated state, acute on chronic. Probably due to UTI and hyponatremia. Improved. UTI. Rocephin treatment is complete. Currently asymptomatic Hyponatremia. Currently resolved. Could be from fluid overload. Urine testing was not done due to incontinence. The work-up can be completed in outpatient settings. Will defer to the PCP Hospital history of CHF. Fluid overload is possible. However there is no evidence of CHF exacerbation. Will resume home medications including her furosemide, lisinopril. Continue ASA 81 mg Hypertension. Well-controlled. Continue current management. Diabetes. I will stop her pioglitazone, and continue the rest of the medications. DVT prophylaxis. Received Lovenox. Constipation. Resolved. Being discharged on docusate. Physical Exam Narrative: EXAM NARRATIVE: Awake alert oriented. No acute distress. Mood and affect are appropriate. Responses are adequate. Skin is warm and dry. Moist mucous membranes. Neck supple. No JVD Lungs are clear to auscultation bilaterally. No respiratory distress Heart S1, S2, regular Abdomen soft, nontender, bowel sounds are present Extremities trace edema. No cyanosis no calf tenderness bilaterally Neuro examination is nonfocal. Normal speech. No facial asymmetry. Discharge Data Data Completed and Pending: Completed Studies During Hospitalization Category Date Time Status CT head wo con* 7 0450 Urgent Cat Scan 05/28/20 01:19 Completed XR chest 1V russell ble [id number] Stat Exams 05/28/20 00:13 Completed CV echo complete* [id number] Routine Ultrasound 05/28/20 08:47 Completed Pending at discharge Category Date Time Status Osmolality Urine Routine Lab 05/28/20 08:47 Uncollected Urine Random Sodi um Routine Lab 05/28/20 08:47 Uncollected Labs from last 24 hours 06/04/20 06/04/20 06/04/20 10:39 06:27 05:30 WBC RBC Hgb Hct MCV MCH MCHC RDW Plt Count MPV Neut % (Auto) Lymph % (Auto) [place] % (Auto) Eos % (Auto) Baso % (Auto) Neut # (Auto) Lymph # (Auto) [place] # (Auto) Eos # (Auto) Baso # (Auto) Nucleated RBC % (a uto) Nucleated RBCs # Sodium 133 L Potassium 4.6 Chloride 95 L Carbon Dioxide 31 H Anion Gap 11.6 BUN 18 Creatinine 0.6 GFR Calculation Not Reportable Glucose 163 H POC Glucose 291 H 163 H Calcium 8.6 Phosphorus 4.1 Magnesium Albumin 3.2 L 06/04/20 06/04/20 06/03/20 05:30 05:30 20:13 WBC 11.4 H RBC 3.73 L Hgb 11.1 L Hct 35.0 L MCV 93.8 MCH 29.8 MCHC 31.7 RDW 14.3 Plt Count 303 MPV 8.9 Neut % (Auto) 41.6 Lymph % (Auto) 45.1 [place] % (Auto) 9.6 Eos % (Auto) 2.3 Baso % (Auto) 1.0 Neut # (Auto) 4.75 Lymph # (Auto) 5.2 H [place] # (Auto) 1.1 H Eos # (Auto) 0.3 Baso # (Auto) 0.1 Nucleated RBC % (a uto) 0 Nucleated RBCs # 0.0 Sodium Potassium Chloride Carbon Dioxide Anion Gap BUN Creatinine GFR Calculation Glucose POC Glucose 258 H Calcium Phosphorus Magnesium 2.0 Albumin 06/03/20 17:06 WBC RBC Hgb Hct MCV MCH MCHC RDW Plt Count MPV Neut % (Auto) Lymph % (Auto) [place] % (Auto) Eos % (Auto) Baso % (Auto) Neut # (Auto) Lymph # (Auto) [place] # (Auto) Eos # (Auto) Baso # (Auto) Nucleated RBC % (a uto) Nucleated RBCs # Sodium Potassium Chloride Carbon Dioxide Anion Gap BUN Creatinine GFR Calculation Glucose POC Glucose 226 H Calcium Phosphorus Magnesium Albumin Vitals: Last Vital Signs Temp 97.1 F L 06/04/20 14:52 Pulse 95 06/04/20 14:52 Resp 17 06/04/20 14:52 BP 102/61 06/04/20 14:52 Pulse Ox 95 06/04/20 14:52 Discharge Plan Discharge Patient Disposition: Home Health Service Condition: Stable Prescriptions: New aspirin 81 mg Tablet,Delayed Release (Dr/Ec) 81 mg PO DAILY Qty: 30 RF: 0 docusate sodium 100 mg capsule 100 mg PO BID Qty: 30 RF: 0 Continued atorvastatin 20 mg tablet 20 mg PO DAILY RF: 0 risperidone 0.25 mg tablet 0.25 mg PO BID RF: 0 tamsulosin 0.4 mg capsule 0.4 mg PO DAILY RF: 0 metformin 1,000 mg tablet 1,000 mg PO BID RF: 0 glimepiride 4 mg tablet 4 mg PO BID RF: 0 gabapentin 300 mg capsule 300 mg PO TID RF: 0 lisinopril 5 mg tablet 5 mg PO DAILY RF: 0 furosemide 20 mg tablet 20 mg PO DAILY RF: 0 Nystop 100,000 unit/gram powder 1 applic TOPICAL DAILY RF: 0 albuterol sulfate 90 mcg/actuation HFA aerosol inhaler 2 puff INHALATION DAILY PRN (Reason: Shortness Of Breath) RF: 0 Discontinued meloxicam 7.5 mg tablet 7.5 mg PO BID RF: 0 pioglitazone 30 mg tablet 30 mg PO DAILY RF: 0 cefdinir 300 mg capsule 300 mg PO BID RF: 0 Discharge Orders: Discharge Order (Routine); Ordered 06/04/20 Ordered By: Damien Cohen Other Ambulatory Orders: Basic Metabolic Panel (Routine) Timeframe: 1 Week Facility: [facility] - Location: Lab - Main Lab Ordered By: Damien Cohen Referrals: Farida Ford FNP [Primary Care Provider] - 06/11/20 11:00 am Discharge Diet: Usual diet Discharge Activity: Increase activity as tolerated Patient Instructions: Aspirin (By mouth), Laxative, Stool Softeners (By mouth), Urinary Tract Infection in Women (GEN), Weakness (Generalized) Activity Restrictions/Additional Instructions: Please come back to emergency room if you develop any new complaints, any new weakness, problems with urination, fever or chills, nausea or vomiting, chest pain, shortness of breath, cough, palpitation, confusion or any other new symptoms. Discharge Attestations Time Spent in Discharge Care*: greater than 30 min Quality Metrics Clinical Quality Measures During this hospital stay, did patient experience: None Coding Level of Care Code Acute Chg [facility] note Diagnoses Acute UTI N39.0 Weakness R53.1 Hyponatremia E87.1
[2020-06-04 16:20] LABS: Glucose Point of Care 166 mg/dL (70-110)
--- NOTE | 2020-06-12 08:38 | PC.SOCIAL ---
notified this nurse that they are not in network with the new BCBS plan that patient switched to no 06/04/2020. Provided education to RN CALIXTO that was coordinating care at [place]. Called patient and she may be a little confused but thought she had [facility] under a previous BCBS plan. This nurse explained that there are different [place] BCBS plans etc. Called and they have serviced her under the previous [employer] not a BCBS plan. indicates she is already working on transferring the HH to either [facility] or [place] who are in network and she will give the patient a call soon to update her.
== END 2020-06-04 17:26 | disposition home health service (06) ==
LOC: ER 05-28 02:38 → MEDSURG 05-28 05:57
PROVIDERS: Emergency Medicine; Admitting Provider Hospitalist; Emergency Provider Nurse Practitioner Family; PCP Nurse Practitioner Family; Visit Provider Internal Medicine
DX: N39.0 Urinary tract infection, site not specified (principal); R53.1 Weakness; E87.1 Hypo-osmolality and hyponatremia; E11.9 Type 2 diabetes mellitus without complications; J44.9 Chronic obstructive pulmonary disease, unspecified; I10 Essential (primary) hypertension; E78.5 Hyperlipidemia, unspecified; K59.00 Constipation, unspecified; Z79.84 Long term (current) use of oral hypoglycemic drugs
CPT/HCPCS: 36415; 36416; 70450; 71045; 80053; 80061; 80069; 81001; 82550; 82962; 83036; 83605; 83735; 83880; 83930; 84100; 84443; 84484; 85025; 87040; 87086; 93005; 93306; 94640; 96365; 96367; 96372; 97110; 97116; 97161; 97166; 97530; 97535; 99291; G0378; J0696; J1650; J1815; J3535; J7030

== ENCOUNTER 2020-06-29 14:17 | Outpatient (CLI) | payer MEDICARE, SELFPAY ==
--- NOTE | 2020-06-29 14:26 | MM_ITS ---
WS: [id number] BILATERAL SCREENING DIGITAL MAMMOGRAM WITH CAD HISTORY: SCREENING COMPARISON: 09/25/2018 and 09/11/2017 Bilateral CC and MLO views submitted. Computer aided detection analyzed. Breast composition: There are scattered areas of fibroglandular density. No suspicious masses, microc alcifications or architectural distortion. Difficulty positioning the patient due to significant immo bility. There are no suspicious masses identified but the entire breast have not been imaged especial ly within the lateral projection. MM/[place] [id number] IMPRESSION: BI-RADS: 2-Benign FOLLOW UP: 1 Year Follow-up
== END 2020-06-29 14:18 | disposition home or self-care (01) ==
PROVIDERS: PCP Nurse Practitioner Family; Visit Provider Nurse Practitioner Family
DX: Z12.31 Encounter for screening mammogram for malignant neoplasm of breast (principal)
CPT/HCPCS: 77067

== ENCOUNTER 2021-10-09 19:04 | Inpatient (IN) | payer MEDICARE, MEDICAID, SELFPAY ==
[2021-10-09 19:19] VITALS: BP 149/76; PULSE 115; RESP 18; TEMP 36.6; O2SAT 96; BMI 32.5
--- NOTE | 2021-10-09 19:24 | W.ED.GENADLT ---
HPI - General Adult General: Chief complaint: General Medical Stated complaint: WELL BEING CHECK Time Seen by Provider: 10/09/21 19:24 History of Present Illness: Ms. Keyes is a 75-year-old lady with history of hypertension, hyperlipidemia, diabetes, COPD who presents to the emergency department for generalized weakness. She apparently was at a assisted facility however checked her self out 3 days ago and since that time has had difficulty at home. She agrees that she is unable to perform ADLs. She denies other specific changes. No other specific changes in health, exacerbating, or alleviating factors identified. Onset (ago): day(s) Severity: severe Associated symptoms: Reports weakness Review of Systems General: Reports: 10 or more systems reviewed and unremarkable except in HPI and below PFSH ED PFSH: Medical History COPD (chronic obstructive pulmonary disease) Diabetes Surgical History H/O: hysterectomy History of appendectomy History of carpal tunnel release History of tonsillectomy Total knee replacement status Family History Father Diabetes Other CAD (coronary artery disease) Social History Alcohol intake: never Lives independently: Yes Household members: spouse Marital status: Physical Exam Const: COMMON NORMALS: patient oriented x3 and alert GENERAL APPEARANCE: cooperative and well developed HENMT: COMMON NORMALS: normocephalic and atraumatic HEAD & SCALP: normocephalic and atraumatic Eye: COMMON NORMALS: conjunctivae normal CONJUNCTIVA: Yes conjunctivae normal SCLERA: sclerae normal Neck/C-Spine: COMMON NORMALS: supple GENERAL: Yes trachea midline Resp: COMMON NORMALS: normal respiratory effort EFFORT & INSPECTION: Yes able to speak in complete sentences Cardio: COMMON NORMALS: regular rate and regular rhythm RATE: regular rate RHYTHM: regular rhythm GI: COMMON NORMALS: Soft to palpation PALPATION: Yes Soft to palpation and No Tenderness to palpation present (GI) PERCUSSION: normal to percussion Extremity: GENERAL: Yes normal exam except as noted and No edema Neuro: COMMON NORMALS: patient oriented x3, CN's II-XII intact bilaterally, moves all extremities, no focal motor deficits and no sensory deficits noted SENSORIUM/ORIENTATION: Yes alert and No Orientation impaired Psych: COMMON NORMALS: mental status grossly normal and Normal thought process present THOUGHT PROCESS: Normal thought process present Course Vital Signs: Vital signs: Vital Signs Temperature 99.4 F 10/19/21 00:00 Pulse Rate 91 10/19/21 00:00 Respiratory Rate 15 10/19/21 00:00 Blood Pressure 180/75 10/19/21 00:00 Pulse Oximetry 94 10/19/21 00:00 Oxygen Delivery Me thod 10/18/21 15:16 MDM - General Adult Medical Decision Making 75-year-old lady presenting with generalized weakness after checking herself out from group home. She has essentially been unable to perform ADLs for 3days or get out of of chair. Labs notable for mild leukocytosis, normal hemoglobin. Metabolic evidence with some evidence of dehydration. Delta troponin negative. Urinalysis pending. Chest x-ray without lobar consolidation or pneumothorax. CT without acute intracranial pathology though with significant atrophy and senescent changes noted. No focal deficits on exam. Admitted for further management. Medical Records I reviewed the patient's medical records. Lab Data I reviewed the patient's lab results. : 10/17/21 05:17 10/17/21 05:[address] 10/09/21 19:32 IMPRESSION: 1. There is diffuse cerebral atrophy. Ventricles are prominent out of proportion to the sulci, and a degree of overlying normal pressure hydrocephalus cannot be excluded. 2. There are senescent changes of the brain as described above. No evidence for large acute ischemic infarction or acute intracranial injury. Chest X-Ray 10/15/21 14:12 IMPRESSION: PICC line placement as above. Laboratory Results WBC 8.9 10^3/uL (4.0-10.0) 10/11/21 04:20 RBC 3.45 10^6/uL (4.1-5.3) L 10/11/21 04:20 Hgb 9.9 g/dL (11.5-15.3) L 10/11/21 04:20 Hct 30.3 % (37.0-47.0) L 10/11/21 04:20 MCV 87.8 fl (81-99) 10/11/21 04:20 MCH 28.7 pg (28.0-34.0) 10/11/21 04:20 MCHC 32.7 g/dL (30.0-36.0) 10/11/21 04:20 RDW 14.0 % (12.1-15.1) 10/11/21 04:20 Plt Count 256 10^3/cmm (130-400) 10/11/21 04:20 MPV 9.5 fL (7.4-10.4) 10/11/21 04:20 Neut % (Auto) 51.9 % 10/11/21 04:20 Lymph % (Auto) 33.2 % 10/11/21 04:20 [place] % (Auto) 9.1 % 10/11/21 04:20 Eos % (Auto) 4.3 % 10/11/21 04:20 Baso % (Auto) 0.8 % 10/11/21 04:20 Neut # (Auto) 4.63 10^3/uL (1.8-7.7) 10/11/21 04:20 Lymph # (Auto) 3.0 10^3/uL (0.8-4.8) 10/11/21 04:20 [place] # (Auto) 0.8 10^3/uL (0.2-0.9) 10/11/21 04:20 Eos # (Auto) 0.4 10^3/uL (0.0-0.8) 10/11/21 04:20 Baso # (Auto) 0.1 10^3/uL (0.0-0.1) 10/11/21 04:20 Nucleated RBC % (auto) 0 % 10/11/21 04:20 Nucleated RBCs # 0.0 /100WBC 10/11/21 04:20 Sodium 134 mmol/L (136-145) L 10/11/21 04:20 Potassium 4.1 mmol/L (3.5-5.1) 10/11/21 04:20 Chloride 96 mmol/L (98-107) L 10/11/21 04:20 Carbon Dioxide 24 mmol/L (22-29) 10/11/21 04:20 Anion Gap 18.1 (5-19) 10/11/21 04:20 BUN 12 mg/dL (8-23) 10/11/21 04:20 Creatinine 0.4 mg/dL (0.5-0.9) L 10/11/21 04:20 GFR Calculation Not Reportable 10/11/21 04:20 Glucose 186 mg/dL (65-115) H 10/11/21 04:20 POC Glucose 249 mg/dL (70-110) H 10/11/21 12:07 Estimat Average Glucose 160 10/09/21 20:35 Hemoglobin A1c 7.2 % (4.0-6.0) H 10/09/21 20:35 Serum Osmolality 274 mOsm/kg (278-305) L 10/09/21 20:35 Calculated Osmolality 283 mOsm/kg (285-295) L 10/11/21 04:20 Lactic Acid 1.1 mmol/L (0.5-2.2) 10/10/21 01:00 Calcium 8.7 mg/dL (8.5-10.5) 10/11/21 04:20 Iron 44 ug/dL (37-145) 10/11/21 04:20 TIBC 234 mcg/dl 10/11/21 04:20 % Saturation 18.8 % (20-50) L 10/11/21 04:20 Unsat Iron Binding 190 ug/dL (112-347) 10/11/21 04:20 Total Bilirubin 0.4 mg/dL (0.15-1.2) 10/11/21 04:20 AST 15 U/L (0-32) 10/11/21 04:20 ALT 10 U/L (0-33) 10/11/21 04:20 Alkaline Phosphatase 68 IU/L (35-105) 10/11/21 04:20 Troponin T Baseline 15 ng/L (0-10) H 10/09/21 20:35 Troponin T 120 Minute 14.77 ng/L (0-10) H 10/09/21 22:35 Delta Troponin T -0.23 ABS# (0-10) L 10/09/21 22:35 Troponin T Hi Sens 6Hr 16.30 ng/L (0-10) H 10/10/21 01:00 Troponin T Hi Sens 6Hr Delta 1.30 ng/L (0-12) 10/10/21 01:00 NT-Pro-B Natriuret Pep 978 pg/mL (0-450) H 10/09/21 20:35 Total Protein 5.6 g/dL (6.6-8.7) L 10/11/21 04:20 Albumin 3.2 g/dL (3.5-5.2) L 10/11/21 04:20 Globulin 2.4 g/dL (1.3-4.6) 10/11/21 04:20 Procalcitonin 0.05 ng/mL (0-0.5) 10/11/21 04:20 TSH 1.81 uIU/mL (0.27-4.20) 10/10/21 01:00 Urine Color Yellow (Yellow) 10/10/21 00:45 Urine Appearance Cloudy (CLEAR) 10/10/21 00:45 Urine pH 5 (5-7) 10/10/21 00:45 Ur Specific [place] 1.020 (1.005-1.030) 10/10/21 00:45 Urine Protein 1+ (Negative) H 10/10/21 00:45 Urine Glucose (UA) 4+ (Normal) H 10/10/21 00:45 Urine Ketones 1+ (Negative) H 10/10/21 00:45 Urine Blood 3+ (Negative) H 10/10/21 00:45 Urine Nitrate Negative (Negative) 10/10/21 00:45 Urine Bilirubin Neg (Negative) 10/10/21 00:45 Urine Urobilinogen Neg mg/dL (Negative) 10/10/21 00:45 Ur Leukocyte Esterase 2+ (Negative) H 10/10/21 00:45 Urine RBC 10-15 /hpf (0-2) H 10/10/21 00:45 Urine WBC >100 /hpf (0-5) H 10/10/21 00:45 Ur Squamous Epith Cells 0-4 /hpf (0-5) H 10/10/21 00:45 Amorphous Sediment Not Reportable 10/10/21 00:45 Urine Bacteria 3+ /hpf (NONE) H 10/10/21 00:45 Urine Osmolality 559 mOsm/kg (50-1200) 10/10/21 00:45 Ur Random Sodium 71 mmol/L 10/10/21 00:45 Discharge Plan Discharge Patient Disposition: Placed in Observation Admit Provider: Remedios Sauceda Clinical Impression: Weakness, Dehydration, Deficit in activities of daily living (ADL), Leukocytosis, Normocytic anemia Coding Level of Care Code ED Hyster Machine Operator for Donna Tuttle
--- NOTE | 2021-10-09 19:32 | CTR_ITS ---
PROCEDURE INFORMATION: Exam: CT Head Without Contrast Exam date and time: 10/09/2021 7:55 PM Age: 75 years old Clinical indication: Altered mental status/memory loss and other: Confusion; Additional info: AMS TECHNIQUE: Imaging protocol: Computed tomography of the head without contrast. Radiation optimization: All CT scans at this facility use at least one of these dose optimization techniques: automated exposure control; mA and/or kV adjustment per patient size (includes targeted exams where dose is matched to clinical indication); or iterative reconstruction. COMPARISON: CT head wo con* [id number] 05/28/2020 1:49 AM RADIATION DOSE METRICS: Total DLP (mGy-cm): 1142.58 FINDINGS: Brain: There is diffuse cerebral atrophy present, consistent with this patient's age. Periventricular and subcortical white matter low densities are present which at this age likely represent microvascular ischemic change. No evidence for acute intracranial hemorrhage. Calcified plaque is present within the intracranial vasculature. Cerebral ventricles: The ventricles are prominent out of proportion to the sulci. Paranasal sinuses: Visualized sinuses are unremarkable. No fluid levels. Mastoid air cells: Visualized mastoid air cells are well aerated. Bones/joints: Unremarkable. No acute fracture. Soft tissues: Unremarkable. Other findings: No evidence for large acute ischemic infarction. Please note acute ischemia can be occult by head CT. CT/CT head wo con* [id number] IMPRESSION: 1. There is diffuse cerebral atrophy. Ventricles are prominent out of proportion to the sulci, and a degree of overlying normal pressure hydrocephalus cannot be excluded. 2. There are senescent changes of the brain as described above. No evidence for large acute ischemic infarction or acute intracranial injury.
--- NOTE | 2021-10-09 19:32 | XRR_ITS ---
PROCEDURE INFORMATION: Exam: XR Chest Exam date and time: 10/09/2021 7:40 PM Age: 75 years old Clinical indication: Injury or trauma; Fall; Blunt trauma (contusions or hematomas); Additional info: AMS, falls TECHNIQUE: Imaging protocol: Radiologic exam of the chest. Views: 1 view. COMPARISON: CR XR chest 1V portable [id number] 05/28/2020 12:33 AM FINDINGS: Lungs: Unremarkable. No consolidation. Pleural spaces: Unremarkable. No pleural effusion. No pneumothorax. Heart/Mediastinum: Unremarkable. No cardiomegaly. Vasculature: There is calcified plaque in the aortic arch similar to the prior study. Bones/joints: Unremarkable. XR/XR chest 1V portable [id number] IMPRESSION: No evidence for acute cardiopulmonary disease.
[2021-10-09 20:41] LABS: Basophils # 0.1 10^3/uL (0.0-0.1); Basophils % 0.4 %; Eosinophils # 0.2 10^3/uL (0.0-0.8); Eosinophils % 1.9 %; Hematocrit 31.9 % (37.0-47.0); Hemoglobin 10.7 g/dL (11.5-15.3); Lymphocytes # 2.7 10^3/uL (0.8-4.8); Lymphocytes % 21.6 %; Mean Corpuscular HGB Conc 33.5 g/dL (30.0-36.0); Mean Corpuscular Hemoglobin 28.8 pg (28.0-34.0); Mean Platelet Volume 8.8 fL (7.4-10.4); Monocytes # 1.1 10^3/uL (0.2-0.9); Monocytes % 8.5 %; Neutrophils % 67.2 %; Nucleated Red Blood Cells % 0 %; Platelet Count 313 10^3/cmm (130-400); Red Blood Count 3.71 10^6/uL (4.1-5.3); Red Cell Distribution Width 13.7 % (12.1-15.1); White Blood Count 12.5 10^3/uL (4.0-10.0)
[2021-10-09 21:13] LABS: Alanine Aminotransferase 11 U/L (0-33); Alkaline Phosphatase 67 IU/L (35-105); Anion Gap 15.8 (5-19); Aspartate Amino Transferase 14 U/L (0-32); Blood Urea Nitrogen 13 mg/dL (8-23); Calcium 9.5 mg/dL (8.5-10.5); Carbon Dioxide 26 mmol/L (22-29); Chloride 91 mmol/L (98-107); Creatinine Clr Calc Pharmacy 64.5477; Globulin 2.5 g/dL (1.3-4.6); Glucose 230 mg/dL (65-115); NT Pro B Type Natriuretic Pept 978 pg/mL (0-450); Osmolality Calculated 275 mOsm/kg (285-295); Potassium 3.8 mmol/L (3.5-5.1); Sodium 129 mmol/L (136-145); Thyroid Stimulating Hormone 1.35 uIU/mL (0.27-4.20); Total Bilirubin 0.5 mg/dL (0.15-1.2); Total Protein 6.5 g/dL (6.6-8.7)
[2021-10-09 21:19] LABS: Troponin(5th) Baseline 15 ng/L (0-10)
[2021-10-09 22:27] VITALS: BP 117/56; PULSE 111; O2SAT 96
[2021-10-09 23:36] LABS: Troponin 5 2HR 14.77 ng/L (0-10)
[2021-10-09 23:38] LABS: Troponin 5 2HR Delta -0.23 ABS# (0-10)
--- NOTE | 2021-10-09 23:46 | P.HP_ITS ---
Providers/Chief Complaint Admitting Physician: Remedios Sauceda MD Primary Care Provider: RERE Robles Chief Complaint: WELL BEING CHECK History of Present Illness Isamar Keyes is a 75 year old female with past medical history of COPD, diabetes, hyperlipidemia, hypertension presented to the hospital today for generalized weakness. She states that her son does not take care of her at home and she needs help. However when I asked her if she would like to go to a custodial facility she stated no she would like to go back home to her son. She was also had a custodial facility recently however she took her self off 2 days ago AGAINST MEDICAL ADVICE because she states she wanted to go home. He states she has trouble at home to perform her ADLs. ER physician also told me that apparently patient was found on the floor and that she may have a foreign from her chair. She is incontinent of urine when he was found in her urine and feces. Patient's RN noted that patient wants to go to a specific custodial facility at this time. Patient has also ripped out her IV since being in the ER because she stated that it was too tight on her. She denies chest pain, shortness of breath, abdominal pain, nausea, vomiting, constipation, diarrhea at this time. Patient is a very poor historian. ED course: This 117/50 RR 18 , pulse 100 On arrival to ER, afebrile, saturating 96% on room air. Chest x-ray did not show acute abnormality. Neck CT head no acute intracranial abnormality. Does have some chronic findings. Medications/Allergies Home Medications Medication Instructions Recorded Confirmed Last Taken Type albuterol sulfate 90 mcg/actuation 2 puff inhalation DAILY PRN 05/28/20 05/28/20 Unknown History aerosol inhaler Shortness Of Breath atorvastatin 20 mg tablet 20 mg PO DAILY 05/28/20 05/28/20 Unknown History furosemide 20 mg tablet 20 mg PO DAILY 05/28/20 05/28/20 Unknown History gabapentin 300 mg capsule 300 mg PO TID 05/28/20 05/28/20 Unknown History glimepiride 4 mg tablet 4 mg PO BID 05/28/20 05/28/20 Unknown History lisinopril 5 mg tablet 5 mg PO DAILY 05/28/20 05/28/20 Unknown History metformin 1,000 mg tablet 1,000 mg PO BID 05/28/20 05/28/20 Unknown History nystatin 100,000 unit/gram topical 1 applic topical DAILY 05/28/20 05/28/20 Unknown History powder (Nystop) risperidone 0.25 mg tablet 0.25 mg PO BID 05/28/20 05/28/20 Unknown History tamsulosin 0.4 mg capsule 0.4 mg PO DAILY 05/28/20 05/28/20 Unknown History aspirin 81 mg tablet,delayed 81 mg PO DAILY #30 tabs 06/02/20 Unknown Rx release docusate sodium 100 mg capsule 100 mg PO BID #30 caps 06/02/20 Unknown Rx Allergies Allergy/AdvReac Type Severity Reaction Status Date / Time No Known Allergies Allergy Verified 05/27/20 21:07 PFSH Acute PFSH: Medical History (Updated 10/10/21 @ 00:03 by Remedios Sauceda MD) COPD (chronic obstructive pulmonary disease) Diabetes Surgical History H/O: hysterectomy History of appendectomy History of carpal tunnel release History of tonsillectomy Total knee replacement status Family History Father Diabetes Other CAD (coronary artery disease) Social History Alcohol intake: never Lives independently: Yes Household members: spouse Marital status: Vitals/I&O/Wt Last Vital Signs Temp 97.9 F 10/09/21 19:19 Pulse 111 H 10/09/21 22:27 Resp 18 10/09/21 19:19 BP 117/56 10/09/21 22:27 Pulse Ox 96 10/09/21 22:27 O2 Del Method 10/09/21 22:27 Weight last 48 hrs Weight 86.183 kg Physical Exam Narrative: General: Alert oriented x3, patient seen laying in bed appearing comfortable at this time, HEENT: Normocephalic, atraumatic, EOMI Cardio: RRR, normal S1-S2, no murmurs Respiratory: CTA B/L GI: Abdomen soft, nontender, bowel sounds + Extremities: Trace b/l LE edema Data : 10/09/21 20:35 10/09/21 20:35 A&P Assessment and plan (1) Dehydration: Status: Acute (2) Deficit in activities of daily living (ADL): Status: Acute (3) Leukocytosis: Status: Acute (4) Normocytic anemia: Status: Acute (5) Weakness: Status: Acute (6) Hyponatremia: Status: Acute (7) COPD (chronic obstructive pulmonary disease): Status: Acute Plan #Failure to thrive #Acute on chronic hyponatremia #COPD, diabetes, hyperlipidemia, hypertension #Leukocytosis ? Continue home medications - Cardiac diet - Sliding scale insulin -Check urine studies, serum, urine osmolality ?Leukocytosis possible reactive. Will check urinalysis and culture - Consult case management for placement - Pt status post 1L NS bolus in ER. Will recheck labs in AM. Full code DVT prophylaxis: Heparin subcu Attestations Medical Necessity Statement*: Observation for setting up placement. Coding Level of Care Code Acute Project Engineer [employer]s for Chg Fwd Diagnoses Dehydration E86.0 Deficit in activities of daily living (ADL) Z78.9 Leukocytosis D72.829 Normocytic anemia D64.9 Weakness R53.1 Hyponatremia E87.1 COPD (chronic obstructive pulmonary disease) J44.9
[2021-10-10] VITALS (8 sets, daily range): BP systolic 118–150; BP diastolic 55–83; PULSE 100–114; RESP 14–20; TEMP 36.4–37.1; O2SAT 91–96
[2021-10-10] MEDS: sodium chloride 0.9% 1,000 ML 999 ML IV (00:55)
[2021-10-10 01:26] LABS: Lactic Sepsis W/Reflex 1.1 mmol/L (0.5-2.2)
[2021-10-10 01:35] LABS: Bilirubin Urine Neg (Negative); Blood Urine 3+ (Negative); Glucose Urine UA 4+ (Normal); Ketones Urine 1+ (Negative); Nitrate Urine Negative (Negative); Protein Urine 1+ (Negative); Urine Appearance Cloudy (CLEAR); Urine Color Yellow (Yellow); pH Urine 5 (5-7)
[2021-10-10 01:36] LABS: Add Urine Microscopic? YES; Leukocyte Esterase Urine 2+ (Negative); Urobilinogen Urine Neg (Negative)
[2021-10-10 01:37] LABS: Procalcitonin 0.05 ng/mL (0-0.5)
[2021-10-10 01:38] LABS: Urine Random Sodium 71 mmol/L
[2021-10-10 01:39] LABS: Squamous Epithelial Cell Urine 0-4 /hpf (0-5); WBC Urine >100 /hpf (0-5)
[2021-10-10 01:40] LABS: Add Urine Culture? No; Bacteria Urine 3+ /hpf
[2021-10-10 02:47] LABS: Thyroid Stimulating Hormone 1.81 uIU/mL (0.27-4.20)
[2021-10-10 02:51] LABS: Estmated Average Glucose 160; Hemoglobin A1C 7.2 % (4.0-6.0)
[2021-10-10] MEDS: cefTRIAXone 1,000 MG in sodium chloride 0.9% (plus) 50 ML 100 MG IV (03:25)
[2021-10-10] MEDS: heparin 5,000 unit/mL INJ 1 mL 5000 UNIT SUBCUT ×2 (03:26→15:21)
[2021-10-10] MEDS: risperiDONE 0.25 mg Tablet PO ×2 (08:54→17:15)
[2021-10-10] MEDS: gabapentin 300 mg Capsule PO ×3 (08:54→20:49)
[2021-10-10] MEDS: tamsulosin 0.4 mg Capsule PO (08:54)
[2021-10-10] MEDS: atorvastatin 40 mg Tablet 20 MG PO (08:54)
[2021-10-10] MEDS: docusate sodium 100 mg Capsule PO ×2 (08:54→17:15)
[2021-10-10] MEDS: aspirin 81 mg EC Tablet PO (08:54)
--- NOTE | 2021-10-10 11:58 | PC.NURSE ---
RAZIA HAMILTON CALLED AND ASKED FOR AN UPDATE ON THE PATIENT AND STATED SHE WAS DPOA. THIS NURSE CANNOT FIND RAZIA ON ANY PAPERWORK INCLUDING HER PHI. THIS NURSE ASKED PATIENT IF WE COULD UPDATE RAZIA AND PATIENT STATED WE COULD. THIS NURSE ASKED RAZIA TO BRING DPOA PAPERWORK WHEN SHE COMES TO VISIT. RAZIA ALSO ASKED IF PATIENT COULD BE SENT TO [facility]. CASE MANAGEMENT UPDATED. RAZIA [phone] JARET [phone]
--- NOTE | 2021-10-10 16:18 | P.PN_ITS ---
Subjective Subjective: Patient was seen and examined this morning, resting comfortably, states that he do not want to go to [facility]. Due to work with physical therapy. Her other Vitals and labs have been reviewed. Medications: Medication Review Details: Generic Name Dose Route Start Last Admin Trade Name Mitchell PRN Reason Stop Dose Admin Aspirin 81 mg 10/10/21 09:00 10/10/21 08:54 Aspirin 81 Mg Ec Tablet PO 81 mg DAILY DARIELA Administration Atorvastatin Calci um 20 mg 10/10/21 09:00 10/10/21 08:54 Atorvastatin 40 Mg Tablet PO 20 mg DAILY DARIELA Administration Docusate Sodium 100 mg 10/10/21 09:00 10/10/21 08:54 Docusate Sodium 100 Mg Capsule PO 100 mg BID DARIELA Administration Gabapentin 300 mg 10/10/21 09:00 10/10/21 15:21 Gabapentin 300 M g Capsule PO 300 mg TID DARIELA Administration Heparin Sodium (Po rcine) 5,000 unit 10/10/21 01:57 10/10/21 15:21 Heparin 5,000 Un it/Ml Inj 1 Ml SUBCUT 5,000 unit Q12H DARIELA Administration Ceftriaxone Sodium 1,000 mg/ 50 mls @ 100 mls/ hr 10/10/21 02:15 10/10/21 07:20 Sodium Chloride IV Infused Q24H DARIELA Infusion Protocol Risperidone 0.25 mg 10/10/21 09:00 10/10/21 08:54 Risperidone 0.25 Mg Tablet PO 0.25 mg BID DARIELA Administration Tamsulosin HCl 0.4 mg 10/10/21 09:00 10/10/21 08:54 Tamsulosin 0.4 M g Capsule PO 0.4 mg DAILY DARIELA Administration Vitals/I&O/Wt Last Vital Signs Temp 97.6 F 10/10/21 15:58 Pulse 102 H 10/10/21 15:58 Resp 18 10/10/21 15:58 BP 149/83 10/10/21 15:58 Pulse Ox 94 10/10/21 15:58 O2 Del Method 10/10/21 15:58 10/10/21 10/10/21 10/10/21 06:59 14:59 22:59 Intake Total 1290 / 1290 Balance 1290 / 1290 Weight last 48 hrs Weight 86.183 kg Physical Exam Resp: COMMON NORMALS: normal respiratory effort, No retractions, No use of accessory muscles and clear to auscultation bilaterally EFFORT & INSPECTION: Yes symmetric chest movement AUSCULTATION: clear to auscultation bilaterally Cardio: COMMON NORMALS: regular rate, regular rhythm, S1 normal heart sound present, S2 normal heart sound present, No gallops present (Cardio), No murmurs present (Cardio), No rub (Cardio) and Peripheral pulses 2+ throughout RATE: regular rate RHYTHM: regular rhythm HEART SOUNDS: S1 normal heart sound present and S2 normal heart sound present PERIPHERAL PULSES: Peripheral pulses 2+ throughout GI: COMMON NORMALS: Normal to inspection, nondistended, normoactive bowel sounds present, Soft to palpation, non-tender, No hepatosplenomegaly present and no masses AUSCULTATION: Yes normoactive bowel sounds PALPATION: Yes Soft to palpation and Yes No hepatosplenomegaly present RECTAL EXAM: deferred Extremity: COMMON NORMALS: no clubbing, cyanosis or edema and no pedal edema Urinary Catheter Management: Darling: Cath Placed During This Visit: yes Reason for Continuing Indwelling Catheter: Acute Urinary Retention or Obstruction Urinary Catheter Date of Insertion: 10/10/21 Urinary Catheter Time of Insertion: 00:45 Data : 10/09/21 20:35 10/09/21 20:35 Micro: Microbiology 10/10/21 00:50 Blood Culture - Preliminary Blood SPECIMEN COLLECTED 10/10/21 01:00 Blood Culture - Preliminary Blood SPECIMEN COLLECTED A&P Assessment and plan (1) Dehydration: Status: Acute (2) Deficit in activities of daily living (ADL): Status: Acute (3) Leukocytosis: Status: Acute (4) Normocytic anemia: Status: Acute (5) Weakness: Status: Acute (6) Hyponatremia: Status: Acute (7) COPD (chronic obstructive pulmonary disease): Status: Acute Plan 75 year old female with past medical history of COPD, diabetes, hyperlipidemia, hypertension presented to the hospital today for generalized weakness and after fall at home,currently being managed for. Assessment : #UTI #Fall #Acute on chronic hyponatremia #COPD #Diabetes #Hypertension #Inability to take care of herself, need for Placement Plan : Follow Urine Culture Blood Culture SSI Continue Rocephin Monitor BMP Fall Precaution. Full code DVT prophylaxis: Heparin subcu Attestations Medical Necessity Statement*: Patient needs to be in hospital for the management of UTI. Coding Level of Care Code Acute Publications Writer for Donna Fwamerico Diagnoses Dehydration E86.0 Deficit in activities of daily living (ADL) Z78.9 Leukocytosis D72.829 Normocytic anemia D64.9 Weakness R53.1 Hyponatremia E87.1 COPD (chronic obstructive pulmonary disease) J44.9
--- NOTE | 2021-10-10 18:30 | PC.PHAR ---
unable to verify medications through [facility] - pt was discharged from facility - pt unable to verify - verified by last filled on ext med history
[2021-10-11] MEDS: cefTRIAXone 1,000 MG in sodium chloride 0.9% (plus) 50 ML 100 MG IV (02:00)
[2021-10-11] MEDS: heparin 5,000 unit/mL INJ 1 mL 5000 UNIT SUBCUT ×2 (02:07→14:41)
[2021-10-11 04:00] VITALS: BP 138/68; PULSE 92; RESP 16; TEMP 36.4; O2SAT 95
[2021-10-11 05:30] LABS: Basophils # 0.1 10^3/uL (0.0-0.1); Basophils % 0.8 %; Eosinophils # 0.4 10^3/uL (0.0-0.8); Eosinophils % 4.3 %; Hematocrit 30.3 % (37.0-47.0); Hemoglobin 9.9 g/dL (11.5-15.3); Lymphocytes % 33.2 %; Mean Corpuscular HGB Conc 32.7 g/dL (30.0-36.0); Mean Corpuscular Hemoglobin 28.7 pg (28.0-34.0); Mean Corpuscular Volume 87.8 fl (81-99); Mean Platelet Volume 9.5 fL (7.4-10.4); Monocytes # 0.8 10^3/uL (0.2-0.9); Monocytes % 9.1 %; Neutrophils # 4.63 10^3/uL (1.8-7.7); Neutrophils % 51.9 %; Nucleated Red Blood Cells % 0 %; Platelet Count 256 10^3/cmm (130-400); Red Blood Count 3.45 10^6/uL (4.1-5.3); White Blood Count 8.9 10^3/uL (4.0-10.0)
[2021-10-11 05:52] LABS: Alanine Aminotransferase 10 U/L (0-33); Albumin Level 3.2 g/dL (3.5-5.2); Alkaline Phosphatase 68 IU/L (35-105); Blood Urea Nitrogen 12 mg/dL (8-23); Calcium 8.7 mg/dL (8.5-10.5); Carbon Dioxide 24 mmol/L (22-29); Chloride 96 mmol/L (98-107); Globulin 2.4 g/dL (1.3-4.6); Glucose 186 mg/dL (65-115); Osmolality Calculated 283 mOsm/kg (285-295); Sodium 134 mmol/L (136-145); Total Bilirubin 0.4 mg/dL (0.15-1.2); Total Protein 5.6 g/dL (6.6-8.7)
[2021-10-11 05:53] LABS: Anion Gap 18.1 (5-19); Aspartate Amino Transferase 15 U/L (0-32); Creatinine Clr Calc Pharmacy 64.5477; Potassium 4.1 mmol/L (3.5-5.1)
[2021-10-11 08:00] VITALS: BP 147/74; PULSE 80; RESP 15; TEMP 36.6; O2SAT 91
[2021-10-11] MEDS: docusate sodium 100 mg Capsule PO ×2 (09:17→17:21)
[2021-10-11] MEDS: aspirin 81 mg EC Tablet PO (09:17)
[2021-10-11] MEDS: gabapentin 300 mg Capsule PO ×3 (09:17→20:46)
[2021-10-11] MEDS: tamsulosin 0.4 mg Capsule PO (09:18)
[2021-10-11] MEDS: atorvastatin 40 mg Tablet 20 MG PO (09:18)
[2021-10-11] MEDS: risperiDONE 0.25 mg Tablet PO ×2 (09:18→17:21)
[2021-10-11 12:00] VITALS: BP 141/62; PULSE 79; RESP 15; O2SAT 96
[2021-10-11 12:21] LABS: Glucose Point of Care 249 mg/dL (70-110)
[2021-10-11] MEDS: insulin lispro 100 unit/1 mL SUBCUT ×3 (12:25→22:09)
[2021-10-11 12:37] LABS: Procalcitonin 0.05 ng/mL (0-0.5)
--- NOTE | 2021-10-11 12:55 | PC.CHAP ---
Pastoral Care Encounter/Spiritual Assessment Type of Contact [] Declined bioinformatics developer visit [] Patient/Family/Request visit [] Outpatient visit [] Follow-up visit [] Physician referral [] Code/Alert [] Routine visit [] Staff referral [] Actively dying [] Patient sleeping [] Family support [] [] Out of room [] Palliative care [] [] Receiving care in room [] Pre-surgical visit [] Trauma [] Long length of stay [] ICU visit [] Other: Relational/Emotional Strength [] Patient feels connected with others/family/visitors/staff [] Distress [] Loneliness/isolation [] Abandonment Spirituality of Patient [x] Person of Winsome [] Attends Congregation of their Winsome [x] Believes in Prayer [x] Reads Bible or Sabianist materials [] There are Spiritual issues to be addressed Traffic Coordinator Interventions [x] Prayer [] Active listening [] Non-anxious presence [] Spiritual/emotional support [] Crisis/trauma care [] Spiritual counseling [] Bereavement support [] Provided bereavement packet [] Provided Bible/devotional materials [] Provided toy/stuffed animal, coloring book to patient or family member [] Provided Communion [] Anointing/[place] [] Salvation [] Completed spiritual assessment [] Other: Impact on Illness or Injury [] Angry [] Fearful [] Anxious [] Often cries [] Exhaustion [] Unable to work [] Unable to attend confucianism [] Unable to walk/stand [] Unable to read [] Unable to drive [] Unable to eat/drink [] Unable to sleep [] Unable to be with family [] Patient intubated [] Other: Summary Time spent with patient she was davis busy with friend
[2021-10-11 12:58] LABS: Iron 44 ug/dL (37-145)
[2021-10-11 14:00] LABS: Percent Saturation 18.8 % (20-50); Total Iron Binding Capacity 234 mcg/dl; Unsaturated Iron Binding 190 ug/dL (112-347)
--- NOTE | 2021-10-11 14:26 | PM.PN ---
Subjective Subjective: Hospital course, labs appreciated. On examination patient lying comfortably in bed. Denies any nausea, vomiting, headache. States he still feeling weak. Has remained hemodynamically stable and afebrile. Darling catheter in place. Max assist with physical therapy. Patient is agreeable for SNF placement. Vitals/I&O/Wt Last Vital Signs Temp 97.8 F 10/11/21 08:00 Pulse 79 10/11/21 12:00 Resp 15 10/11/21 12:00 BP 141/62 10/11/21 12:00 Pulse Ox 96 10/11/21 12:00 O2 Del Method 10/10/21 15:58 10/10/21 10/11/21 10/11/21 22:59 06:59 14:59 Intake Total 240 / 1530 50 / 1580 360 / 360 Output Total 0 / 0 1100 / 1100 350 / 350 Balance 240 / 1530 -1050 / 480 10 / 10 Weight last 48 hrs Weight 86.183 kg Physical Exam Narrative: General: Alert oriented x3, chronically ill-appearing,appearing comfortable at this time, HEENT: Normocephalic, atraumatic, EOMI Cardio: RRR, normal S1-S2, no murmurs Respiratory: CTA B/L GI: Abdomen soft, nontender, bowel sounds + Extremities: Trace b/l LE edema Urinary Catheter Management: Darling: Cath Placed During This Visit: yes, but has since been removed by the nurse Reason for Continuing Indwelling Catheter: Decision to DC Catheter Urinary Catheter Date of Insertion: 10/10/21 Urinary Catheter Time of Insertion: 00:45 Date Urinary Catheter Removed: 10/11/21 Time Urinary Catheter Discontinued: 12:31 Data : 10/11/21 04:20 10/11/21 04:20 Micro: Microbiology 10/10/21 00:50 Blood Culture - Preliminary Blood Gram positive cocci Gram Negative Rods 10/10/21 00:45 Urine Culture - Preliminary Urine Catheterized Gram Negative Rods 10/10/21 01:00 Blood Culture - Preliminary Blood NEGATIVE TO DATE A&P Assessment and plan (1) Gram-positive bacteremia: Status: Acute (2) Bacteremia due to Gram-negative bacteria: Status: Acute (3) UTI (urinary tract infection): Status: Acute (4) Weakness: Status: Acute (5) Normocytic anemia: Status: Acute (6) Hyponatremia: Status: Acute (7) COPD (chronic obstructive pulmonary disease): Status: Acute (8) Dehydration: Status: Acute (9) Deficit in activities of daily living (ADL): Status: Acute Plan 75 year old female with past medical history of COPD, diabetes, hyperlipidemia, hypertension presented to the hospital today for generalized weakness and after fall at home,currently being managed for. Gram-positive bacteremia/gram-negative bacteremia: Gram-negative bacteremia most likely secondary to UTI. No active source of gram-positive bacteremia. Patient does not have any open sores. Will need to examine decub's properly. Patient denies of having any recent injuries. Does complain of diarrhea. Follow-up blood cultures. If repeat blood cultures continue to remain positive will need to consider KARISSA to rule out infective endocarditis versus CT back to rule out discitis. Patient will need to be on IV antibiotics for at least 14 days after first negative blood cultures. Repeat blood cultures in a.m. MRSA swab. For now add vancomycin. Will discontinue if MRSA is negative. Continue with IV ceftriaxone. Will change antibiotics as per culture sensitivities if needed. Target blood pressure with mean arterial pressure over 65. Failure to thrive/inability to take care of her ADLs. Acute on chronic hyponatremia: Resolved. Sodium 134 today. Most likely secondary dehydration. Continue to monitor BMP daily for now. Type 2 diabetes mellitus: Start on insulin sliding scale at low-dose protocol. Check A1c. Analgesia: Glycemic control: Insulin sliding scale at low-dose protocol Nutrition: Carb consistent diet CODE STATUS: Full code PUD prophylaxis: Start on famotidine DVT prophylaxis: Heparin 5000 every 12 hourly Discharge planning: Plan to discharge to SNF for further rehabilitation given deconditioning, failure to thrive, require of antibiotics for at least 2 weeks. Continue with care at [facility] This documentation was created by [employer] general manager oracle data cloud software. Every effort was made to ensure accuracy of general manager oracle data cloud. Any obvious errors or omissions should be clarified with the author of the document. Attestations Medical Necessity Statement*: Requires further hospitalization for management of gram-positive, gram-negative bacteremia while safe discharge planning is sought. Time Spent in Patient Care: Greater than 35 minutes Coding Level of Care Code Acute Director Public Service for [facility] Fwd Diagnoses Gram-positive bacteremia R78.81 Bacteremia due to Gram-negative bacteria R78.81 UTI (urinary tract infection) N39.0 Weakness R53.1 Normocytic anemia D64.9 Hyponatremia E87.1 COPD (chronic obstructive pulmonary disease) J44.9 Dehydration E86.0 Deficit in activities of daily living (ADL) Z78.9
[2021-10-11] MEDS: vancomycin 750 MG in sodium chloride 0.9% 250 ML 250 MG IV (14:35)
[2021-10-11 16:00] VITALS: BP 146/72; PULSE 96; RESP 18; TEMP 36.9; O2SAT 94
[2021-10-11 17:21] LABS: Glucose Point of Care 218 mg/dL (70-110)
[2021-10-11] MEDS: ferrous gluconate 324 mg Tablet PO (17:21)
[2021-10-11] MEDS: famotidine 20 mg Tablet PO (17:21)
[2021-10-11 20:00] VITALS: BP 133/56; PULSE 97; RESP 17; TEMP 36.9; O2SAT 95
[2021-10-11 21:02] LABS: Glucose Point of Care 235 mg/dL (70-110)
[2021-10-12] VITALS: BP 109/64; PULSE 89; RESP 17; TEMP 36.8; O2SAT 92
[2021-10-12] MEDS: vancomycin 750 MG in sodium chloride 0.9% 250 ML 250 MG IV ×2 (00:18→13:00)
[2021-10-12] MEDS: cefTRIAXone 1,000 MG in sodium chloride 0.9% (plus) 50 ML 100 MG IV (02:27)
[2021-10-12] MEDS: heparin 5,000 unit/mL INJ 1 mL 5000 UNIT SUBCUT ×2 (02:31→15:47)
[2021-10-12 06:22] LABS: Glucose Point of Care 165 mg/dL (70-110)
[2021-10-12 07:08] LABS: Basophils # 0.1 10^3/uL (0.0-0.1); Basophils % 0.7 %; Eosinophils # 0.5 10^3/uL (0.0-0.8); Eosinophils % 5.2 %; Hematocrit 34.4 % (37.0-47.0); Hemoglobin 10.7 g/dL (11.5-15.3); Lymphocytes # 3.9 10^3/uL (0.8-4.8); Lymphocytes % 37.5 %; Mean Corpuscular HGB Conc 31.1 g/dL (30.0-36.0); Mean Corpuscular Hemoglobin 28.8 pg (28.0-34.0); Mean Corpuscular Volume 92.7 fl (81-99); Mean Platelet Volume 9.7 fL (7.4-10.4); Monocytes # 0.8 10^3/uL (0.2-0.9); Monocytes % 7.6 %; Neutrophils # 5.04 10^3/uL (1.8-7.7); Neutrophils % 48.7 %; Nucleated Red Blood Cells % 0 %; Platelet Count 235 10^3/cmm (130-400); Red Blood Count 3.71 10^6/uL (4.1-5.3); Red Cell Distribution Width 14.2 % (12.1-15.1); White Blood Count 10.4 10^3/uL (4.0-10.0)
[2021-10-12 07:28] LABS: Alanine Aminotransferase 10 U/L (0-33); Albumin Level 3.2 g/dL (3.5-5.2); Alkaline Phosphatase 65 IU/L (35-105); Blood Urea Nitrogen 12 mg/dL (8-23); Calcium 9.1 mg/dL (8.5-10.5); Carbon Dioxide 26 mmol/L (22-29); Chloride 99 mmol/L (98-107); Creatinine Clr Calc Pharmacy 64.5477; Globulin 2.3 g/dL (1.3-4.6); Glucose 122 mg/dL (65-115); Osmolality Calculated 283 mOsm/kg (285-295); Sodium 136 mmol/L (136-145); Total Bilirubin 0.3 mg/dL (0.15-1.2); Total Protein 5.5 g/dL (6.6-8.7)
[2021-10-12 07:30] LABS: Anion Gap 14.9 (5-19); Aspartate Amino Transferase 13 U/L (0-32); Potassium 3.9 mmol/L (3.5-5.1)
[2021-10-12 07:31] LABS: Chol HDL Ratio 2.21 mg/dL (0.0-4.40); Cholesterol 86 mg/dL (0-200); HDL Cholesterol 39 mg/dL (60-100); LDL Cholesterol Calculated 33 mg/dL (50-129); Triglycerides 69 mg/dL (0-150); VLDL Cholestrol Calculation 14 mg/dL (0-30)
[2021-10-12 07:43] VITALS: BP 157/80; PULSE 87; RESP 17; TEMP 36.9; O2SAT 95
[2021-10-12 08:11] LABS: Estmated Average Glucose 160; Hemoglobin A1C 7.2 % (4.0-6.0)
[2021-10-12] MEDS: ferrous gluconate 324 mg Tablet PO ×2 (08:21→17:51)
[2021-10-12] MEDS: famotidine 20 mg Tablet PO ×2 (08:22→17:51)
[2021-10-12] MEDS: tamsulosin 0.4 mg Capsule PO (08:22)
[2021-10-12] MEDS: insulin lispro 100 unit/1 mL SUBCUT ×4 (08:22→21:11)
[2021-10-12] MEDS: atorvastatin 40 mg Tablet 20 MG PO (08:22)
[2021-10-12] MEDS: docusate sodium 100 mg Capsule PO ×2 (08:22→17:51)
[2021-10-12] MEDS: gabapentin 300 mg Capsule PO ×3 (08:22→21:06)
[2021-10-12] MEDS: risperiDONE 0.25 mg Tablet PO ×2 (08:22→17:51)
[2021-10-12] MEDS: aspirin 81 mg EC Tablet PO (08:22)
--- NOTE | 2021-10-12 11:02 | PM.PN ---
Subjective Subjective: No acute events overnight. Today morning examination patient sitting up in bed eating her breakfast. Denies of any active new complaints. Has remained hemodynamically stable and afebrile. Vitals/I&O/Wt Last Vital Signs Temp 98.5 F 10/12/21 07:43 Pulse 87 10/12/21 07:43 Resp 17 10/12/21 07:43 BP 157/80 10/12/21 07:43 Pulse Ox 95 10/12/21 07:43 O2 Del Method 10/12/21 07:43 10/11/21 10/12/21 10/12/21 22:59 06:59 14:59 Intake Total 250 / 610 300 / 910 120 / 120 Balance 250 / 260 300 / 560 120 / 120 Physical Exam Narrative: General: Alert oriented x3, chronically ill-appearing,appearing comfortable at this time, HEENT: Normocephalic, atraumatic, EOMI Cardio: RRR, normal S1-S2, no murmurs Respiratory: CTA B/L GI: Abdomen soft, nontender, bowel sounds + Extremities: Trace b/l LE edema Urinary Catheter Management: Darling: Cath Placed During This Visit: yes, but has since been removed by the nurse Reason for Continuing Indwelling Catheter: Decision to DC Catheter Urinary Catheter Date of Insertion: 10/10/21 Urinary Catheter Time of Insertion: 00:45 Date Urinary Catheter Removed: 10/11/21 Time Urinary Catheter Discontinued: 12:31 Data : 10/12/21 06:10 10/12/21 06:10 Micro: Microbiology 10/12/21 08:09 Blood Culture - Preliminary Blood SPECIMEN COLLECTED 10/12/21 06:10 Blood Culture - Preliminary Blood SPECIMEN COLLECTED 10/10/21 00:50 Blood Culture - Preliminary Blood Gram positive cocci Gram Negative Rods 10/10/21 00:45 Urine Culture - Preliminary Urine Catheterized Gram Negative Rods A&P Assessment and plan (1) E coli bacteremia: Status: Acute (2) Bacteremia due to Streptococcus: Status: Acute (3) UTI (urinary tract infection): Status: Acute (4) Weakness: Status: Acute (5) Normocytic anemia: Status: Acute (6) Hyponatremia: Status: Acute (7) COPD (chronic obstructive pulmonary disease): Status: Acute (8) Dehydration: Status: Acute (9) Deficit in activities of daily living (ADL): Status: Acute Plan 75 year old female with past medical history of COPD, diabetes, hyperlipidemia, hypertension presented to the hospital today for generalized weakness and after fall at home,currently being managed for. Gram-positive bacteremia/gram-negative bacteremia: Gram-negative bacteremia most likely secondary to UTI. No active source of gram-positive bacteremia. Patient does not have any open sores. Will need to examine decub's properly. Patient denies of having any recent injuries. Does complain of diarrhea. Follow-up blood cultures sent on 10/12. If repeat blood cultures continue to remain positive will need to consider KARISSA to rule out infective endocarditis versus CT back to rule out discitis. Patient will need to be on IV antibiotics for at least 14 days after first negative blood cultures. MRSA pending. C/w vancomycin. Will discontinue if MRSA is negative. Continue with IV ceftriaxone. Will change antibiotics as per culture sensitivities if needed. Target blood pressure with mean arterial pressure over 65. Failure to thrive/inability to take care of her ADLs. Acute on chronic hyponatremia: Resolved. Most likely secondary dehydration. Continue to monitor BMP daily for now. Type 2 diabetes mellitus: Start on insulin sliding scale at low-dose protocol. A1c 7.2 Analgesia: Glycemic control: Insulin sliding scale at low-dose protocol Nutrition: Carb consistent diet CODE STATUS: Full code PUD prophylaxis: Famotidine DVT prophylaxis: Heparin 5000 every 12 hourly Discharge planning: Plan to discharge to SNF for further rehabilitation given deconditioning, failure to thrive, require of antibiotics for at least 2 weeks. Continue with care at [facility] This documentation was created by [employer] retail bakery manager software. Every effort was made to ensure accuracy of retail bakery manager. Any obvious errors or omissions should be clarified with the author of the document. Attestations Medical Necessity Statement*: Requires further hospitalization for E. coli bacteremia, strep bacteremia while safe discharge planning is sought Time Spent in Patient Care: Greater than 35 minutes Coding Level of Care Code Acute Third Helper for [facility] Fwd Diagnoses E coli bacteremia R78.81; B96.20 Bacteremia due to Streptococcus R78.81; B95.5 UTI (urinary tract infection) N39.0 Weakness R53.1 Normocytic anemia D64.9 Hyponatremia E87.1 COPD (chronic obstructive pulmonary disease) J44.9 Dehydration E86.0 Deficit in activities of daily living (ADL) Z78.9
[2021-10-12 11:33] LABS: Glucose Point of Care 241 mg/dL (70-110)
[2021-10-12 12:00] VITALS: BP 156/76; PULSE 102; RESP 17; TEMP 36.8; O2SAT 93
[2021-10-12 15:07] LABS: Osmolality Urine 559 mOsm/kg (50-1200)
[2021-10-12 15:18] LABS: Osmolality Serum 274 mOsm/kg (278-305)
[2021-10-12 16:00] VITALS: BP 128/64; PULSE 100; RESP 18; TEMP 36.9; O2SAT 96
[2021-10-12 17:46] LABS: Glucose Point of Care 332 mg/dL (70-110)
[2021-10-12 20:00] VITALS: BP 134/76; PULSE 94; RESP 17; TEMP 36.5; O2SAT 97
[2021-10-12 20:17] LABS: Glucose Point of Care 207 mg/dL (70-110)
[2021-10-12 23:52] LABS: Vancomycin Trough 9.1 ug/mL (10-15)
[2021-10-13] VITALS: BP 120/73; PULSE 81; RESP 17; TEMP 36.7; O2SAT 96
[2021-10-13] MEDS: vancomycin 750 MG in sodium chloride 0.9% 250 ML 250 MG IV (00:41)
[2021-10-13] MEDS: cefTRIAXone 1,000 MG in sodium chloride 0.9% (plus) 50 ML 100 MG IV (01:54)
[2021-10-13] MEDS: heparin 5,000 unit/mL INJ 1 mL 5000 UNIT SUBCUT ×2 (01:58→17:39)
[2021-10-13 06:32] LABS: Glucose Point of Care 171 mg/dL (70-110)
[2021-10-13 07:37] VITALS: BP 147/72; PULSE 82; RESP 16; TEMP 36.9; O2SAT 97
[2021-10-13] MEDS: insulin lispro 100 unit/1 mL SUBCUT ×4 (08:34→21:21)
[2021-10-13] MEDS: atorvastatin 40 mg Tablet 20 MG PO (08:35)
[2021-10-13] MEDS: docusate sodium 100 mg Capsule PO ×2 (08:35→17:38)
[2021-10-13] MEDS: ferrous gluconate 324 mg Tablet PO ×2 (08:35→17:39)
[2021-10-13] MEDS: gabapentin 300 mg Capsule PO ×3 (08:35→21:05)
[2021-10-13] MEDS: risperiDONE 0.25 mg Tablet PO ×2 (08:36→17:39)
[2021-10-13] MEDS: aspirin 81 mg EC Tablet PO (08:36)
[2021-10-13] MEDS: tamsulosin 0.4 mg Capsule PO (08:36)
[2021-10-13] MEDS: famotidine 20 mg Tablet PO ×2 (08:37→17:39)
[2021-10-13 11:03] LABS: Glucose Point of Care 258 mg/dL (70-110)
[2021-10-13 11:14] VITALS: BP 134/74; PULSE 93; RESP 15; TEMP 36.7; O2SAT 96
--- NOTE | 2021-10-13 11:17 | P.PN_ITS ---
Subjective Subjective: No acute events overnight. Patient continues to do well. Denies any new complaints. Sitting up in chair during examination today. Has remained afebrile and hemodynamically stable. Vitals/I&O/Wt Last Vital Signs Temp 98.0 F 10/13/21 11:14 Pulse 93 10/13/21 11:14 Resp 15 10/13/21 11:14 BP 134/74 10/13/21 11:14 Pulse Ox 96 10/13/21 11:14 O2 Del Method 10/13/21 11:14 10/12/21 10/13/21 10/13/21 22:59 06:59 14:59 Intake Total 480 / 850 300 / 1150 360 / 360 Balance 480 / 850 300 / 1150 360 / 360 Physical Exam Narrative: General: Alert oriented x3, chronically ill-appearing,appearing comfortable at this time, HEENT: Normocephalic, atraumatic, EOMI Cardio: RRR, normal S1-S2, no murmurs Respiratory: CTA B/L GI: Abdomen soft, nontender, bowel sounds + Extremities: Trace b/l LE edema Urinary Catheter Management: Darling: Cath Placed During This Visit: yes, but has since been removed by the nurse Reason for Continuing Indwelling Catheter: Decision to DC Catheter Urinary Catheter Date of Insertion: 10/10/21 Urinary Catheter Time of Insertion: 00:45 Date Urinary Catheter Removed: 10/11/21 Time Urinary Catheter Discontinued: 12:31 Data : 10/12/21 06:10 10/12/21 06:10 Micro: Microbiology 10/12/21 08:09 Blood Culture - Preliminary Blood NEGATIVE TO DATE 10/12/21 06:10 Blood Culture - Preliminary Blood NEGATIVE TO DATE 10/12/21 09:25 MRSA Culture - Final Nose 10/10/21 00:45 Urine Culture - Final Urine Catheterized Escherichia coli 10/10/21 00:50 Blood Culture - Preliminary Blood Escherichia coli Strep species, gamma-hemolytic A&P Assessment and plan (1) E coli bacteremia: Status: Acute (2) Bacteremia due to Streptococcus: Status: Acute (3) UTI (urinary tract infection): Status: Acute (4) Weakness: Status: Acute (5) Normocytic anemia: Status: Acute (6) Hyponatremia: Status: Acute (7) COPD (chronic obstructive pulmonary disease): Status: Acute (8) Dehydration: Status: Acute (9) Deficit in activities of daily living (ADL): Status: Acute Plan 75 year old female with past medical history of COPD, diabetes, hyperlipidemia, hypertension presented to the hospital today for generalized weakness and after fall at home,currently being managed for. E. coli bacteremia/Streptococcus bacteremia: Gram-negative bacteremia most likely secondary to UTI. No active source of gram-positive bacteremia. Patient does not have any open sores. Will need to examine decub's properly. Patient denies of having any recent injuries. Does complain of diarrhea. Follow-up blood cultures sent on 10/12. If repeat blood cultures continue to remain positive will need to consider KARISSA to rule out infective endocarditis versus CT back to rule out discitis. Patient will need to be on IV antibiotics for at least 14 days after first negative blood cultures. MRSA pending. C/w vancomycin. Will discontinue if MRSA is negative. Continue with IV ceftriaxone. Will change antibiotics as per culture sensitivities if needed. Target blood pressure with mean arterial pressure over 65. Failure to thrive/inability to take care of her ADLs. Acute on chronic hyponatremia: Resolved. Most likely secondary dehydration. Continue to monitor BMP daily for now. Type 2 diabetes mellitus: Start on insulin sliding scale at low-dose protocol. A1c 7.2 Analgesia: Glycemic control: Insulin sliding scale at low-dose protocol Nutrition: Carb consistent diet CODE STATUS: Full code PUD prophylaxis: Famotidine DVT prophylaxis: Heparin 5000 every 12 hourly Discharge planning: Plan to discharge to SNF for further rehabilitation given deconditioning, failure to thrive, require of antibiotics for at least 2 weeks. Continue with care at [facility] This documentation was created by [employer] nuclear medicine chief technologist software. Every effort was made to ensure accuracy of nuclear medicine chief technologist. Any obvious errors or omissions should be clarified with the author of the document. Plan for day: Given lab holiday today. Repeat CBC and CMP in AM. Continue with IV ceftriaxone. Hold off on vancomycin. Follow-up blood culture results from 10/12. Streptococcus bacteremia most likely a contaminant but ceftriaxone will cover both for E. coli and Streptococcus. If cultures remain negative for next 24 hours we will plan for PICC line. Patient will need IV ceftriaxone for 14 days after first negative blood cultures. Awaiting placement. CODE STATUS confirmed with the patient. She wants to remain full code. Attestations Medical Necessity Statement*: Requires further E. coli bacterem ia/Streptococcus bacteremia while safe discharge planning is sought Time Spent in Patient Care: Greater than 35 minutes Coding Level of Care Code Acute Shock Absorption Floor Layer for g Fwd Diagnoses E coli bacteremia R78.81; B96.20 Bacteremia due to Streptococcus R78.81; B95.5 UTI (urinary tract infection) N39.0 Weakness R53.1 Normocytic anemia D64.9 Hyponatremia E87.1 COPD (chronic obstructive pulmonary disease) J44.9 Dehydration E86.0 Deficit in activities of daily living (ADL) Z78.9
[2021-10-13 15:19] VITALS: BP 135/78; PULSE 98; RESP 16; TEMP 36.7; O2SAT 95
[2021-10-13 17:13] LABS: Glucose Point of Care 245 mg/dL (70-110)
[2021-10-13 19:56] VITALS: BP 146/57; PULSE 120; RESP 18; TEMP 36.9; O2SAT 98
--- NOTE | 2021-10-13 19:57 | PC.NURSE ---
i reported high pulse 120 to nurse
[2021-10-13 20:48] LABS: Glucose Point of Care 261 mg/dL (70-110)
[2021-10-14] VITALS (7 sets, daily range): BP systolic 105–137; BP diastolic 53–75; PULSE 81–97; RESP 16–20; TEMP 36.6–37.1; O2SAT 94–98
[2021-10-14] MEDS: efferdent effervescent 1 EACH DENTAL (01:02)
[2021-10-14] MEDS: cefTRIAXone 1,000 MG in sodium chloride 0.9% (plus) 50 ML 100 MG IV (02:35)
[2021-10-14] MEDS: heparin 5,000 unit/mL INJ 1 mL 5000 UNIT SUBCUT ×2 (02:36→16:22)
[2021-10-14 06:22] LABS: Glucose Point of Care 226 mg/dL (70-110)
[2021-10-14] MEDS: insulin lispro 100 unit/1 mL SUBCUT ×4 (10:27→21:25)
[2021-10-14] MEDS: atorvastatin 40 mg Tablet 20 MG PO (10:28)
[2021-10-14] MEDS: aspirin 81 mg EC Tablet PO (10:28)
[2021-10-14] MEDS: tamsulosin 0.4 mg Capsule PO (10:28)
[2021-10-14] MEDS: gabapentin 300 mg Capsule PO ×3 (10:28→21:17)
[2021-10-14] MEDS: famotidine 20 mg Tablet PO ×2 (10:28→18:47)
[2021-10-14] MEDS: ferrous gluconate 324 mg Tablet PO ×2 (10:28→18:47)
[2021-10-14] MEDS: risperiDONE 0.25 mg Tablet PO ×2 (10:29→18:47)
[2021-10-14] MEDS: docusate sodium 100 mg Capsule PO ×2 (10:29→18:47)
[2021-10-14 10:45] LABS: Basophils # 0.1 10^3/uL (0.0-0.1); Basophils % 0.8 %; Eosinophils # 0.4 10^3/uL (0.0-0.8); Eosinophils % 5.3 %; Hematocrit 32.2 % (37.0-47.0); Hemoglobin 10.3 g/dL (11.5-15.3); Lymphocytes # 2.9 10^3/uL (0.8-4.8); Lymphocytes % 37.2 %; Mean Corpuscular Hemoglobin 28.8 pg (28.0-34.0); Mean Corpuscular Volume 89.9 fl (81-99); Mean Platelet Volume 8.6 fL (7.4-10.4); Monocytes # 0.5 10^3/uL (0.2-0.9); Monocytes % 6.3 %; Neutrophils # 3.85 10^3/uL (1.8-7.7); Neutrophils % 50.1 %; Nucleated Red Blood Cells % 0 %; Platelet Count 285 10^3/cmm (130-400); Red Blood Count 3.58 10^6/uL (4.1-5.3); Red Cell Distribution Width 14.5 % (12.1-15.1); White Blood Count 7.7 10^3/uL (4.0-10.0)
[2021-10-14 11:13] LABS: Alanine Aminotransferase 10 U/L (0-33); Albumin Level 2.9 g/dL (3.5-5.2); Alkaline Phosphatase 68 IU/L (35-105); Anion Gap 10.3 (5-19); Aspartate Amino Transferase 11 U/L (0-32); Blood Urea Nitrogen 8 mg/dL (8-23); Calcium 8.8 mg/dL (8.5-10.5); Carbon Dioxide 28 mmol/L (22-29); Chloride 98 mmol/L (98-107); Creatinine Clr Calc Pharmacy 64.5477; Glucose 296 mg/dL (65-115); Osmolality Calculated 283 mOsm/kg (285-295); Potassium 4.3 mmol/L (3.5-5.1); Sodium 132 mmol/L (136-145); Total Bilirubin 0.3 mg/dL (0.15-1.2); Total Protein 5.9 g/dL (6.6-8.7)
[2021-10-14 11:13] LABS: Glucose Point of Care 282 mg/dL (70-110)
--- NOTE | 2021-10-14 12:14 | PC.OT ---
OT TREATMENT IS NO LONGER WARRANTED; PATIENT HAS PREVIOUS HIGH LEVEL OF CARE; DEPENDENT ON CAREGIVERS FOR ALL ADL/MRADL NEEDS. NOT A CANDIDATE FOR SKILLED REHAB.
--- NOTE | 2021-10-14 13:03 | PC.SOCIAL ---
Pg 2 IMM Explained to pt Pg 2 IMM. No questions voiced. Provided pt a copy. Initialed, dated, & timed a copy & placed in chart.
--- NOTE | 2021-10-14 13:21 | P.PN_ITS ---
Subjective Subjective: No new complaints. Has remained hemodynamically stable and afebrile. Vitals/I&O/Wt Last Vital Signs Temp 98.7 F 10/14/21 11:45 Pulse 90 10/14/21 11:45 Resp 18 10/14/21 11:45 BP 132/75 10/14/21 11:45 Pulse Ox 95 10/14/21 11:45 O2 Del Method 10/14/21 11:45 10/13/21 10/14/21 10/14/21 22:59 06:59 14:59 Intake Total 240 / 840 410 / 410 Balance 240 / 840 410 / 410 Physical Exam Narrative: General: Alert oriented x3, chronically ill-appearing,appearing comfortable at this time, HEENT: Normocephalic, atraumatic, EOMI Cardio: RRR, normal S1-S2, no murmurs Respiratory: CTA B/L GI: Abdomen soft, nontender, bowel sounds + Extremities: Trace b/l LE edema Urinary Catheter Management: Darling: Cath Placed During This Visit: yes, but has since been removed by the nurse Reason for Continuing Indwelling Catheter: Decision to DC Catheter Urinary Catheter Date of Insertion: 10/10/21 Urinary Catheter Time of Insertion: 00:45 Date Urinary Catheter Removed: 10/11/21 Time Urinary Catheter Discontinued: 12:31 Data : 10/14/21 10:36 10/14/21 10:36 Micro: Microbiology 10/10/21 01:00 Blood Culture - Final Blood Escherichia coli Streptococcus bovis 10/10/21 00:50 Blood Culture - Final Blood Escherichia coli Streptococcus bovis 10/12/21 08:09 Blood Culture - Preliminary Blood NEGATIVE TO DATE A&P Assessment and plan (1) E coli bacteremia: Status: Acute (2) Bacteremia due to Streptococcus: Status: Acute (3) UTI (urinary tract infection): Status: Acute (4) Weakness: Status: Acute (5) Normocytic anemia: Status: Acute (6) Hyponatremia: Status: Acute (7) COPD (chronic obstructive pulmonary disease): Status: Acute (8) Dehydration: Status: Acute (9) Deficit in activities of daily living (ADL): Status: Acute Plan 75 year old female with past medical history of COPD, diabetes, hyperlipidemia, hypertension presented to the hospital today for generalized weakness and after fall at home,currently being managed for. E. coli bacteremia/Streptococcus bacteremia: Gram-negative bacteremia most likely secondary to UTI. No active source of gram-positive bacteremia. Small superficial open sores and bilateral cough. Repeat blood cultures on 10/12 so far negative. Continue with IV ceftriaxone which will cover for both E. coli and Streptococcus. Most likely will need 14 days of IV antibiotics till 10/26. Having difficulty to find placement. We will plan for PICC line supply to time of discharge. Failure to thrive/inability to take care of her ADLs. Acute on chronic hyponatremia: Resolved. Most likely secondary dehydration. Continue to monitor BMP daily for now. Type 2 diabetes mellitus: Start on insulin sliding scale at low-dose protocol. A1c 7.2 Analgesia: Glycemic control: Insulin sliding scale at low-dose protocol Nutrition: Carb consistent diet CODE STATUS: Full code PUD prophylaxis: Famotidine DVT prophylaxis: Heparin 5000 every 12 hourly Discharge planning: Plan to discharge to SNF for further rehabilitation given deconditioning, failure to thrive, require of antibiotics for at least 2 weeks. Continue with care at [facility] This documentation was created by [employer] defensive driving instructor software. Every effort was made to ensure accuracy of defensive driving instructor. Any obvious errors or omissions should be clarified with the author of the document. Attestations Medical Necessity Statement*: Requires further hospitalization for management of E. coli and Streptococcus bacteremia while safe discharge planning discharge Time Spent in Patient Care: Greater than 35 minutes Coding Level of Care Code Acute Industrial Manufacturing Technician for [facility] Fwd Diagnoses E coli bacteremia R78.81; B96.20 Bacteremia due to Streptococcus R78.81; B95.5 UTI (urinary tract infection) N39.0 Weakness R53.1 Normocytic anemia D64.9 Hyponatremia E87.1 COPD (chronic obstructive pulmonary disease) J44.9 Dehydration E86.0 Deficit in activities of daily living (ADL) Z78.9
[2021-10-14 17:27] LABS: Glucose Point of Care 203 mg/dL (70-110)
[2021-10-14 21:02] LABS: Glucose Point of Care 246 mg/dL (70-110)
[2021-10-15] MEDS: cefTRIAXone 1,000 MG in sodium chloride 0.9% (plus) 50 ML 100 MG IV (02:59)
[2021-10-15] MEDS: heparin 5,000 unit/mL INJ 1 mL 5000 UNIT SUBCUT ×2 (02:59→13:33)
--- NOTE | 2021-10-15 03:06 | PC.NURSE ---
Assumed care of this patient at this time. Received bedside report from Mireya Hull RN. Patient resting in bed with eyes closed. Responds appropriately to verbal stimuli. Will continue to monitor.
[2021-10-15 04:00] VITALS: BP 133/72; PULSE 80; RESP 16; TEMP 36.6; O2SAT 94
[2021-10-15 06:42] LABS: Glucose Point of Care 167 mg/dL (70-110)
[2021-10-15 08:00] VITALS: BP 133/72; PULSE 82; RESP 16; TEMP 36.7
[2021-10-15 08:24] VITALS: BP 133/72; PULSE 82; RESP 16; TEMP 36.7; O2SAT 94
[2021-10-15] MEDS: ferrous gluconate 324 mg Tablet PO ×2 (09:02→17:42)
[2021-10-15] MEDS: atorvastatin 40 mg Tablet 20 MG PO (09:02)
[2021-10-15] MEDS: tamsulosin 0.4 mg Capsule PO (09:03)
[2021-10-15] MEDS: famotidine 20 mg Tablet PO ×2 (09:04→17:43)
[2021-10-15] MEDS: aspirin 81 mg EC Tablet PO (09:04)
[2021-10-15] MEDS: gabapentin 300 mg Capsule PO ×3 (09:04→20:20)
[2021-10-15] MEDS: docusate sodium 100 mg Capsule PO ×2 (09:04→17:42)
[2021-10-15] MEDS: insulin lispro 100 unit/1 mL SUBCUT ×4 (09:05→20:20)
[2021-10-15] MEDS: risperiDONE 0.25 mg Tablet PO ×2 (09:08→17:42)
[2021-10-15 12:00] VITALS: BP 135/72; PULSE 98; RESP 16; TEMP 36.8; O2SAT 93
[2021-10-15 12:30] LABS: Glucose Point of Care 199 mg/dL (70-110)
--- NOTE | 2021-10-15 13:44 | PM.PN ---
Subjective Subjective: No acute vents overnight. Has remained medically stable and afebrile. No new complaints. On exam sitting up in bed eating breakfast. Vitals/I&O/Wt Last Vital Signs Temp 98.1 F 10/15/21 08:24 Pulse 82 10/15/21 08:24 Resp 16 10/15/21 08:24 BP 133/72 10/15/21 08:24 Pulse Ox 94 10/15/21 08:24 O2 Del Method 10/15/21 08:24 10/14/21 10/15/21 10/15/21 22:59 06:59 14:59 Intake Total 240 / 650 50 / 700 Balance 240 / 650 50 / 700 Physical Exam Narrative: General: Alert oriented x3, chronically ill-appearing,appearing comfortable at this time, HEENT: Normocephalic, atraumatic, EOMI Cardio: RRR, normal S1-S2, no murmurs Respiratory: CTA B/L GI: Abdomen soft, nontender, bowel sounds + Extremities: Trace b/l LE edema Urinary Catheter Management: Darling: Cath Placed During This Visit: yes, but has since been removed by the nurse Reason for Continuing Indwelling Catheter: Decision to DC Catheter Urinary Catheter Date of Insertion: 10/10/21 Urinary Catheter Time of Insertion: 00:45 Date Urinary Catheter Removed: 10/11/21 Time Urinary Catheter Discontinued: 12:31 Data : 10/14/21 10:36 10/14/21 10:36 A&P Assessment and plan (1) E coli bacteremia: Status: Acute (2) Bacteremia due to Streptococcus: Status: Acute (3) UTI (urinary tract infection): Status: Acute (4) Weakness: Status: Acute (5) Normocytic anemia: Status: Acute (6) Hyponatremia: Status: Acute (7) COPD (chronic obstructive pulmonary disease): Status: Acute (8) Dehydration: Status: Acute (9) Deficit in activities of daily living (ADL): Status: Acute Plan 75 year old female with past medical history of COPD, diabetes, hyperlipidemia, hypertension presented to the hospital today for generalized weakness and after fall at home,currently being managed for. E. coli bacteremia/Streptococcus bacteremia: Gram-negative bacteremia most likely secondary to UTI. No active source of gram-positive bacteremia. Small superficial open sores and bilateral cough. Repeat blood cultures on 10/12 so far negative. Continue with IV ceftriaxone which will cover for both E. coli and Streptococcus. Most likely will need 14 days of IV antibiotics till 10/26. Having difficulty to find placement. We will plan for PICC gasoline plant operator to time of discharge. Failure to thrive/inability to take care of her ADLs. Acute on chronic hyponatremia: Resolved. Most likely secondary dehydration. Continue to monitor BMP daily for now. Type 2 diabetes mellitus: Start on insulin sliding scale at low-dose protocol. A1c 7.2 Analgesia: Glycemic control: Insulin sliding scale at low-dose protocol Nutrition: Carb consistent diet CODE STATUS: Full code PUD prophylaxis: Famotidine DVT prophylaxis: Heparin 5000 every 12 hourly Discharge planning: Plan to discharge to SNF for further rehabilitation given deconditioning, failure to thrive, require of antibiotics for at least 2 weeks. Continue with care at [facility] This documentation was created by [employer] message clerk software. Every effort was made to ensure accuracy of message clerk. Any obvious errors or omissions should be clarified with the author of the document. Plan for the day: PICC line placement. Continue ceftriaxone. Last day of antibiotic on 10/26. Awaiting placement. Attestations Medical Necessity Statement*: Requires further hospitalization for management of E. coli/Streptococcus bacteremia while safe discharge planning is sought Time Spent in Patient Care: 16 - 35 minutes Coding Level of Care Code Acute Research Program Coordinator for [facility] Fwd Diagnoses E coli bacteremia R78.81; B96.20 Bacteremia due to Streptococcus R78.81; B95.5 UTI (urinary tract infection) N39.0 Weakness R53.1 Normocytic anemia D64.9 Hyponatremia E87.1 COPD (chronic obstructive pulmonary disease) J44.9 Dehydration E86.0 Deficit in activities of daily living (ADL) Z78.9
--- NOTE | 2021-10-15 14:12 | XR_ITS ---
WS: [id number] XR chest 1V portable [id number] REASON FOR EXAM: post picc insertion FINDINGS: Right arm PICC line placement. PICC line is positioned in the superior vena cava in proper position for use. XR/XR chest 1V portable [id number] IMPRESSION: PICC line placement as above.
[2021-10-15 16:00] VITALS: BP 148/69; PULSE 89; RESP 16; TEMP 37.3; O2SAT 94
[2021-10-15 17:11] LABS: Glucose Point of Care 213 mg/dL (70-110)
[2021-10-15 20:00] VITALS: BP 129/70; PULSE 96; RESP 16; TEMP 37.2; O2SAT 95
[2021-10-15 21:36] LABS: Glucose Point of Care 271 mg/dL (70-110)
[2021-10-16] VITALS (7 sets, daily range): BP systolic 110–159; BP diastolic 61–78; PULSE 68–94; RESP 15–18; TEMP 36.3–36.9; O2SAT 91–97
[2021-10-16] MEDS: heparin 5,000 unit/mL INJ 1 mL 5000 UNIT SUBCUT ×2 (00:43→15:23)
[2021-10-16] MEDS: cefTRIAXone 1,000 MG in sodium chloride 0.9% (plus) 50 ML 100 MG IV (00:43)
[2021-10-16 07:04] LABS: Glucose Point of Care 164 mg/dL (70-110)
[2021-10-16] MEDS: tamsulosin 0.4 mg Capsule PO (08:21)
[2021-10-16] MEDS: gabapentin 300 mg Capsule PO ×3 (08:21→19:15)
[2021-10-16] MEDS: docusate sodium 100 mg Capsule PO ×2 (08:21→17:32)
[2021-10-16] MEDS: famotidine 20 mg Tablet PO ×2 (08:21→17:32)
[2021-10-16] MEDS: insulin lispro 100 unit/1 mL SUBCUT ×4 (08:21→20:29)
[2021-10-16] MEDS: aspirin 81 mg EC Tablet PO (08:21)
[2021-10-16] MEDS: ferrous gluconate 324 mg Tablet PO ×2 (08:21→17:32)
[2021-10-16] MEDS: risperiDONE 0.25 mg Tablet PO ×2 (08:22→17:32)
[2021-10-16] MEDS: atorvastatin 40 mg Tablet 20 MG PO (08:22)
[2021-10-16 11:22] LABS: Glucose Point of Care 308 mg/dL (70-110)
--- NOTE | 2021-10-16 13:09 | P.PN_ITS ---
Subjective Subjective: No new complaints, no acute events. Denies any nausea, vomiting, dizziness, headache. PICC line placed yesterday. Vitals/I&O/Wt Last Vital Signs Temp 97.8 F 10/16/21 11:43 Pulse 92 10/16/21 11:43 Resp 18 10/16/21 11:43 BP 119/69 10/16/21 11:43 Pulse Ox 91 10/16/21 11:43 O2 Del Method 10/16/21 11:43 10/15/21 10/16/21 10/16/21 22:59 06:59 14:59 Intake Total 240 / 360 50 / 410 600 / 600 Balance 240 / 360 50 / 410 600 / 600 Physical Exam Narrative: General: Alert oriented x3, chronically ill-appearing,appearing comfortable at this time, HEENT: Normocephalic, atraumatic, EOMI Cardio: RRR, normal S1-S2, no murmurs Respiratory: CTA B/L GI: Abdomen soft, nontender, bowel sounds + Extremities: Trace b/l LE edema Urinary Catheter Management: Darling: Cath Placed During This Visit: yes, but has since been removed by the nurse Reason for Continuing Indwelling Catheter: Decision to DC Catheter Urinary Catheter Date of Insertion: 10/10/21 Urinary Catheter Time of Insertion: 00:45 Date Urinary Catheter Removed: 10/11/21 Time Urinary Catheter Discontinued: 12:31 Data : 10/14/21 10:36 10/14/21 10:36 A&P Assessment and plan (1) E coli bacteremia: Status: Acute (2) Bacteremia due to Streptococcus: Status: Acute (3) UTI (urinary tract infection): Status: Acute (4) Weakness: Status: Acute (5) Normocytic anemia: Status: Acute (6) Hyponatremia: Status: Acute (7) COPD (chronic obstructive pulmonary disease): Status: Acute (8) Dehydration: Status: Acute (9) Deficit in activities of daily living (ADL): Status: Acute Plan 75 year old female with past medical history of COPD, diabetes, hyperlipidemia, hypertension presented to the hospital today for generalized weakness and after fall at home,currently being managed for. E. coli bacteremia/Streptococcus bacteremia: Gram-negative bacteremia most likely secondary to UTI. No active source of gram-positive bacteremia. Small superficial open sores and bilateral cough. Repeat blood cultures on 10/12 so far negative. Continue with IV ceftriaxone which will cover for both E. coli and Streptococcus. Most likely will need 14 days of IV antibiotics till 10/26. Having difficulty to find placement. We will plan for PICC flakeboard line tender to time of discharge. Failure to thrive/inability to take care of her ADLs. Acute on chronic hyponatremia: Resolved. Most likely secondary dehydration. Continue to monitor BMP daily for now. Type 2 diabetes mellitus: Start on insulin sliding scale at low-dose protocol. A1c 7.2 Analgesia: Glycemic control: Insulin sliding scale at low-dose protocol Nutrition: Carb consistent diet CODE STATUS: Full code PUD prophylaxis: Famotidine DVT prophylaxis: Heparin 5000 every 12 hourly Discharge planning: Plan to discharge to SNF for further rehabilitation given deconditioning, failure to thrive, require of antibiotics for at least 2 weeks. Continue with care at [facility] This documentation was created by [employer] engineer station mainline software. Every effort was made to ensure accuracy of engineer station mainline. Any obvious errors or omissions should be clarified with the author of the document. Plan for the day: Increase to high-dose insulins protocol. Continue ceftriax one. Repeat labs in AM. Awaiting placement. Attestations Medical Necessity Statement*: Requires hospitalization for E. coli bacteremia, Staphylococcus bacteremia, IV antibiotics while further discharge planning is sought. Time Spent in Patient Care: 16 - 35 minutes Coding Level of Care Code Acute Flash Drier Operator for [facility] Fwd Diagnoses E coli bacteremia R78.81; B96.20 Bacteremia due to Streptococcus R78.81; B95.5 UTI (urinary tract infection) N39.0 Weakness R53.1 Normocytic anemia D64.9 Hyponatremia E87.1 COPD (chronic obstructive pulmonary disease) J44.9 Dehydration E86.0 Deficit in activities of daily living (ADL) Z78.9
[2021-10-16 16:49] LABS: Glucose Point of Care 226 mg/dL (70-110)
[2021-10-16 20:09] LABS: Glucose Point of Care 205 mg/dL (70-110)
[2021-10-17] MEDS: heparin 5,000 unit/mL INJ 1 mL 5000 UNIT SUBCUT ×2 (00:24→14:28)
[2021-10-17] MEDS: cefTRIAXone 1,000 MG in sodium chloride 0.9% (plus) 50 ML 100 MG IV (00:24)
[2021-10-17 04:00] VITALS: BP 137/80; PULSE 101; RESP 16; TEMP 36.2; O2SAT 95
[2021-10-17 05:49] LABS: Basophils # 0.1 10^3/uL (0.0-0.1); Basophils % 0.6 %; Eosinophils # 0.5 10^3/uL (0.0-0.8); Eosinophils % 4.8 %; Hemoglobin 9.9 g/dL (11.5-15.3); Lymphocytes % 40.4 %; Mean Corpuscular HGB Conc 30.9 g/dL (30.0-36.0); Mean Corpuscular Volume 93.8 fl (81-99); Mean Platelet Volume 8.8 fL (7.4-10.4); Monocytes # 0.9 10^3/uL (0.2-0.9); Monocytes % 8.5 %; Neutrophils # 4.53 10^3/uL (1.8-7.7); Neutrophils % 45.4 %; Nucleated Red Blood Cells % 0 %; Platelet Count 272 10^3/cmm (130-400); Red Blood Count 3.41 10^6/uL (4.1-5.3); Red Cell Distribution Width 15.4 % (12.1-15.1)
[2021-10-17 06:12] LABS: Alanine Aminotransferase 12 U/L (0-33); Albumin Level 2.9 g/dL (3.5-5.2); Alkaline Phosphatase 57 IU/L (35-105); Anion Gap 15.1 (5-19); Aspartate Amino Transferase 12 U/L (0-32); Blood Urea Nitrogen 9 mg/dL (8-23); Carbon Dioxide 26 mmol/L (22-29); Chloride 99 mmol/L (98-107); Creatinine Clr Calc Pharmacy 64.5477; Globulin 2.8 g/dL (1.3-4.6); Glucose 124 mg/dL (65-115); Osmolality Calculated 282 mOsm/kg (285-295); Potassium 4.1 mmol/L (3.5-5.1); Sodium 136 mmol/L (136-145); Total Bilirubin 0.2 mg/dL (0.15-1.2); Total Protein 5.7 g/dL (6.6-8.7)
[2021-10-17 06:47] LABS: Glucose Point of Care 149 mg/dL (70-110)
[2021-10-17 07:40] VITALS: BP 136/70; PULSE 97; RESP 18; TEMP 36.8; O2SAT 91
[2021-10-17] MEDS: insulin lispro 100 unit/1 mL SUBCUT ×3 (09:01→17:54)
[2021-10-17] MEDS: atorvastatin 40 mg Tablet 20 MG PO (09:02)
[2021-10-17] MEDS: famotidine 20 mg Tablet PO ×2 (09:02→17:55)
[2021-10-17] MEDS: aspirin 81 mg EC Tablet PO (09:02)
[2021-10-17] MEDS: docusate sodium 100 mg Capsule PO ×2 (09:02→17:55)
[2021-10-17] MEDS: tamsulosin 0.4 mg Capsule PO (09:03)
[2021-10-17] MEDS: gabapentin 300 mg Capsule PO ×3 (09:03→20:27)
[2021-10-17] MEDS: ferrous gluconate 324 mg Tablet PO ×2 (09:03→17:55)
[2021-10-17] MEDS: risperiDONE 0.25 mg Tablet PO ×2 (09:03→18:00)
[2021-10-17 11:02] LABS: Glucose Point of Care 307 mg/dL (70-110)
[2021-10-17 12:00] VITALS: BP 137/81; PULSE 103; RESP 18; TEMP 36.8; O2SAT 91
--- NOTE | 2021-10-17 12:44 | PM.PN ---
Subjective Subjective: No evidence overnight. Denies new complaints. Has remained hemodynamically stable and afebrile. Repeat blood work reviewed. Vitals/I&O/Wt Last Vital Signs Temp 98.3 F 10/17/21 12:00 Pulse 103 H 10/17/21 12:00 Resp 18 10/17/21 12:00 BP 137/81 10/17/21 12:00 Pulse Ox 91 10/17/21 12:00 O2 Del Method 10/17/21 12:00 10/16/21 10/17/21 10/17/21 22:59 06:59 14:59 Intake Total 240 / 840 350 / 1190 360 / 360 Balance 240 / 840 350 / 1190 360 / 360 Physical Exam Narrative: General: Alert oriented x3, chronically ill-appearing,appearing comfortable at this time, HEENT: Normocephalic, atraumatic, EOMI Cardio: RRR, normal S1-S2, no murmurs Respiratory: CTA B/L GI: Abdomen soft, nontender, bowel sounds + Extremities: Trace b/l LE edema Urinary Catheter Management: Darling: Cath Placed During This Visit: yes, but has since been removed by the nurse Reason for Continuing Indwelling Catheter: Decision to DC Catheter Urinary Catheter Date of Insertion: 10/10/21 Urinary Catheter Time of Insertion: 00:45 Date Urinary Catheter Removed: 10/11/21 Time Urinary Catheter Discontinued: 12:31 Data : 10/17/21 05:17 10/17/21 05:17 Micro: Microbiology 10/12/21 08:09 Blood Culture - Final Blood NO GROWTH AFTER 5 DAYS 10/12/21 06:10 Blood Culture - Final Blood NO GROWTH AFTER 5 DAYS A&P Assessment and plan (1) E coli bacteremia: Status: Acute (2) Bacteremia due to Streptococcus: Status: Acute (3) UTI (urinary tract infection): Status: Acute (4) Weakness: Status: Acute (5) Normocytic anemia: Status: Acute (6) Hyponatremia: Status: Acute (7) COPD (chronic obstructive pulmonary disease): Status: Acute (8) Dehydration: Status: Acute (9) Deficit in activities of daily living (ADL): Status: Acute Plan 75 year old female with past medical history of COPD, diabetes, hyperlipidemia, hypertension presented to the hospital today for generalized weakness and after fall at home,currently being managed for. E. coli bacteremia/Streptococcus bacteremia: Gram-negative bacteremia most likely secondary to UTI. No active source of gram-positive bacteremia. Small superficial open sores and bilateral cough. Repeat blood cultures on 10/12 so far negative. Continue with IV ceftriaxone which will cover for both E. coli and Streptococcus. Most likely will need 14 days of IV antibiotics till 10/26. Having difficulty to find placement. We will plan for PICC mason liner to time of discharge. Failure to thrive/inability to take care of her ADLs. Acute on chronic hyponatremia: Resolved. Most likely secondary dehydration. Continue to monitor BMP daily for now. Type 2 diabetes mellitus: Start on insulin sliding scale at low-dose protocol. A1c 7.2 Analgesia: Glycemic control: Insulin sliding scale at low-dose protocol Nutrition: Carb consistent diet CODE STATUS: Full code PUD prophylaxis: Famotidine DVT prophylaxis: Heparin 5000 every 12 hourly Discharge planning: Plan to discharge to SNF for further rehabilitation given deconditioning, failure to thrive, require of antibiotics for at least 2 weeks. Continue with care at [facility] This documentation was created by [employer] cotton wringer software. Every effort was made to ensure accuracy of cotton wringer. Any obvious errors or omissions should be clarified with the author of the document. Plan for the day: Blood sugars better. Continue to trend. Continue with ceftriaxone. Awaiting placement. Lab holiday in AM. Attestations Medical Necessity Statement*: Requires further hospitalization for IV ceftriaxone for E. coli bacteremia while safe discharge planning is sought Time Spent in Patient Care: 16 - 35 minutes Coding Level of Care Code Acute Water Resources Engineer for [facility] Fwd Diagnoses E coli bacteremia R78.81; B96.20 Bacteremia due to Streptococcus R78.81; B95.5 UTI (urinary tract infection) N39.0 Weakness R53.1 Normocytic anemia D64.9 Hyponatremia E87.1 COPD (chronic obstructive pulmonary disease) J44.9 Dehydration E86.0 Deficit in activities of daily living (ADL) Z78.9
[2021-10-17 15:49] VITALS: BP 129/74; PULSE 104; RESP 18; TEMP 36.9; O2SAT 90
[2021-10-17 17:34] LABS: Glucose Point of Care 207 mg/dL (70-110)
[2021-10-17 20:00] VITALS: BP 134/75; PULSE 105; RESP 17; TEMP 36.8; O2SAT 92
[2021-10-17 20:56] LABS: Glucose Point of Care 214 mg/dL (70-110)
[2021-10-18] VITALS: BP 146/76; PULSE 92; RESP 16; TEMP 37.4; O2SAT 91
[2021-10-18] MEDS: cefTRIAXone 1,000 MG in sodium chloride 0.9% (plus) 50 ML 100 MG IV (02:34)
[2021-10-18] MEDS: heparin 5,000 unit/mL INJ 1 mL 5000 UNIT SUBCUT ×2 (02:37→13:18)
[2021-10-18 02:41] LABS: Glucose Point of Care 206 mg/dL (70-110)
[2021-10-18] MEDS: insulin lispro 100 unit/1 mL SUBCUT ×5 (02:41→22:07)
[2021-10-18 04:00] VITALS: BP 146/76; PULSE 96; RESP 17; TEMP 36.9; O2SAT 91
[2021-10-18 06:36] LABS: Glucose Point of Care 142 mg/dL (70-110)
[2021-10-18 07:12] VITALS: BP 156/85; PULSE 95; RESP 16; TEMP 36.9; O2SAT 92
[2021-10-18] MEDS: risperiDONE 0.25 mg Tablet PO ×2 (08:44→17:28)
[2021-10-18] MEDS: gabapentin 300 mg Capsule PO ×3 (08:44→20:03)
[2021-10-18] MEDS: docusate sodium 100 mg Capsule PO ×2 (08:44→17:28)
[2021-10-18] MEDS: famotidine 20 mg Tablet PO (08:44)
[2021-10-18] MEDS: ferrous gluconate 324 mg Tablet PO ×2 (08:44→17:28)
[2021-10-18] MEDS: atorvastatin 40 mg Tablet 20 MG PO (08:44)
[2021-10-18] MEDS: tamsulosin 0.4 mg Capsule PO (08:45)
[2021-10-18] MEDS: aspirin 81 mg EC Tablet PO (08:45)
--- NOTE | 2021-10-18 09:14 | PC.SOCIAL ---
IMM Updated Updated pt on IMM. No questions voiced. Provided pt a copy. Initialed, dated, & timed copy in chart.
[2021-10-18 11:10] LABS: Glucose Point of Care 347 mg/dL (70-110)
[2021-10-18 11:30] VITALS: BP 143/72; PULSE 83; RESP 16; TEMP 36.8; O2SAT 94
[2021-10-18 15:16] VITALS: BP 137/72; PULSE 81; RESP 16; TEMP 36.9; O2SAT 95
--- NOTE | 2021-10-18 15:49 | P.PN_ITS ---
Subjective Subjective: Patient seen slumped over in a chair. She answered no to all my questions. I do not think there was understanding. Vitals/I&O/Wt Last Vital Signs Temp 98.4 F 10/18/21 15:16 Pulse 81 10/18/21 15:16 Resp 16 10/18/21 15:16 BP 137/72 10/18/21 15:16 Pulse Ox 95 10/18/21 15:16 O2 Del Method 10/18/21 15:16 10/18/21 10/18/21 10/18/21 06:59 14:59 22:59 Intake Total 50 / 650 480 / 480 Balance 50 / 650 480 / 480 Physical Exam Narrative: Patient was seen sitting in chair. She was in no acute distress at time of exam Heart: Regular normal S1-S2 without murmurs clicks gallops or rubs Lungs clear to auscultation without wheezes rales or rhonchi Abdomen soft nontender nondistended positive bowel sounds Extremities no clubbing cyanosis or edema. Urinary Catheter Management: Darling: Cath Placed During This Visit: yes, but has since been removed by the nurse Reason for Continuing Indwelling Catheter: Decision to DC Catheter Urinary Catheter Date of Insertion: 10/10/21 Urinary Catheter Time of Insertion: 00:45 Date Urinary Catheter Removed: 10/11/21 Time Urinary Catheter Discontinued: 12:31 Data : 10/17/21 05:17 10/17/21 05:17 A&P Assessment and plan (1) E coli bacteremia: E. coli bacteremia/Streptococcus bacteremia: Gram-negative bacteremia most likely secondary to UTI. No active source of gram-positive bacteremia. Small superficial open sores and bilateral cough. Repeat blood cultures on 10/12 so far negative. Continue with IV ceftriaxone which will cover for both E. coli and Streptococcus. Most likely will need 14 days of IV antibiotics till 10/26. PICC line placed Having difficulty to find placement due to leaving [place] recently Status: Acute (2) Bacteremia due to Streptococcus: Status: Acute (3) UTI (urinary tract infection): Status: Acute (4) Weakness: Status: Acute (5) Normocytic anemia: Status: Acute (6) Hyponatremia: Acute on chronic hyponatremia: Resolved. Most likely secondary dehydration. Continue to monitor BMP daily for now. Status: Chronic (7) COPD (chronic obstructive pulmonary disease): on albuterol inhaler prn Status: Chronic (8) Dehydration: Pt has received IV fluids and now resolved. Status: Resolved (9) Deficit in activities of daily living (ADL): Failure to thrive/inability to take care of her AD Status: Acute Plan Analgesia: tylenol prn Glycemic control: Insulin sliding scale at low-dose protocol Nutrition: Carb consistent diet CODE STATUS: Full code PUD prophylaxis: not indicated, not home med DVT prophylaxis: Heparin 5000 every 12 hourly Discharge planning: Plan to discharge to SNF for further rehabilitation given deconditioning, failure to thrive, require of antibiotics for at least 2 weeks. This documentation was created by [employer] special weapons unit officer software. Every effort was made to ensure accuracy of special weapons unit officer. Any obvious errors or omissions should be clarified with the author of the document. Attestations Medical Necessity Statement*: Patient is unable to care for self and family unable to care for patient patient has already left [facility] from [facility]. Awaiting new placement. Coding Level of Care Code Acute Valve And Regulator Repairer for [facility] Fwd Diagnoses E coli bacteremia R78.81; B96.20 Bacteremia due to Streptococcus R78.81; B95.5 UTI (urinary tract infection) N39.0 Weakness R53.1 Normocytic anemia D64.9 Hyponatremia E87.1 COPD (chronic obstructive pulmonary disease) J44.9 Dehydration E86.0 Deficit in activities of daily living (ADL) Z78.9
[2021-10-18 17:29] LABS: Glucose Point of Care 197 mg/dL (70-110)
[2021-10-18 20:00] VITALS: BP 178/84; PULSE 101; RESP 16; TEMP 37; O2SAT 95
[2021-10-18] MEDS: acetaminophen 325 mg Tablet 650 MG PO (20:03)
[2021-10-18 21:07] LABS: Glucose Point of Care 229 mg/dL (70-110)
[2021-10-19] VITALS: BP 180/75; PULSE 91; RESP 15; TEMP 37.4; O2SAT 94
[2021-10-19] MEDS: cefTRIAXone 1,000 MG in sodium chloride 0.9% (plus) 50 ML 100 MG IV (01:59)
[2021-10-19] MEDS: heparin 5,000 unit/mL INJ 1 mL 5000 UNIT SUBCUT ×2 (02:00→15:37)
[2021-10-19 04:00] VITALS: BP 154/64; PULSE 91; RESP 16; TEMP 36.5; O2SAT 94
[2021-10-19 06:54] LABS: Glucose Point of Care 171 mg/dL (70-110)
[2021-10-19 08:00] VITALS: BP 173/75; PULSE 101; RESP 19; TEMP 37.2; O2SAT 92
[2021-10-19] MEDS: gabapentin 300 mg Capsule PO (09:20)
[2021-10-19] MEDS: tamsulosin 0.4 mg Capsule PO (09:21)
[2021-10-19] MEDS: insulin lispro 100 unit/1 mL SUBCUT ×3 (09:21→21:37)
[2021-10-19] MEDS: ferrous gluconate 324 mg Tablet PO ×2 (09:21→17:45)
[2021-10-19] MEDS: aspirin 81 mg EC Tablet PO (09:21)
[2021-10-19] MEDS: risperiDONE 0.25 mg Tablet PO (09:21)
[2021-10-19] MEDS: docusate sodium 100 mg Capsule PO ×2 (09:21→17:45)
--- NOTE | 2021-10-19 14:44 | PM.PN ---
Subjective Subjective: Patient seen slumped over in a chair. She answered no to all my questions. I do not think there was understanding. Vitals/I&O/Wt Last Vital Signs Temp 98.9 F 10/19/21 08:00 Pulse 101 H 10/19/21 08:00 Resp 19 H 10/19/21 08:00 BP 173/75 10/19/21 08:00 Pulse Ox 92 10/19/21 08:00 O2 Del Method 10/18/21 15:16 10/18/21 10/19/21 10/19/21 22:59 06:59 14:59 Intake Total 120 / 600 50 / 650 Balance 120 / 600 50 / 650 Physical Exam Narrative: Patient was seen sitting in chair. She was in no acute distress at time of exam Heart: Regular normal S1-S2 without murmurs clicks gallops or rubs Lungs clear to auscultation without wheezes rales or rhonchi Abdomen soft nontender nondistended positive bowel sounds Extremities no clubbing cyanosis or edema. Urinary Catheter Management: Darling: Cath Placed During This Visit: yes, but has since been removed by the nurse Reason for Continuing Indwelling Catheter: Decision to DC Catheter Urinary Catheter Date of Insertion: 10/10/21 Urinary Catheter Time of Insertion: 00:45 Date Urinary Catheter Removed: 10/11/21 Time Urinary Catheter Discontinued: 12:31 Data : 10/17/21 05:17 10/17/21 05:17 A&P Assessment and plan (1) E coli bacteremia: E. coli bacteremia/Streptococcus bacteremia: Gram-negative bacteremia most likely secondary to UTI. Repeat blood cultures on 10/12 negative. Continue with IV ceftriaxone which will cover for both E. coli and Streptococcus. Newer studies recommend 7-10 days of treatment. Pt has had 10 days. Will d/c rocephin. Status: Resolved (2) Bacteremia due to Streptococcus: Status: Resolved (3) UTI (urinary tract infection): as above Status: Acute (4) Weakness: All I can find is pt has been total care and not interactive since her COVID booster over 1 year ago. I stopped risperidone. Start depakote 500 mg tid aricept 10 mg at night and ritalin 10 mg in am to help cognitive function Status: Acute (5) Normocytic anemia: Status: Acute (6) Hyponatremia: Acute on chronic hyponatremia: Resolved. Most likely secondary dehydration. Status: Chronic (7) COPD (chronic obstructive pulmonary disease): on albuterol inhaler prn Status: Chronic (8) Dehydration: Pt has received IV fluids and now resolved. Status: Resolved (9) Deficit in activities of daily living (ADL): Failure to thrive/inability to take care of her ADL See above under weakness Status: Acute Plan Analgesia: tylenol prn Glycemic control: Insulin sliding scale at low-dose protocol Nutrition: Carb consistent diet CODE STATUS: Full code PUD prophylaxis: not indicated, not home med DVT prophylaxis: Heparin 5000 every 12 hourly Discharge planning: Plan to discharge to SNF or NH This documentation was created by [employer] mixer machine feeder software. Every effort was made to ensure accuracy of mixer machine feeder. Any obvious errors or omissions should be clarified with the author of the document. Attestations Medical Necessity Statement*: Patient is unable to care for self and family unable to care for patient. Awaiting new placement. Coding Level of Care Code Acute Chainstitch Hemmer for g Fwd Diagnoses E coli bacteremia R78.81; B96.20 Bacteremia due to Streptococcus R78.81; B95.5 UTI (urinary tract infection) N39.0 Weakness R53.1 Normocytic anemia D64.9 Hyponatremia E87.1 COPD (chronic obstructive pulmonary disease) J44.9 Dehydration E86.0 Deficit in activities of daily living (ADL) Z78.9
[2021-10-19] MEDS: divalproex DR 500 mg Tablet PO ×2 (15:37→21:37)
[2021-10-19 17:11] VITALS: BP 171/92; PULSE 101; RESP 17; TEMP 36.8; O2SAT 94
[2021-10-19 17:39] LABS: Glucose Point of Care 270 mg/dL (70-110)
[2021-10-19 19:40] VITALS: BP 154/77; PULSE 99; RESP 17; TEMP 37.1; O2SAT 95
[2021-10-19 20:16] LABS: Glucose Point of Care 211 mg/dL (70-110)
[2021-10-19] MEDS: atorvastatin 40 mg Tablet 20 MG PO (21:37)
[2021-10-19] MEDS: donepezil 5 MG Tablet 10 MG PO (21:37)
[2021-10-20] VITALS: BP 146/70; PULSE 89; RESP 18; TEMP 36.9; O2SAT 93
[2021-10-20] MEDS: heparin 5,000 unit/mL INJ 1 mL 5000 UNIT SUBCUT (01:57)
[2021-10-20 04:00] VITALS: BP 140/64; PULSE 83; RESP 17; TEMP 36.8; O2SAT 96
[2021-10-20 06:23] LABS: Glucose Point of Care 127 mg/dL (70-110)
[2021-10-20 08:00] VITALS: BP 122/65; PULSE 88; RESP 18; TEMP 36.6; O2SAT 96
[2021-10-20] MEDS: ferrous gluconate 324 mg Tablet PO ×2 (09:02→18:13)
[2021-10-20] MEDS: aspirin 81 mg EC Tablet PO (09:03)
[2021-10-20] MEDS: divalproex DR 500 mg Tablet PO ×3 (09:03→20:45)
[2021-10-20] MEDS: tamsulosin 0.4 mg Capsule PO (09:03)
[2021-10-20] MEDS: methylphenidate 10 mg Tablet PO (09:03)
[2021-10-20] MEDS: docusate sodium 100 mg Capsule PO ×2 (09:03→18:12)
[2021-10-20 11:47] LABS: Glucose Point of Care 351 mg/dL (70-110)
[2021-10-20 12:00] VITALS: BP 129/66; PULSE 100; RESP 17; TEMP 36.7
[2021-10-20] MEDS: insulin lispro 100 unit/1 mL SUBCUT ×3 (12:17→20:47)
--- NOTE | 2021-10-20 13:10 | PC.SOCIAL ---
IMM Updated Updated pt on IMM. No questions voiced. Provided pt a copy. Initialed, dated, & timed copy in chart.
[2021-10-20 15:45] VITALS: BP 130/67; PULSE 93; RESP 17; TEMP 36.2; O2SAT 96
[2021-10-20 17:21] LABS: Glucose Point of Care 194 mg/dL (70-110)
--- NOTE | 2021-10-20 17:56 | PM.PN ---
Subjective Subjective: After receiving Ritalin dose this morning patient is alert and awake. She is very talkative, somewhat on the negative side. But still confused. Vitals/I&O/Wt Last Vital Signs Temp 97.2 F L 10/20/21 15:45 Pulse 93 10/20/21 15:45 Resp 17 10/20/21 15:45 BP 130/67 10/20/21 15:45 Pulse Ox 96 10/20/21 15:45 O2 Del Method 10/18/21 15:16 10/20/21 10/20/21 10/20/21 06:59 14:59 22:59 Intake Total 360 / 360 Balance 360 / 360 Physical Exam Narrative: Patient was seen sitting in chair. She is awake today. she was in no acute distress at time of exam Heart: Regular normal S1-S2 without murmurs clicks gallops or rubs Lungs clear to auscultation without wheezes rales or rhonchi Abdomen soft nontender nondistended positive bowel sounds Extremities no clubbing cyanosis or edema. Urinary Catheter Management: Darling: Cath Placed During This Visit: yes, but has since been removed by the nurse Reason for Continuing Indwelling Catheter: Decision to DC Catheter Urinary Catheter Date of Insertion: 10/10/21 Urinary Catheter Time of Insertion: 00:45 Date Urinary Catheter Removed: 10/11/21 Time Urinary Catheter Discontinued: 12:31 Data : 10/17/21 05:17 10/17/21 05:17 A&P Assessment and plan (1) E coli bacteremia: E. coli bacteremia/Streptococcus bacteremia: Gram-negative bacteremia most likely secondary to UTI. Repeat blood cultures on 10/12 negative. Treated with ceftriaxone for 10 days of treatment. Status: Resolved (2) Bacteremia due to Streptococcus: Status: Resolved (3) UTI (urinary tract infection): as above Status: Acute (4) Weakness: All I can find is pt has been total care and not interactive since her COVID booster over 1 year ago. I stopped risperidone. On depakote 500 mg tid, aricept 10 mg at night. She received Ritalin 10 mg this morning and she was much improved. Physical therapy thanked me because she was much more able to participate. However, patient was somewhat difficult to manage emotionally and behaviorally. I will try a lower dose of Ritalin 5 mg in a.m. Status: Acute (5) Normocytic anemia: Stable in the 10 g range. No labs since 10/17 Status: Acute (6) Hyponatremia: Acute on chronic hyponatremia: Resolved. On October 17, 2021 patient's result was 136. Status: Chronic (7) COPD (chronic obstructive pulmonary disease): on albuterol inhaler prn Status: Chronic (8) Dehydration: Pt has received IV fluids and now resolved. Status: Resolved (9) Deficit in activities of daily living (ADL): Failure to thrive/inability to take care of her ADL See above under weakness Status: Acute Plan Analgesia: tylenol prn Glycemic control: Insulin sliding scale at low-dose protocol Nutrition: Carb consistent diet CODE STATUS: Full code PUD prophylaxis: not indicated, not home med DVT prophylaxis: Heparin 5000 every 12 hourly Discharge planning: Plan to discharge to SNF or NH This documentation was created by [employer] chief safety officer software. Every effort was made to ensure accuracy of chief safety officer. Any obvious errors or omissions should be clarified with the author of the document. Attestations Medical Necessity Statement*: Patient is unable to care for self and family unable to care for patient. Awaiting new placement. Coding Level of Care Code Acute Hearing Therapy Teacher for g Fwd Diagnoses E coli bacteremia R78.81; B96.20 Bacteremia due to Streptococcus R78.81; B95.5 UTI (urinary tract infection) N39.0 Weakness R53.1 Normocytic anemia D64.9 Hyponatremia E87.1 COPD (chronic obstructive pulmonary disease) J44.9 Dehydration E86.0 Deficit in activities of daily living (ADL) Z78.9
[2021-10-20 19:26] VITALS: BP 130/53; PULSE 106; RESP 18; TEMP 36.8; O2SAT 96
[2021-10-20 20:34] LABS: Glucose Point of Care 264 mg/dL (70-110)
[2021-10-20] MEDS: donepezil 5 MG Tablet 10 MG PO (20:44)
[2021-10-20] MEDS: atorvastatin 40 mg Tablet 20 MG PO (20:44)
[2021-10-21] VITALS: BP 136/58; PULSE 99; RESP 18; TEMP 36.7; O2SAT 95
[2021-10-21] MEDS: heparin 5,000 unit/mL INJ 1 mL 5000 UNIT SUBCUT ×2 (01:58→15:54)
[2021-10-21 04:00] VITALS: BP 159/72; PULSE 111; RESP 20; TEMP 36.8; O2SAT 90
[2021-10-21 06:25] LABS: Glucose Point of Care 195 mg/dL (70-110)
[2021-10-21 08:00] VITALS: BP 136/72; PULSE 113; RESP 17; TEMP 37.2; O2SAT 94
[2021-10-21] MEDS: methylphenidate 10 mg Tablet 5 MG PO (08:49)
[2021-10-21] MEDS: divalproex DR 500 mg Tablet PO ×3 (08:49→20:59)
[2021-10-21] MEDS: insulin lispro 100 unit/1 mL SUBCUT ×3 (08:49→21:59)
[2021-10-21] MEDS: docusate sodium 100 mg Capsule PO ×2 (08:50→18:36)
[2021-10-21] MEDS: ferrous gluconate 324 mg Tablet PO (08:50)
[2021-10-21] MEDS: tamsulosin 0.4 mg Capsule PO (08:50)
[2021-10-21] MEDS: aspirin 81 mg EC Tablet PO (08:50)
[2021-10-21 12:00] VITALS: BP 158/66; PULSE 95; RESP 16; TEMP 36.9; O2SAT 97
[2021-10-21 13:07] LABS: Glucose Point of Care 277 mg/dL (70-110)
[2021-10-21] MEDS: acyclovir 800 mg Tablet PO ×3 (15:55→21:42)
[2021-10-21 16:00] VITALS: BP 135/77; PULSE 101; RESP 16; TEMP 36.8; O2SAT 97
[2021-10-21 17:29] LABS: Glucose Point of Care 225 mg/dL (70-110)
--- NOTE | 2021-10-21 17:43 | PM.PN ---
Subjective Subjective: After receiving lower dose of Ritalin this morning patient is still alert and awake. She does not seem to be confused. She was able to tell me where she was and why today. Vitals/I&O/Wt Last Vital Signs Temp 98.3 F 10/21/21 16:00 Pulse 101 H 10/21/21 16:00 Resp 16 10/21/21 16:00 BP 135/77 10/21/21 16:00 Pulse Ox 97 10/21/21 16:00 O2 Del Method 10/21/21 16:00 10/21/21 10/21/21 10/21/21 06:59 14:59 22:59 Intake Total 480 / 480 Balance 480 / 480 Physical Exam Narrative: Patient was seen while physical therapist in the room. She is awake today. she was in no acute distress at time of exam she was somewhat hesitant to follow therapy's instructions. With some encouragement she really tried to move. She was able to sit on the edge of the bed but was very weak and needed assistance. Heart: Regular normal S1-S2 without murmurs clicks gallops or rubs Lungs clear to auscultation without wheezes rales or rhonchi Abdomen soft nontender nondistended positive bowel sounds Extremities no clubbing cyanosis or edema. Skin right lateral hip showed a pustular rash that is starting to itch and hurt the patient. Urinary Catheter Management: Darling: Cath Placed During This Visit: yes, but has since been removed by the nurse Reason for Continuing Indwelling Catheter: Decision to DC Catheter Urinary Catheter Date of Insertion: 10/10/21 Urinary Catheter Time of Insertion: 00:45 Date Urinary Catheter Removed: 10/11/21 Time Urinary Catheter Discontinued: 12:31 Data : 10/17/21 05:17 10/17/21 05:17 A&P Assessment and plan (1) E coli bacteremia: E. coli bacteremia/Streptococcus bacteremia: Gram-negative bacteremia most likely secondary to UTI. Repeat blood cultures on 10/12 negative. Treated with ceftriaxone for 10 days of treatment. Status: Resolved (2) Bacteremia due to Streptococcus: Status: Resolved (3) UTI (urinary tract infection): as above Status: Acute (4) Weakness: All I can find is pt has been total care and not interactive since her COVID booster over 1 year ago. I stopped risperidone. On depakote 500 mg tid, aricept 10 mg at night. She received Ritalin 10 mg this morning and she was much improved. Physical therapy thanked me because she was much more able to participate. However, patient was somewhat difficult to manage emotionally and behaviorally. I will try a lower dose of Ritalin 5 mg in a.m. Status: Acute (5) Normocytic anemia: Stable in the 10 g range. No labs since 10/17 Status: Acute (6) Hyponatremia: Acute on chronic hyponatremia: Resolved. On October 17, 2021 patient's result was 136. Status: Chronic (7) COPD (chronic obstructive pulmonary disease): on albuterol inhaler prn Status: Chronic (8) Dehydration: Pt has received IV fluids and now resolved. Status: Resolved (9) Deficit in activities of daily living (ADL): Failure to thrive/inability to take care of her ADL See above under weakness Status: Acute (10) Thigh shingles: Prescribe acyclovir 800 mg 5 times a day for 10 days. Note patient said she had shingles vaccine., Status: Acute Plan Analgesia: tylenol prn Glycemic control: Insulin sliding scale at low-dose protocol Nutrition: Carb consistent diet CODE STATUS: Full code PUD prophylaxis: not indicated, not home med DVT prophylaxis: Heparin 5000 every 12 hourly Discharge planning: Plan to discharge to SNF or NH This documentation was created by [employer] dry kiln operator helper software. Every effort was made to ensure accuracy of dry kiln operator helper. Any obvious errors or omissions should be clarified with the author of the document. Attestations Medical Necessity Statement*: Patient is unable to care for self and family unable to care for patient. Awaiting new placement. Coding Level of Care Code Acute Art Coordinator for g Fwd Diagnoses E coli bacteremia R78.81; B96.20 Bacteremia due to Streptococcus R78.81; B95.5 UTI (urinary tract infection) N39.0 Weakness R53.1 Normocytic anemia D64.9 Hyponatremia E87.1 COPD (chronic obstructive pulmonary disease) J44.9 Dehydration E86.0 Deficit in activities of daily living (ADL) Z78.9 Thigh shingles B02.9
[2021-10-21 20:00] VITALS: BP 140/87; PULSE 99; RESP 20; TEMP 36.8; O2SAT 97
[2021-10-21] MEDS: atorvastatin 40 mg Tablet 20 MG PO (20:58)
[2021-10-21] MEDS: donepezil 5 MG Tablet 10 MG PO (20:59)
[2021-10-21 21:41] LABS: Glucose Point of Care 228 mg/dL (70-110)
[2021-10-22] VITALS: BP 152/72; PULSE 93; RESP 17; TEMP 36.7; O2SAT 100
[2021-10-22] MEDS: heparin 5,000 unit/mL INJ 1 mL 5000 UNIT SUBCUT ×2 (02:16→14:18)
[2021-10-22 05:38] VITALS: BP 156/65; PULSE 93; RESP 17; TEMP 36.3; O2SAT 98
[2021-10-22 06:21] LABS: Glucose Point of Care 147 mg/dL (70-110)
[2021-10-22] MEDS: acyclovir 800 mg Tablet PO ×5 (06:35→21:24)
[2021-10-22 07:52] VITALS: BP 151/67; PULSE 96; RESP 16; TEMP 36.9; O2SAT 94
--- NOTE | 2021-10-22 08:57 | PC.SOCIAL ---
IMM updated Copy of page 2 provided to pt at bedside. Patient verbalized understanding. Initialed, dated, & timed a copy & placed in chart
[2021-10-22] MEDS: aspirin 81 mg EC Tablet PO (09:32)
[2021-10-22] MEDS: tamsulosin 0.4 mg Capsule PO (09:33)
[2021-10-22] MEDS: ferrous gluconate 324 mg Tablet PO ×2 (09:33→18:41)
[2021-10-22] MEDS: divalproex DR 500 mg Tablet PO ×3 (09:33→21:24)
[2021-10-22] MEDS: docusate sodium 100 mg Capsule PO ×2 (09:33→18:40)
[2021-10-22] MEDS: methylphenidate 10 mg Tablet 5 MG PO (09:34)
[2021-10-22] MEDS: insulin lispro 100 unit/1 mL SUBCUT ×3 (09:34→21:52)
[2021-10-22 11:10] LABS: Glucose Point of Care 183 mg/dL (70-110)
[2021-10-22 11:21] VITALS: BP 132/65; PULSE 114; RESP 18; TEMP 36.7; O2SAT 97
--- NOTE | 2021-10-22 14:17 | P.PN_ITS ---
Subjective Subjective: Improved pain and itching of right hip from shingles. Vitals/I&O/Wt Last Vital Signs Temp 98.0 F 10/22/21 11:21 Pulse 114 H 10/22/21 11:21 Resp 18 10/22/21 11:21 BP 132/65 10/22/21 11:21 Pulse Ox 97 10/22/21 11:21 O2 Del Method 10/22/21 11:21 10/21/21 10/22/21 10/22/21 22:59 06:59 14:59 Intake Total 720 / 1200 200 / 1400 240 / 240 Balance 720 / 1200 200 / 1400 240 / 240 Physical Exam Narrative: Patient was seen while physical therapist in the room. She remains awake. NAD, with some encouragement she really tried to move. Heart: Regular normal S1-S2 without murmurs clicks gallops or rubs Lungs clear to auscultation without wheezes rales or rhonchi Abdomen soft nontender nondistended positive bowel sounds Extremities no clubbing cyanosis or edema. Skin right lateral hip showed a pustular rash Urinary Catheter Management: Darling: Cath Placed During This Visit: yes, but has since been removed by the nurse Reason for Continuing Indwelling Catheter: Decision to DC Catheter Urinary Catheter Date of Insertion: 10/10/21 Urinary Catheter Time of Insertion: 00:45 Date Urinary Catheter Removed: 10/11/21 Time Urinary Catheter Discontinued: 12:31 Data : 10/17/21 05:17 10/17/21 05:17 A&P Assessment and plan (1) E coli bacteremia: E. coli bacteremia/Streptococcus bacteremia: Gram-negative bacteremia most likely secondary to UTI. Repeat blood cultures on 10/12 negative. Treated with ceftriaxone for 10 days of treatment. Status: Resolved (2) Bacteremia due to Streptococcus: Status: Resolved (3) UTI (urinary tract infection): as above Status: Acute (4) Weakness: All I can find is pt has been total care and not interactive since her COVID booster over 1 year ago. I stopped risperidone. On depakote 500 mg tid, aricept 10 mg at night , and low-dose Ritalin 5 mg. Her alertness and interaction is much improved. She is now able to participate with physical therapy. Status: Acute (5) Normocytic anemia: Stable in the 10 g range. No labs since 8/14 Status: Acute (6) Hyponatremia: Acute on chronic hyponatremia: Resolved. On October 17, 2021 patient's result was 136. Status: Chronic (7) COPD (chronic obstructive pulmonary disease): on albuterol inhaler prn Status: Chronic (8) Dehydration: Status: Resolved (9) Deficit in activities of daily living (ADL): Failure to thrive/inability to take care of her ADL See above under weakness Status: Acute (10) Thigh shingles: Prescribe acyclovir 800 mg 5 times a day for 10 days. Note patient said she had shingles vaccine., Status: Acute Plan Analgesia: tylenol prn Glycemic control: Insulin sliding scale at low-dose protocol Nutrition: Carb consistent diet CODE STATUS: Full code PUD prophylaxis: not indicated, not home med DVT prophylaxis: Heparin 5000 every 12 hourly Discharge planning: Plan to discharge to SNF This documentation was created by [employer] loss prevention auditor software. Every effort was made to ensure accuracy of loss prevention auditor. Any obvious errors or omissions should be clarified with the author of the document. Attestations Medical Necessity Statement*: Patient is unable to care for self and family unable to care for patient. Awaiting new placement. Coding Level of Care Code Acute Cutter Grind Tool Technician for g Fwd Diagnoses E coli bacteremia R78.81; B96.20 Bacteremia due to Streptococcus R78.81; B95.5 UTI (urinary tract infection) N39.0 Weakness R53.1 Normocytic anemia D64.9 Hyponatremia E87.1 COPD (chronic obstructive pulmonary disease) J44.9 Dehydration E86.0 Deficit in activities of daily living (ADL) Z78.9 Thigh shingles B02.9
[2021-10-22 16:00] VITALS: BP 134/74; PULSE 95; RESP 16; TEMP 36.5; O2SAT 96
[2021-10-22 17:05] LABS: Glucose Point of Care 115 mg/dL (70-110)
[2021-10-22 20:00] VITALS: BP 147/77; PULSE 90; RESP 18; TEMP 36.3; O2SAT 94
[2021-10-22] MEDS: atorvastatin 40 mg Tablet 20 MG PO (21:23)
[2021-10-22] MEDS: donepezil 5 MG Tablet 10 MG PO (21:24)
[2021-10-23] VITALS: BP 149/71; PULSE 93; RESP 17; TEMP 36.3; O2SAT 95
[2021-10-23] MEDS: heparin 5,000 unit/mL INJ 1 mL 5000 UNIT SUBCUT ×2 (02:20→18:04)
[2021-10-23 04:00] VITALS: BP 160/77; PULSE 88; RESP 16; TEMP 36.7; O2SAT 96
[2021-10-23] MEDS: acyclovir 800 mg Tablet PO ×4 (05:14→21:48)
[2021-10-23 06:49] LABS: Glucose Point of Care 136 mg/dL (70-110)
[2021-10-23 08:00] VITALS: BP 159/68; PULSE 96; RESP 16; TEMP 36.9; O2SAT 93
[2021-10-23] MEDS: aspirin 81 mg EC Tablet PO (09:15)
[2021-10-23] MEDS: tamsulosin 0.4 mg Capsule PO (09:15)
[2021-10-23] MEDS: methylphenidate 10 mg Tablet 5 MG PO (09:15)
[2021-10-23] MEDS: docusate sodium 100 mg Capsule PO ×2 (09:15→18:03)
[2021-10-23] MEDS: ferrous gluconate 324 mg Tablet PO ×2 (09:16→18:04)
[2021-10-23] MEDS: divalproex DR 500 mg Tablet PO ×3 (09:16→20:39)
[2021-10-23 12:00] VITALS: BP 161/79; PULSE 100; RESP 16; TEMP 36.7; O2SAT 95
[2021-10-23 12:20] LABS: Glucose Point of Care 197 mg/dL (70-110)
[2021-10-23] MEDS: insulin lispro 100 unit/1 mL SUBCUT ×3 (12:20→21:48)
[2021-10-23 16:00] VITALS: BP 144/79; PULSE 91; RESP 16; TEMP 36.9; O2SAT 95
[2021-10-23 17:00] LABS: Glucose Point of Care 178 mg/dL (70-110)
--- NOTE | 2021-10-23 18:50 | P.PN_ITS ---
Subjective Subjective: With family present at bedside. Her brother with whom she lives was present. There was a and and daughter that her distant relatives visiting from [place]. They are close to patient and usually visit once a year. They were inquiring if the patient had to go to a penitentiary or had to stay in the hospital. I explained now that she was medically stable could go home. I explained that the current decision maker which turns out to be a close personal friend and colleague has decided she would need to be placed in a penitentiary. Vitals/I&O/Wt Last Vital Signs Temp 98.4 F 10/23/21 16:00 Pulse 91 10/23/21 16:00 Resp 16 10/23/21 16:00 BP 144/79 10/23/21 16:00 Pulse Ox 95 10/23/21 16:00 O2 Del Method 10/23/21 16:00 10/23/21 10/23/21 10/23/21 06:59 14:59 22:59 Intake Total 360 / 360 240 / 600 Output Total 0 / 0 Balance 0 / 240 360 / 360 240 / 600 Physical Exam Narrative: She remains awake. NAD, Heart: Regular normal S1-S2 without murmurs clicks gallops or rubs Lungs clear to auscultation without wheezes rales or rhonchi Abdomen soft nontender nondistended positive bowel sounds Extremities no clubbing cyanosis or edema. Skin right lateral hip showed a pustular rash Urinary Catheter Management: Darling: Cath Placed During This Visit: yes, but has since been removed by the nurse Reason for Continuing Indwelling Catheter: Decision to DC Catheter Urinary Catheter Date of Insertion: 10/10/21 Urinary Catheter Time of Insertion: 00:45 Date Urinary Catheter Removed: 10/11/21 Time Urinary Catheter Discontinued: 12:31 Data : 10/17/21 05:17 10/17/21 05:17 A&P Assessment and plan (1) E coli bacteremia: E. coli bacteremia/Streptococcus bacteremia: Gram-negative bacteremia most likely secondary to UTI. Repeat blood cultures on 10/12 negative. Treated with ceftriaxone for 10 days of treatment. Status: Resolved (2) Bacteremia due to Streptococcus: Status: Resolved (3) UTI (urinary tract infection): as above Status: Acute (4) Weakness: All I can find is pt has been total care and not interactive since her COVID booster over 1 year ago. I stopped risperidone. On depakote 500 mg tid, aricept 10 mg at night , and low-dose Ritalin 5 mg. Her alertness and interaction is much improved. She is now able to participate with physical therapy. Status: Acute (5) Normocytic anemia: Stable in the 10 g range. No labs since 10/17 Status: Acute (6) Hyponatremia: Acute on chronic hyponatremia: Resolved. On October 17, 2021 patient's result was 136. Status: Chronic (7) COPD (chronic obstructive pulmonary disease): on albuterol inhaler prn Status: Chronic (8) Dehydration: Status: Resolved (9) Deficit in activities of daily living (ADL): Failure to thrive/inability to take care of her ADL See above under weakness Status: Acute (10) Thigh shingles: Prescribe acyclovir 800 mg 5 times a day for 10 days. Note patient said she had shingles vaccine., Status: Acute Plan Analgesia: tylenol prn Glycemic control: Insulin sliding scale at low-dose protocol Nutrition: Carb consistent diet CODE STATUS: Full code PUD prophylaxis: not indicated, not home med DVT prophylaxis: Heparin 5000 every 12 hourly Discharge planning: Plan to discharge to SNF This documentation was created by [facility] infrastructure project manager software. Every effort was made to ensure accuracy of infrastructure project manager. Any obvious errors or omissions should be clarified with the author of the document. Attestations Medical Necessity Statement*: Patient is unable to care for self and family unable to care for patient. Awaiting new placement. Coding Level of Care Code Acute Wellness Director for [facility] Fwd Diagnoses E coli bacteremia R78.81; B96.20 Bacteremia due to Streptococcus R78.81; B95.5 UTI (urinary tract infection) N39.0 Weakness R53.1 Normocytic anemia D64.9 Hyponatremia E87.1 COPD (chronic obstructive pulmonary disease) J44.9 Dehydration E86.0 Deficit in activities of daily living (ADL) Z78.9 Thigh shingles B02.9
[2021-10-23 20:00] VITALS: BP 153/73; PULSE 96; RESP 16; TEMP 36.5; O2SAT 94
[2021-10-23] MEDS: atorvastatin 40 mg Tablet 20 MG PO (20:39)
[2021-10-23] MEDS: donepezil 5 MG Tablet 10 MG PO (20:39)
[2021-10-23 21:45] LABS: Glucose Point of Care 189 mg/dL (70-110)
[2021-10-24] VITALS (7 sets, daily range): BP systolic 115–178; BP diastolic 65–87; PULSE 85–109; RESP 16–18; TEMP 36.5–36.9; O2SAT 94–97
[2021-10-24] MEDS: heparin 5,000 unit/mL INJ 1 mL 5000 UNIT SUBCUT ×2 (01:46→12:37)
[2021-10-24] MEDS: acyclovir 800 mg Tablet PO ×5 (05:33→20:50)
[2021-10-24 06:44] LABS: Glucose Point of Care 133 mg/dL (70-110)
--- NOTE | 2021-10-24 09:15 | PC.SOCIAL ---
IMM Updated Updated pt on IMM. No questions voiced. Provided pt a copy. Initialed, dated, & timed copy in chart.
[2021-10-24] MEDS: tamsulosin 0.4 mg Capsule PO (09:39)
[2021-10-24] MEDS: methylphenidate 10 mg Tablet 5 MG PO (09:39)
[2021-10-24] MEDS: divalproex DR 500 mg Tablet PO ×3 (09:40→20:49)
[2021-10-24] MEDS: docusate sodium 100 mg Capsule PO ×2 (09:41→18:37)
[2021-10-24] MEDS: ferrous gluconate 324 mg Tablet PO ×2 (09:41→19:02)
[2021-10-24] MEDS: aspirin 81 mg EC Tablet PO (09:41)
[2021-10-24 11:23] LABS: Glucose Point of Care 274 mg/dL (70-110)
[2021-10-24] MEDS: insulin lispro 100 unit/1 mL SUBCUT (12:39)
--- NOTE | 2021-10-24 16:58 | P.PN_ITS ---
Subjective Subjective: I rounded late in the afternoon today. Patient is almost catatonic. Is very effective for the morning we will need a second dose. Vitals/I&O/Wt Last Vital Signs Temp 98.1 F 10/24/21 15:39 Pulse 95 10/24/21 15:39 Resp 16 10/24/21 15:39 BP 131/77 10/24/21 15:39 Pulse Ox 95 10/24/21 15:39 O2 Del Method 10/24/21 15:39 10/24/21 10/24/21 10/24/21 06:59 14:59 22:59 Intake Total 200 / 800 600 / 600 Balance 200 / 800 600 / 600 Physical Exam Narrative: Catatonic nonverbal NAD, Heart: Regular normal S1-S2 without murmurs clicks gallops or rubs Lungs clear to auscultation without wheezes rales or rhonchi Abdomen soft nontender nondistended positive bowel sounds Extremities no clubbing cyanosis or edema. Skin only 1 pustule identified on right hip today. She must be scratching at this area because now there is multiple reddened areas. She is also scratching the left hip as well. Urinary Catheter Management: Darling: Cath Placed During This Visit: yes, but has since been removed by the nurse Reason for Continuing Indwelling Catheter: Decision to DC Catheter Urinary Catheter Date of Insertion: 10/10/21 Urinary Catheter Time of Insertion: 00:45 Date Urinary Catheter Removed: 10/11/21 Time Urinary Catheter Discontinued: 12:31 Data : 10/17/21 05:17 10/17/21 05:17 A&P Assessment and plan (1) E coli bacteremia: E. coli bacteremia/Streptococcus bacteremia: Gram-negative bacteremia most likely secondary to UTI. Repeat blood cultures on 10/12 negative. Treated with ceftriaxone for 10 days of treatment. Status: Resolved (2) Bacteremia due to Streptococcus: Status: Resolved (3) UTI (urinary tract infection): as above Status: Acute (4) Weakness: All I can find is pt has been total care and not interactive since her COVID booster over 1 year ago. I stopped risperidone. On depakote 500 mg tid, aricept 10 mg at night , and low-dose Ritalin 5 mg. Her alertness and interaction is much improved. She is now able to participate with physical therapy. Status: Acute (5) Normocytic anemia: Stable in the 10 g range. No labs since 10/17 Status: Acute (6) Hyponatremia: Acute on chronic hyponatremia: Resolved. On October 17, 2021 patient's result was 136. Status: Chronic (7) COPD (chronic obstructive pulmonary disease): on albuterol inhaler prn Status: Chronic (8) Dehydration: Status: Resolved (9) Deficit in activities of daily living (ADL): Failure to thrive/inability to take care of her ADL See above under weakness Status: Acute (10) Thigh shingles: Prescribe acyclovir 800 mg 5 times a day for 10 days. Note patient said she had shingles vaccine., Status: Acute Plan Discussed with case management today. She completed her course of IV antibiotics-new recommendations are for 10 days. While taking Ritalin she is amendable to physical and Occupational Therapy. Hopefully she can still be skilled and then permanent placement. Please note there is family in [place] that was visiting this weekend and they made reference to assisting financially with a caregiver or even they talked about moving down to take care of her. Attestations Medical Necessity Statement*: Patient is unable to care for self and family unable to care for patient. Awaiting new placement. Coding Level of Care Code Acute Performance Specialist for [facility] Diagnoses E coli bacteremia R78.81; B96.20 Bacteremia due to Streptococcus R78.81; B95.5 UTI (urinary tract infection) N39.0 Weakness R53.1 Normocytic anemia D64.9 Hyponatremia E87.1 COPD (chronic obstructive pulmonary disease) J44.9 Dehydration E86.0 Deficit in activities of daily living (ADL) Z78.9 Thigh shingles B02.9
[2021-10-24 17:14] LABS: Glucose Point of Care 101 mg/dL (70-110)
[2021-10-24 20:43] LABS: Glucose Point of Care 120 mg/dL (70-110)
[2021-10-24] MEDS: atorvastatin 40 mg Tablet 20 MG PO (20:47)
[2021-10-24] MEDS: donepezil 5 MG Tablet 10 MG PO (20:50)
[2021-10-25] MEDS: heparin 5,000 unit/mL INJ 1 mL 5000 UNIT SUBCUT ×2 (01:44→15:03)
[2021-10-25 04:00] VITALS: BP 148/72; PULSE 88; RESP 19; TEMP 36.8; O2SAT 94
[2021-10-25] MEDS: acyclovir 800 mg Tablet PO ×5 (05:17→20:36)
[2021-10-25 06:20] LABS: Basophils # 0.1 10^3/uL (0.0-0.1); Basophils % 0.6 %; Eosinophils # 0.3 10^3/uL (0.0-0.8); Eosinophils % 2.7 %; Hematocrit 32.7 % (37.0-47.0); Hemoglobin 10.7 g/dL (11.5-15.3); Lymphocytes % 41.2 %; Mean Corpuscular HGB Conc 32.7 g/dL (30.0-36.0); Mean Corpuscular Hemoglobin 30.3 pg (28.0-34.0); Mean Corpuscular Volume 92.6 fl (81-99); Mean Platelet Volume 8.9 fL (7.4-10.4); Monocytes # 0.7 10^3/uL (0.2-0.9); Monocytes % 7.6 %; Neutrophils # 4.56 10^3/uL (1.8-7.7); Neutrophils % 47.6 %; Nucleated Red Blood Cells % 0 %; Platelet Count 299 10^3/cmm (130-400); Red Blood Count 3.53 10^6/uL (4.1-5.3); Red Cell Distribution Width 15.9 % (12.1-15.1); White Blood Count 9.6 10^3/uL (4.0-10.0)
[2021-10-25 06:30] LABS: Glucose Point of Care 125 mg/dL (70-110)
[2021-10-25 06:50] LABS: Alanine Aminotransferase 10 U/L (0-33); Albumin Level 2.9 g/dL (3.5-5.2); Alkaline Phosphatase 54 U/L (35-105); Blood Urea Nitrogen 13 mg/dL (8-23); Calcium 8.5 mg/dL (8.5-10.5); Carbon Dioxide 26 mmol/L (22-29); Chloride 95 mmol/L (98-107); Creatinine Clr Calc Pharmacy 64.5477; Globulin 3.1 g/dL (1.3-4.6); Glucose 119 mg/dL (65-115); Osmolality Calculated 271 mOsm/kg (285-295); Sodium 130 mmol/L (136-145); Total Bilirubin 0.3 mg/dL (0.15-1.2)
[2021-10-25 06:53] LABS: Aspartate Amino Transferase 16 U/L (0-32)
[2021-10-25 08:00] VITALS: BP 145/79; PULSE 97; RESP 16; TEMP 37.1; O2SAT 95
[2021-10-25] MEDS: tamsulosin 0.4 mg Capsule PO (10:00)
[2021-10-25] MEDS: aspirin 81 mg EC Tablet PO (10:00)
[2021-10-25] MEDS: docusate sodium 100 mg Capsule PO ×2 (10:00→18:33)
[2021-10-25] MEDS: ferrous gluconate 324 mg Tablet PO ×2 (10:00→18:33)
[2021-10-25] MEDS: divalproex DR 500 mg Tablet PO ×3 (10:00→20:36)
[2021-10-25] MEDS: methylphenidate 10 mg Tablet 5 MG PO ×3 (11:10→20:36)
[2021-10-25 11:13] LABS: Glucose Point of Care 202 mg/dL (70-110)
[2021-10-25 12:00] VITALS: BP 160/78; PULSE 97; RESP 16; TEMP 36.7; O2SAT 95
[2021-10-25] MEDS: insulin lispro 100 unit/1 mL SUBCUT ×2 (12:36→22:10)
[2021-10-25 16:00] VITALS: BP 149/71; PULSE 93; RESP 17; TEMP 37.1; O2SAT 92
--- NOTE | 2021-10-25 16:14 | P.PN_ITS ---
Subjective Subjective: Hospital course, labs appreciated. No acute events. Patient denies any new complaints. Sitting up in chair on examination. Awake but drowsy. Vitals/I&O/Wt Last Vital Signs Temp 98.7 F 10/25/21 16:00 Pulse 93 10/25/21 16:00 Resp 17 10/25/21 16:00 BP 149/71 10/25/21 16:00 Pulse Ox 92 10/25/21 16:00 O2 Del Method 10/25/21 16:00 10/25/21 10/25/21 10/25/21 06:59 14:59 22:59 Intake Total 180 / 180 Balance 180 / 180 Physical Exam Narrative: General: Alert oriented x3, chronically ill-appearing,appearing comfortable at this time, HEENT: Normocephalic, atraumatic, EOMI Cardio: RRR, normal S1-S2, no murmurs Respiratory: CTA B/L GI: Abdomen soft, nontender, bowel sounds + Extremities: Trace b/l LE edema Urinary Catheter Management: Darling: Cath Placed During This Visit: yes, but has since been removed by the nurse Reason for Continuing Indwelling Catheter: Decision to DC Catheter Urinary Catheter Date of Insertion: 10/10/21 Urinary Catheter Time of Insertion: 00:45 Date Urinary Catheter Removed: 10/11/21 Time Urinary Catheter Discontinued: 12:31 Data : 10/25/21 06:10 10/25/21 06:10 A&P Assessment and plan (1) E coli bacteremia: Status: Resolved (2) Bacteremia due to Streptococcus: Status: Resolved (3) UTI (urinary tract infection): Status: Acute (4) Weakness: Started on Depakote 5 mg 3 times daily, Aricept 10 mg nightly, low-dose Ritalin 5 mg. As per the nursing staff patient does better with Ritalin. Increase frequency of Ritalin to 5 mg 3 times a day. We will continue to monitor. Physical therapy. Status: Acute (5) Normocytic anemia: Status: Acute (6) Hyponatremia: Status: Chronic (7) COPD (chronic obstructive pulmonary disease): Status: Chronic (8) Dehydration: Status: Resolved (9) Deficit in activities of daily living (ADL): Status: Acute (10) Thigh shingles: Status: Acute Plan 75 year old female with past medical history of COPD, diabetes, hyperlipidemia, hypertension presented to the hospital today for generalized weakness and after fall at home,currently being managed for. E. coli bacteremia/Streptococcus bacteremia: Patient has finished IV antibiotic course with ceftriaxone for overall 10 days. Has remained medically stable and afebrile. Failure to thrive/inability to take care of her ADLs. Acute on chronic hyponatremia: Resolved. Most likely secondary dehydration. Continue to monitor BMP daily for now. Type 2 diabetes mellitus: Start on insulin sliding scale at low-dose protocol. A1c 7.2 Shingles: Has not yet received vaccine. Started on acyclovir 800 mg 5 times a day on . Switch to oral valtrex 1 gm BID. Will finish 7-10 day course. Will monitor renal functions. Analgesia: Tylenol as needed Glycemic control: A1c 7.2. Insulin sliding scale at high-dose protocol Nutrition: Carb consistent diet CODE STATUS: Full code PUD prophylaxis: Famotidine DVT prophylaxis: Heparin 5000 every 12 hourly Discharge planning: Plan to discharge to SNF for further rehabilitation given deconditioning, failure to thrive, [facility] with care at [facility] This documentation was created by [employer] dry pan operator software. Every effort was made to ensure accuracy of dry pan operator. Any obvious errors or omissions should be clarified with the author of the document. Attestations Medical Necessity Statement*: Requires further hospitalization while placement is sought as patient is at high risk of fall, further deconditioning and failure to thrive Time Spent in Patient Care: 16 - 35 minutes Coding Level of Care Code Acute Chief Telephone Operator for [facility] Fwd Diagnoses E coli bacteremia R78.81; B96.20 Bacteremia due to Streptococcus R78.81; B95.5 UTI (urinary tract infection) N39.0 Weakness R53.1 Normocytic anemia D64.9 Hyponatremia E87.1 COPD (chronic obstructive pulmonary disease) J44.9 Dehydration E86.0 Deficit in activities of daily living (ADL) Z78.9 Thigh shingles B02.9
[2021-10-25 17:03] LABS: Glucose Point of Care 110 mg/dL (70-110)
[2021-10-25] MEDS: donepezil 5 MG Tablet 10 MG PO (20:36)
[2021-10-25] MEDS: atorvastatin 40 mg Tablet 20 MG PO (20:36)
[2021-10-25 21:15] VITALS: BP 185/75; PULSE 99; RESP 17; TEMP 37.4; O2SAT 93
[2021-10-25 21:18] LABS: Glucose Point of Care 146 mg/dL (70-110)
--- NOTE | 2021-10-25 22:43 | PC.NURSE ---
Patient oriented to person and place only. Bed alarm set.
[2021-10-26] VITALS: BP 162/75; PULSE 100; RESP 17; TEMP 37.2; O2SAT 93
[2021-10-26 04:00] VITALS: BP 131/81; PULSE 101; RESP 16; TEMP 37.4; O2SAT 97
[2021-10-26] MEDS: heparin 5,000 unit/mL INJ 1 mL 5000 UNIT SUBCUT ×2 (04:04→16:55)
--- NOTE | 2021-10-26 06:37 | PC.NURSE ---
Blood glucose 141 at this time.
[2021-10-26 06:41] LABS: Glucose Point of Care 141 mg/dL (70-110)
[2021-10-26 07:53] VITALS: BP 157/75; PULSE 102; RESP 18; TEMP 37.3; O2SAT 95
[2021-10-26] MEDS: docusate sodium 100 mg Capsule PO ×2 (09:13→16:55)
[2021-10-26] MEDS: ferrous gluconate 324 mg Tablet PO ×2 (09:13→16:55)
[2021-10-26] MEDS: aspirin 81 mg EC Tablet PO (09:13)
[2021-10-26] MEDS: tamsulosin 0.4 mg Capsule PO (09:13)
[2021-10-26] MEDS: divalproex DR 500 mg Tablet PO ×3 (09:13→20:36)
[2021-10-26] MEDS: valACYclovir 1,000 mg Tablet 1000 MG PO ×2 (09:15→16:55)
[2021-10-26] MEDS: methylphenidate 10 mg Tablet 5 MG PO (09:15)
[2021-10-26] MEDS: insulin lispro 100 unit/1 mL SUBCUT ×2 (09:21→12:59)
--- NOTE | 2021-10-26 11:11 | PC.SOCIAL ---
IMM update IMM updated with patient. Verbalized an understanding. Copy pg 2 provided. Initialled, dated, timed, and placed in chart.
[2021-10-26 11:18] LABS: Glucose Point of Care 156 mg/dL (70-110)
[2021-10-26 11:45] VITALS: BP 163/87; PULSE 109; RESP 18; TEMP 36.9; O2SAT 94
[2021-10-26 15:51] VITALS: BP 142/70; PULSE 102; RESP 18; TEMP 37.2; O2SAT 91
[2021-10-26 17:10] LABS: Glucose Point of Care 65 mg/dL (70-110)
--- NOTE | 2021-10-26 17:15 | P.PN_ITS ---
Subjective Subjective: No complaints overnight. No new complaints. Today morning examination patient found to have occasional jerking movements of the neck. Vitals/I&O/Wt Last Vital Signs Temp 99.0 F 10/26/21 15:51 Pulse 102 H 10/26/21 15:51 Resp 18 10/26/21 15:51 BP 142/70 10/26/21 15:51 Pulse Ox 91 10/26/21 15:51 O2 Del Method 10/26/21 15:51 10/26/21 10/26/21 10/26/21 06:59 14:59 22:59 Intake Total 360 / 360 Balance 360 / 360 Physical Exam Narrative: General: Alert oriented x3, chronically ill-appearing,appearing comfortable at this time, HEENT: Normocephalic, atraumatic, EOMI Cardio: RRR, normal S1-S2, no murmurs Respiratory: CTA B/L GI: Abdomen soft, nontender, bowel sounds + Extremities: Trace b/l LE edema Urinary Catheter Management: Darling: Cath Placed During This Visit: yes, but has since been removed by the nurse Reason for Continuing Indwelling Catheter: Decision to DC Catheter Urinary Catheter Date of Insertion: 10/10/21 Urinary Catheter Time of Insertion: 00:45 Date Urinary Catheter Removed: 10/11/21 Time Urinary Catheter Discontinued: 12:31 Data : 10/25/21 06:10 10/25/21 06:10 A&P Assessment and plan (1) E coli bacteremia: Status: Resolved (2) Bacteremia due to Streptococcus: Status: Resolved (3) UTI (urinary tract infection): Status: Acute (4) Weakness: Started on Depakote 5 mg 3 times daily, Aricept 10 mg nightly, low-dose Ritalin 5 mg. For possible dystonia we will stop Ritalin. Restart gabapentin at a lower dose of 100 mg 3 times daily. Start on tizanidine 2 mg 3 times daily. Status: Acute (5) Normocytic anemia: Status: Acute (6) Hyponatremia: Status: Chronic (7) COPD (chronic obstructive pulmonary disease): Status: Chronic (8) Dehydration: Status: Resolved (9) Deficit in activities of daily living (ADL): Status: Acute (10) Thigh shingles: Status: Acute Plan 75 year old female with past medical history of COPD, diabetes, hyperlipidemia, hypertension presented to the hospital today for generalized weakness and after fall at home,currently being managed for. E. coli bacteremia/Streptococcus bacteremia: Patient has finished IV antibiotic course with ceftriaxone for overall 10 days. Has remained medically stable and afebrile. Failure to thrive/inability to take care of her ADLs. Acute on chronic hyponatremia: Resolved. Most likely secondary dehydration. Continue to monitor BMP daily for now. Type 2 diabetes mellitus: Start on insulin sliding scale at low-dose protocol. A1c 7.2 Shingles: Has not yet received vaccine. Started on acyclovir 800 mg 5 times a day on . Switch to oral valtrex 1 gm BID. Will finish 7-10 day course. Will monitor renal functions. Analgesia: Tylenol as needed Glycemic control: A1c 7.2. Insulin sliding scale at high-dose protocol Nutrition: Carb consistent diet CODE STATUS: Full code PUD prophylaxis: Famotidine DVT prophylaxis: Heparin 5000 every 12 hourly Discharge planning: Plan to discharge to SNF for further rehabilitation given deconditioning, failure to thrive, Continue with care at [facility] This documentation was created by [employer] control panel builder software. Every effort was made to ensure accuracy of control panel builder. Any obvious errors or omissions should be clarified with the author of the document. Plan for today: Stop acyclovir. Switch to valacyclovir 1 g twice daily. Herpes simplex DNA. Stop Ritalin. Start on gabapentin milligrams 3 times daily, tizanidine 2 mg 3 times daily. Attestations Medical Necessity Statement*: Requires further hospitalization while safe discharge planning is sought. Time Spent in Patient Care: 16 - 35 minutes Coding Level of Care Code Acute Head Of Physics for [facility] Fwd Diagnoses E coli bacteremia R78.81; B96.20 Bacteremia due to Streptococcus R78.81; B95.5 UTI (urinary tract infection) N39.0 Weakness R53.1 Normocytic anemia D64.9 Hyponatremia E87.1 COPD (chronic obstructive pulmonary disease) J44.9 Dehydration E86.0 Deficit in activities of daily living (ADL) Z78.9 Thigh shingles B02.9
[2021-10-26 20:00] VITALS: BP 183/93; PULSE 105; RESP 18; TEMP 36.3; O2SAT 93
[2021-10-26] MEDS: donepezil 5 MG Tablet 10 MG PO (20:36)
[2021-10-26] MEDS: gabapentin 100 mg Capsule PO (20:36)
[2021-10-26] MEDS: atorvastatin 40 mg Tablet 20 MG PO (20:36)
[2021-10-26 20:40] LABS: Glucose Point of Care 182 mg/dL (70-110)
[2021-10-27] VITALS: BP 182/83; PULSE 107; RESP 22; TEMP 36.1; O2SAT 93
[2021-10-27] MEDS: heparin 5,000 unit/mL INJ 1 mL 5000 UNIT SUBCUT ×2 (01:36→18:26)
[2021-10-27 04:00] VITALS: BP 162/68; PULSE 103; RESP 22; TEMP 36.1; O2SAT 97
[2021-10-27 06:23] LABS: Glucose Point of Care 198 mg/dL (70-110)
[2021-10-27 08:00] VITALS: BP 160/79; PULSE 94; RESP 18; TEMP 37.1; O2SAT 94
[2021-10-27] MEDS: aspirin 81 mg EC Tablet PO (09:46)
[2021-10-27] MEDS: tizanidine 4 mg Tablet 2 MG PO ×2 (09:46→21:19)
[2021-10-27] MEDS: docusate sodium 100 mg Capsule PO ×2 (09:46→18:27)
[2021-10-27] MEDS: divalproex DR 500 mg Tablet PO (09:46)
[2021-10-27] MEDS: valACYclovir 1,000 mg Tablet 1000 MG PO ×2 (09:47→18:28)
[2021-10-27] MEDS: ferrous gluconate 324 mg Tablet PO ×2 (09:47→18:27)
[2021-10-27] MEDS: tamsulosin 0.4 mg Capsule PO (09:47)
[2021-10-27] MEDS: gabapentin 100 mg Capsule PO ×2 (09:47→21:18)
[2021-10-27] MEDS: insulin lispro 100 unit/1 mL SUBCUT ×2 (09:47→12:19)
[2021-10-27 11:03] LABS: Glucose Point of Care 219 mg/dL (70-110)
[2021-10-27 11:36] VITALS: BP 137/81; PULSE 92; RESP 18; TEMP 37.2; O2SAT 95
[2021-10-27 16:00] VITALS: BP 143/92; PULSE 87; RESP 18; TEMP 36.9; O2SAT 96
--- NOTE | 2021-10-27 16:49 | PM.PN ---
Subjective Subjective: No acute vents overnight. Patient denies any nausea vomiting, headache. Awake today. Being fed with eat today. Prolonged goals of care discussion with patient's DPOA over the phone. Vitals/I&O/Wt Last Vital Signs Temp 98.4 F 10/27/21 16:00 Pulse 87 10/27/21 16:00 Resp 18 10/27/21 16:00 BP 143/92 10/27/21 16:00 Pulse Ox 96 10/27/21 16:00 O2 Del Method 10/27/21 16:00 10/27/21 10/27/21 10/27/21 06:59 14:59 22:59 Intake Total 120 / 120 Balance 120 / 120 Physical Exam Narrative: General: Alert oriented x3, chronically ill-appearing,appearing comfortable at this time, HEENT: Normocephalic, atraumatic, EOMI Cardio: RRR, normal S1-S2, no murmurs Respiratory: CTA B/L GI: Abdomen soft, nontender, bowel sounds + Extremities: Trace b/l LE edema Urinary Catheter Management: Darling: Cath Placed During This Visit: yes, but has since been removed by the nurse Reason for Continuing Indwelling Catheter: Decision to DC Catheter Urinary Catheter Date of Insertion: 10/10/21 Urinary Catheter Time of Insertion: 00:45 Date Urinary Catheter Removed: 10/11/21 Time Urinary Catheter Discontinued: 12:31 Data : 10/25/21 06:10 10/25/21 06:10 A&P Assessment and plan (1) E coli bacteremia: Status: Resolved (2) Bacteremia due to Streptococcus: Status: Resolved (3) UTI (urinary tract infection): Status: Acute (4) Weakness: Started on Depakote 5 mg 3 times daily, Aricept 10 mg nightly, low-dose Ritalin 5 mg. For possible dystonia we will stop Ritalin. Restart gabapentin at a lower dose of 100 mg 3 times daily. Start on tizanidine 2 mg 3 times daily. Status: Acute (5) Normocytic anemia: Status: Acute (6) Hyponatremia: Status: Chronic (7) COPD (chronic obstructive pulmonary disease): Status: Chronic (8) Dehydration: Status: Resolved (9) Deficit in activities of daily living (ADL): Status: Acute (10) Thigh shingles: Status: Acute Plan 75 year old female with past medical history of COPD, diabetes, hyperlipidemia, hypertension presented to the hospital today for generalized weakness and after fall at home,currently being managed for. E. coli bacteremia/Streptococcus bacteremia: Patient has finished IV antibiotic course with ceftriaxone for overall 10 days. Has remained medically stable and afebrile. Failure to thrive/inability to take care of her ADLs. Acute on chronic hyponatremia: Resolved. Most likely secondary dehydration. Continue to monitor BMP daily for now. Type 2 diabetes mellitus: Start on insulin sliding scale at low-dose protocol. A1c 7.2 Shingles: Has not yet received vaccine. Started on acyclovir 800 mg 5 times a day on . Switch to oral valtrex 1 gm BID. Will finish 7-10 day course. Will monitor renal functions. Analgesia: Tylenol as needed Glycemic control: A1c 7.2. Insulin sliding scale at high-dose protocol Nutrition: Carb consistent diet CODE STATUS: Full code PUD prophylaxis: Famotidine DVT prophylaxis: Heparin 5000 every 12 hourly Discharge planning: Plan to discharge to SNF for further rehabilitation given deconditioning, failure to thrive, Continue with care at [facility] This documentation was created by [employer] superintendent laundry software. Every effort was made to ensure accuracy of superintendent laundry. Any obvious errors or omissions should be clarified with the author of the document. Plan for today: Had a prolonged goals of care discussion with patient's DPOA/Ms. Koo/daughter today. We discussed that unfortunately patient has poor baseline quality of life secondary to possibly dementia. Her mentation has not improved even though she has received complete treatment for bacteremia and UTI. We discussed that patient is at baseline bedbound and needs ambulation through a Belen lift. We discussed what could have patient wanted more or wanted patient exercise more and like off quality of life versus quantity of life. Patient's daughter and friend over the phone stated patient would have always chosen quality of life over quantity and she would have not wanted to live like this. We discussed further options including discharge with home health as patient has been denied by multiple snacks versus possible discharge with hospice given goals of care discussion as above. Family chooses hospice care. CODE STATUS changed to DNR/DNI. Case management alerted. Check Depakote levels. Decrease to Depakote 500 twice daily. Attestations Medical Necessity Statement*: Requires further hospitalization and management for hospice care while safe discharge planning is sought Time Spent in Patient Care: Greater than 35 minutes Coding Level of Care Code Acute Territory Representative for Chg Fwd Diagnoses E coli bacteremia R78.81; B96.20 Bacteremia due to Streptococcus R78.81; B95.5 UTI (urinary tract infection) N39.0 Weakness R53.1 Normocytic anemia D64.9 Hyponatremia E87.1 COPD (chronic obstructive pulmonary disease) J44.9 Dehydration E86.0 Deficit in activities of daily living (ADL) Z78.9 Thigh shingles B02.9
[2021-10-27 16:57] LABS: Glucose Point of Care 78 mg/dL (70-110)
[2021-10-27 17:46] LABS: Valproic Acid Level 100.6 ug/mL (50-100)
[2021-10-27 20:00] VITALS: BP 149/75; PULSE 92; RESP 24; TEMP 36.1; O2SAT 94
[2021-10-27 21:05] LABS: Glucose Point of Care 95 mg/dL (70-110)
[2021-10-27] MEDS: donepezil 5 MG Tablet 10 MG PO (21:18)
[2021-10-27] MEDS: atorvastatin 40 mg Tablet 20 MG PO (21:19)
[2021-10-28] VITALS: BP 134/71; PULSE 84; RESP 20; TEMP 36.8; O2SAT 92
[2021-10-28 04:00] VITALS: BP 152/84; PULSE 94; RESP 24; TEMP 36.7; O2SAT 96
[2021-10-28] MEDS: heparin 5,000 unit/mL INJ 1 mL 5000 UNIT SUBCUT ×2 (04:29→18:04)
[2021-10-28] MEDS: gabapentin 100 mg Capsule PO ×2 (06:11→21:46)
[2021-10-28 06:19] LABS: Glucose Point of Care 154 mg/dL (70-110)
[2021-10-28 08:00] VITALS: BP 108/78; PULSE 91; RESP 17; O2SAT 94
[2021-10-28] MEDS: aspirin 81 mg EC Tablet PO (09:00)
[2021-10-28] MEDS: insulin lispro 100 unit/1 mL SUBCUT ×2 (09:08→21:47)
[2021-10-28] MEDS: ferrous gluconate 324 mg Tablet PO (09:08)
[2021-10-28] MEDS: docusate sodium 100 mg Capsule PO (09:10)
[2021-10-28] MEDS: divalproex DR 500 mg Tablet PO (09:10)
[2021-10-28] MEDS: tamsulosin 0.4 mg Capsule PO (09:11)
[2021-10-28] MEDS: valACYclovir 1,000 mg Tablet 1000 MG PO (09:12)
[2021-10-28] MEDS: tizanidine 4 mg Tablet 2 MG PO ×2 (09:12→21:46)
[2021-10-28 12:32] LABS: Glucose Point of Care 129 mg/dL (70-110)
--- NOTE | 2021-10-28 14:27 | PC.SOCIAL ---
Addendum entered by Margaret Roca RN 10/28/21 14:33: Also called and left message to update IMM w/ patients ANASTACIA Koo. Original Note: IMM Update pg 2 of IMM updated and reviewed w/ patient. Copy provided and copy in chart initialed and dated.
--- NOTE | 2021-10-28 15:52 | PM.PN ---
Subjective Subjective: No acute events overnight. Has remained comfortable. Status quo. Vitals/I&O/Wt Last Vital Signs Temp 98.0 F 10/28/21 04:00 Pulse 91 10/28/21 08:00 Resp 17 10/28/21 08:00 BP 108/78 10/28/21 08:00 Pulse Ox 94 10/28/21 08:00 O2 Del Method 10/27/21 16:00 10/28/21 10/28/21 10/28/21 06:59 14:59 22:59 Intake Total 360 / 840 Balance 360 / 840 Physical Exam Narrative: General: Alert oriented x3, chronically ill-appearing,appearing comfortable at this time, HEENT: Normocephalic, atraumatic, EOMI Cardio: RRR, normal S1-S2, no murmurs Respiratory: CTA B/L GI: Abdomen soft, nontender, bowel sounds + Extremities: Trace b/l LE edema Urinary Catheter Management: Darling: Cath Placed During This Visit: yes, but has since been removed by the nurse Reason for Continuing Indwelling Catheter: Decision to DC Catheter Urinary Catheter Date of Insertion: 10/10/21 Urinary Catheter Time of Insertion: 00:45 Date Urinary Catheter Removed: 10/11/21 Time Urinary Catheter Discontinued: 12:31 Data : 10/25/21 06:10 10/25/21 06:10 A&P Assessment and plan (1) E coli bacteremia: Status: Resolved (2) Bacteremia due to Streptococcus: Status: Resolved (3) UTI (urinary tract infection): Status: Acute (4) Weakness: Started on Depakote 5 mg 3 times daily, Aricept 10 mg nightly, low-dose Ritalin 5 mg. For possible dystonia we will stop Ritalin. Restart gabapentin at a lower dose of 100 mg 3 times daily. Start on tizanidine 2 mg 3 times daily. Status: Acute (5) Normocytic anemia: Status: Acute (6) Hyponatremia: Status: Chronic (7) COPD (chronic obstructive pulmonary disease): Status: Chronic (8) Dehydration: Status: Resolved (9) Deficit in activities of daily living (ADL): Status: Acute (10) Thigh shingles: Status: Acute Plan 75 year old female with past medical history of COPD, diabetes, hyperlipidemia, hypertension presented to the hospital today for generalized weakness and after fall at home,currently being managed for. E. coli bacteremia/Streptococcus bacteremia: Patient has finished IV antibiotic course with ceftriaxone for overall 10 days. Has remained medically stable and afebrile. Failure to thrive/inability to take care of her ADLs. Acute on chronic hyponatremia: Resolved. Most likely secondary dehydration. Continue to monitor BMP daily for now. Type 2 diabetes mellitus: Start on insulin sliding scale at low-dose protocol. A1c 7.2 Shingles: Has not yet received vaccine. Started on acyclovir 800 mg 5 times a day on . Switch to oral valtrex 1 gm BID. Will finish 7-10 day course. Will monitor renal functions. Analgesia: Tylenol as needed Glycemic control: A1c 7.2. Insulin sliding scale at high-dose protocol Nutrition: Carb consistent diet CODE STATUS: Full code PUD prophylaxis: Famotidine DVT prophylaxis: Heparin 5000 every 12 hourly Discharge planning: Plan to discharge to SNF for further rehabilitation given deconditioning, failure to thrive, Continue with care at [facility] This documentation was created by [employer] mohs surgeon software. Every effort was made to ensure accuracy of mohs surgeon. Any obvious errors or omissions should be clarified with the author of the document. Plan for today: Had a prolonged goals of care discussion with patient's DPOA/Ms. Koo/daughter today. We discussed that unfortunately patient has poor baseline quality of life secondary to possibly dementia. Her mentation has not improved even though she has received complete treatment for bacteremia and UTI. We discussed that patient is at baseline bedbound and needs ambulation through a Belen lift. We discussed what could have patient wanted more or wanted patient exercise more and like off quality of life versus quantity of life. Patient's daughter and friend over the phone stated patient would have always chosen quality of life over quantity and she would have not wanted to live like this. We discussed further options including discharge with home health as patient has been denied by multiple snacks versus possible discharge with hospice given goals of care discussion as above. Family chooses hospice care. CODE STATUS changed to DNR/DNI. Case management alerted. Check Depakote levels. Decrease to Depakote 500 twice daily. 10/28: Continue with hospice care. Continue with donepezil, Depakote 500 mg twice daily. Continue valacyclovir last dose on 10/31. Attestations Medical Necessity Statement*: Requires further hospitalization for set up of hospice care for comfortable and safe discharge Time Spent in Patient Care: less than 15 minutes Coding Level of Care Code Acute Credit Consultant for Chg Fwd Diagnoses E coli bacteremia R78.81; B96.20 Bacteremia due to Streptococcus R78.81; B95.5 UTI (urinary tract infection) N39.0 Weakness R53.1 Normocytic anemia D64.9 Hyponatremia E87.1 COPD (chronic obstructive pulmonary disease) J44.9 Dehydration E86.0 Deficit in activities of daily living (ADL) Z78.9 Thigh shingles B02.9
[2021-10-28 16:00] VITALS: BP 128/70; PULSE 88; RESP 17; TEMP 36.6; O2SAT 97
--- NOTE | 2021-10-28 16:56 | PC.NURSE ---
patient refused to take meds or drink water. patient would not open mouth and shook her head no attempts to educate not successful
[2021-10-28 18:05] LABS: Glucose Point of Care 108 mg/dL (70-110)
--- NOTE | 2021-10-28 18:17 | PC.NURSE ---
patient continues to refuse meds and meals
[2021-10-28 20:00] VITALS: BP 125/65; PULSE 92; RESP 20; TEMP 36.3; O2SAT 93
[2021-10-28 20:41] LABS: Glucose Point of Care 143 mg/dL (70-110)
[2021-10-28] MEDS: donepezil 5 MG Tablet 10 MG PO (21:46)
[2021-10-28] MEDS: atorvastatin 40 mg Tablet 20 MG PO (21:46)
[2021-10-29] VITALS: BP 133/64; PULSE 85; RESP 22; TEMP 37.1; O2SAT 96
[2021-10-29 04:00] VITALS: BP 112/62; PULSE 82; RESP 18; TEMP 36.3; O2SAT 97
[2021-10-29] MEDS: heparin 5,000 unit/mL INJ 1 mL 5000 UNIT SUBCUT ×2 (04:48→19:00)
[2021-10-29 06:26] LABS: Glucose Point of Care 137 mg/dL (70-110)
[2021-10-29 07:21] VITALS: BP 149/76; PULSE 86; RESP 18; TEMP 36.8; O2SAT 94
[2021-10-29] MEDS: ferrous gluconate 324 mg Tablet PO ×2 (08:41→19:00)
[2021-10-29] MEDS: gabapentin 100 mg Capsule PO ×3 (08:41→19:57)
[2021-10-29] MEDS: aspirin 81 mg EC Tablet PO (08:41)
[2021-10-29] MEDS: tamsulosin 0.4 mg Capsule PO (08:41)
[2021-10-29] MEDS: valACYclovir 1,000 mg Tablet 1000 MG PO ×2 (08:41→19:00)
[2021-10-29] MEDS: tizanidine 4 mg Tablet 2 MG PO ×3 (08:42→19:57)
[2021-10-29] MEDS: docusate sodium 100 mg Capsule PO ×2 (08:44→19:00)
[2021-10-29] MEDS: divalproex DR 500 mg Tablet PO ×2 (09:37→19:00)
[2021-10-29 10:59] LABS: Glucose Point of Care 196 mg/dL (70-110)
[2021-10-29 11:19] VITALS: BP 138/72; PULSE 89; RESP 18; TEMP 36.8; O2SAT 96
[2021-10-29] MEDS: insulin lispro 100 unit/1 mL SUBCUT ×2 (11:28→21:53)
--- NOTE | 2021-10-29 12:51 | P.PN_ITS ---
Subjective Subjective: Patient more awake today. States she would like to eat. On examination laying in bed with milk carton in her hand. Able to have more conversation than yesterday but still drowsy. Patient will need help with her feeding currently. We will ask help from PROFESSIONAL ADVISOR's. Vitals/I&O/Wt Last Vital Signs Temp 98.3 F 10/29/21 11:19 Pulse 89 10/29/21 11:19 Resp 18 10/29/21 11:19 BP 138/72 10/29/21 11:19 Pulse Ox 96 10/29/21 11:19 O2 Del Method 10/29/21 11:19 10/28/21 10/29/21 10/29/21 22:59 06:59 14:59 Intake Total 160 / 160 300 / 300 Balance 160 / 160 300 / 300 Physical Exam Narrative: General: Alert oriented x3, chronically ill-appearing,appearing comfortable at this time, HEENT: Normocephalic, atraumatic, EOMI Cardio: RRR, normal S1-S2, no murmurs Respiratory: CTA B/L GI: Abdomen soft, nontender, bowel sounds + Extremities: Trace b/l LE edema Urinary Catheter Management: Darling: Cath Placed During This Visit: yes, but has since been removed by the nurse Reason for Continuing Indwelling Catheter: Decision to DC Catheter Urinary Catheter Date of Insertion: 10/10/21 Urinary Catheter Time of Insertion: 00:45 Date Urinary Catheter Removed: 10/11/21 Time Urinary Catheter Discontinued: 12:31 Data : 10/25/21 06:10 10/25/21 06:10 A&P Assessment and plan (1) E coli bacteremia: Status: Resolved (2) Bacteremia due to Streptococcus: Status: Resolved (3) UTI (urinary tract infection): Status: Acute (4) Weakness: Started on Depakote 5 mg 3 times daily, Aricept 10 mg nightly, low-dose Ritalin 5 mg. For possible dystonia we will stop Ritalin. Restart gabapentin at a lower dose of 100 mg 3 times daily. Start on tizanidine 2 mg 3 times daily. Status: Acute (5) Normocytic anemia: Status: Acute (6) Hyponatremia: Status: Chronic (7) COPD (chronic obstructive pulmonary disease): Status: Chronic (8) Dehydration: Status: Resolved (9) Deficit in activities of daily living (ADL): Status: Acute (10) Thigh shingles: Status: Acute Plan 75 year old female with past medical history of COPD, diabetes, hyperlipidemia, hypertension presented to the hospital today for generalized weakness and after fall at home,currently being managed for. E. coli bacteremia/Streptococcus bacteremia: Patient has finished IV antibiotic course with ceftriaxone for overall 10 days. Has remained medically stable and afebrile. Failure to thrive/inability to take care of her ADLs. Acute on chronic hyponatremia: Resolved. Most likely secondary dehydration. Continue to monitor BMP daily for now. Type 2 diabetes mellitus: Start on insulin sliding scale at low-dose protocol. A1c 7.2 Shingles: Has not yet received vaccine. Started on acyclovir 800 mg 5 times a day on . Switch to oral valtrex 1 gm BID. Will finish 7-10 day course. Will monitor renal functions. Analgesia: Tylenol as needed Glycemic control: A1c 7.2. Insulin sliding scale at high-dose protocol Nutrition: Carb consistent diet CODE STATUS: Full code PUD prophylaxis: Famotidine DVT prophylaxis: Heparin 5000 every 12 hourly Discharge planning: Plan to discharge to SNF for further rehabilitation given deconditioning, failure to thrive, Continue with care at [facility] This documentation was created by [employer] software. Every effort was made to ensure accuracy of [employer] repair and salvage. Any obvious errors or omissions should be clarified with the author of the document. Goals of care discussion: Had a prolonged goals of care discussion with patient's DPOA/Ms. Koo/daughter today. We discussed that unfortunately patient has poor baseline quality of life secondary to possibly dementia. Her mentation has not improved even though she has received complete treatment for bacteremia and UTI. We discussed that patient is at baseline bedbound and needs ambulation through a Belen lift. We discussed what could have patient wanted more or wanted patient exercise more and like off quality of life versus quantity of life. Patient's daughter and friend over the phone stated patient would have always chosen quality of life over quantity and she would have not wanted to live like this. We discussed further options including discharge with home health as patient has been denied by multiple snacks versus possible discharge with hospice given goals of care discussion as above. Family chooses hospice care. CODE STATUS changed to DNR/DNI. Case management alerted. Check Depakote levels. Decrease to Depakote 500 twice daily. 10/29: Patient more awake today. Continue with current dose of Depakote, donepezil. Finished course of valacyclovir. Remove PICC line. Aspiration precautions. Will request help from PROFESSIONAL ADVISOR's for feeding patient. Attestations Medical Necessity Statement*: Requires further hospitalization for hospice care while safe and comfortable discharge planning is sought. Time Spent in Patient Care: 16 - 35 minutes Coding Level of Care Code Acute Sheet Rock Taper for [facility] Fwd Diagnoses E coli bacteremia R78.81; B96.20 Bacteremia due to Streptococcus R78.81; B95.5 UTI (urinary tract infection) N39.0 Weakness R53.1 Normocytic anemia D64.9 Hyponatremia E87.1 COPD (chronic obstructive pulmonary disease) J44.9 Dehydration E86.0 Deficit in activities of daily living (ADL) Z78.9 Thigh shingles B02.9
[2021-10-29 15:46] VITALS: BP 129/67; PULSE 81; RESP 18; TEMP 36.7; O2SAT 93
[2021-10-29 17:35] LABS: Glucose Point of Care 103 mg/dL (70-110)
[2021-10-29] MEDS: donepezil 5 MG Tablet 10 MG PO (19:57)
[2021-10-29] MEDS: atorvastatin 40 mg Tablet 20 MG PO (19:57)
[2021-10-29 20:00] VITALS: BP 150/70; PULSE 92; RESP 16; TEMP 37.5; O2SAT 92
[2021-10-29 22:15] LABS: Glucose Point of Care 162 mg/dL (70-110)
[2021-10-30] VITALS: BP 144/69; PULSE 90; RESP 16; TEMP 37; O2SAT 93
[2021-10-30 04:00] VITALS: BP 127/69; PULSE 89; RESP 15; TEMP 37.2; O2SAT 90
[2021-10-30] MEDS: heparin 5,000 unit/mL INJ 1 mL 5000 UNIT SUBCUT ×2 (04:06→17:54)
[2021-10-30 06:22] LABS: Glucose Point of Care 113 mg/dL (70-110)
[2021-10-30 08:00] VITALS: BP 151/74; PULSE 90; RESP 16; TEMP 36.7; O2SAT 94
[2021-10-30] MEDS: gabapentin 100 mg Capsule PO ×3 (09:27→20:57)
[2021-10-30] MEDS: aspirin 81 mg EC Tablet PO (09:27)
[2021-10-30] MEDS: tizanidine 4 mg Tablet 2 MG PO ×3 (09:27→20:57)
[2021-10-30] MEDS: ferrous gluconate 324 mg Tablet PO ×2 (09:27→17:54)
[2021-10-30] MEDS: docusate sodium 100 mg Capsule PO ×2 (09:29→17:54)
[2021-10-30] MEDS: valACYclovir 1,000 mg Tablet 1000 MG PO ×2 (09:29→17:53)
[2021-10-30] MEDS: tamsulosin 0.4 mg Capsule PO (09:29)
[2021-10-30] MEDS: divalproex DR 500 mg Tablet PO ×2 (09:29→17:54)
--- NOTE | 2021-10-30 11:41 | PC.SOCIAL ---
IMM Update IMM updated with Hanane GALAVIZ. Initialled, dated, timed, and placed in chart.
[2021-10-30 11:47] LABS: Glucose Point of Care 238 mg/dL (70-110)
[2021-10-30 12:00] VITALS: BP 136/71; PULSE 97; RESP 16; TEMP 36.6; O2SAT 94
[2021-10-30] MEDS: insulin lispro 100 unit/1 mL SUBCUT ×2 (12:35→17:54)
--- NOTE | 2021-10-30 13:23 | PM.PN ---
Subjective Subjective: Status quo. Remains comfortable. More awake and alert. Able to have complete conversation. Drinking more than yesterday. Vitals/I&O/Wt Last Vital Signs Temp 98.1 F 10/30/21 08:00 Pulse 90 10/30/21 08:00 Resp 16 10/30/21 08:00 BP 151/74 10/30/21 08:00 Pulse Ox 94 10/30/21 08:00 O2 Del Method 10/30/21 08:00 10/29/21 10/30/21 10/30/21 22:59 06:59 14:59 Intake Total 240 / 240 Balance 240 / 240 Physical Exam Narrative: General: Alert oriented x3, chronically ill-appearing,appearing comfortable at this time, HEENT: Normocephalic, atraumatic, EOMI Cardio: RRR, normal S1-S2, no murmurs Respiratory: CTA B/L GI: Abdomen soft, nontender, bowel sounds + Extremities: Trace b/l LE edema Urinary Catheter Management: Darling: Cath Placed During This Visit: yes, but has since been removed by the nurse Reason for Continuing Indwelling Catheter: Decision to DC Catheter Urinary Catheter Date of Insertion: 10/10/21 Urinary Catheter Time of Insertion: 00:45 Date Urinary Catheter Removed: 10/11/21 Time Urinary Catheter Discontinued: 12:31 Data : 10/25/21 06:10 10/25/21 06:10 A&P Assessment and plan (1) E coli bacteremia: Status: Resolved (2) Bacteremia due to Streptococcus: Status: Resolved (3) UTI (urinary tract infection): Status: Acute (4) Weakness: Started on Depakote 500 mg 3 times daily, Aricept 10 mg nightly, low-dose Ritalin 5 mg. Depakote levels elevated. Depakote turned down to 500 mg twice daily. Continue tizanidine 2 mg 3 times a day. Gabapentin 100 mg 3 times a day. Restart home dose of risperidone. Ritalin stopped. Patient more awake. Seems to be getting to her baseline. Status: Acute (5) Normocytic anemia: Status: Acute (6) Hyponatremia: Status: Chronic (7) COPD (chronic obstructive pulmonary disease): Status: Chronic (8) Dehydration: Status: Resolved (9) Deficit in activities of daily living (ADL): Status: Acute (10) Thigh shingles: Status: Acute Plan 75 year old female with past medical history of COPD, diabetes, hyperlipidemia, hypertension presented to the hospital today for generalized weakness and after fall at home,currently being managed for. E. coli bacteremia/Streptococcus bacteremia: Patient has finished IV antibiotic course with ceftriaxone for overall 10 days. Has remained medically stable and afebrile. Failure to thrive/inability to take care of her ADLs. Acute on chronic hyponatremia: Resolved. Most likely secondary dehydration. Continue to monitor BMP daily for now. Type 2 diabetes mellitus: Start on insulin sliding scale at low-dose protocol. A1c 7.2 Shingles: Has not yet received vaccine. Started on acyclovir 800 mg 5 times a day on . Switch to oral valtrex 1 gm BID. Will finish 7-10 day course. Will monitor renal functions. Analgesia: Tylenol as needed Glycemic control: A1c 7.2. Insulin sliding scale at high-dose protocol Nutrition: Carb consistent diet CODE STATUS: Full code PUD prophylaxis: Famotidine DVT prophylaxis: Heparin 5000 every 12 hourly Discharge planning: Plan to discharge to SNF for further rehabilitation given deconditioning, failure to thrive, Continue with care at [facility] This documentation was created by [employer] director of neighborhood service center software. Every effort was made to ensure accuracy of director of neighborhood service center. Any obvious errors or omissions should be clarified with the author of the document. Goals of care discussion: Had a prolonged goals of care discussion with patient's DPOA/Ms. Koo/daughter today. We discussed that unfortunately patient has poor baseline quality of life secondary to possibly dementia. Her mentation has not improved even though she has received complete treatment for bacteremia and UTI. We discussed that patient is at baseline bedbound and needs ambulation through a Belen lift. We discussed what could have patient wanted more or wanted patient exercise more and like off quality of life versus quantity of life. Patient's daughter and friend over the phone stated patient would have always chosen quality of life over quantity and she would have not wanted to live like this. We discussed further options including discharge with home health as patient has been denied by multiple snacks versus possible discharge with hospice given goals of care discussion as above. Family chooses hospice care. CODE STATUS changed to DNR/DNI. Case management alerted. Check Depakote levels. Decrease to Depakote 500 twice daily. 10/30: Comfort measures. Psych medications changed as above. Continue same. Attestations Medical Necessity Statement*: Requires further hospitalization for hospice care while safe discharge planning result Time Spent in Patient Care: less than 15 minutes Coding Level of Care Code Acute Business Asst for g Fwd Diagnoses E coli bacteremia R78.81; B96.20 Bacteremia due to Streptococcus R78.81; B95.5 UTI (urinary tract infection) N39.0 Weakness R53.1 Normocytic anemia D64.9 Hyponatremia E87.1 COPD (chronic obstructive pulmonary disease) J44.9 Dehydration E86.0 Deficit in activities of daily living (ADL) Z78.9 Thigh shingles B02.9
[2021-10-30 16:00] VITALS: BP 144/75; PULSE 91; RESP 16; TEMP 37.2; O2SAT 92
[2021-10-30 17:26] LABS: Glucose Point of Care 157 mg/dL (70-110)
[2021-10-30] MEDS: risperiDONE 0.25 mg Tablet PO (17:54)
[2021-10-30 20:32] VITALS: BP 151/80; PULSE 99; RESP 17; TEMP 37.6; O2SAT 94
[2021-10-30] MEDS: donepezil 5 MG Tablet 10 MG PO (20:57)
[2021-10-30] MEDS: atorvastatin 40 mg Tablet 20 MG PO (20:57)
[2021-10-30 22:02] LABS: Glucose Point of Care 132 mg/dL (70-110)
[2021-10-31 01:05] VITALS: BP 144/71; PULSE 84; RESP 16; TEMP 37.1; O2SAT 92
[2021-10-31 04:48] VITALS: BP 160/71; PULSE 89; RESP 20; TEMP 37.1; O2SAT 96
[2021-10-31] MEDS: heparin 5,000 unit/mL INJ 1 mL 5000 UNIT SUBCUT ×2 (05:11→18:15)
[2021-10-31 06:14] LABS: Glucose Point of Care 149 mg/dL (70-110)
[2021-10-31 07:20] VITALS: BP 136/82; PULSE 89; RESP 18; O2SAT 94
[2021-10-31 08:02] LABS: HSV 1 DNA NOT DETECTED; HSV 2 DNA NOT DETECTED; HSV Source SWAB
[2021-10-31] MEDS: risperiDONE 0.25 mg Tablet PO ×2 (08:52→18:13)
[2021-10-31] MEDS: docusate sodium 100 mg Capsule PO ×2 (08:52→18:13)
[2021-10-31] MEDS: tamsulosin 0.4 mg Capsule PO (08:52)
[2021-10-31] MEDS: gabapentin 100 mg Capsule PO ×3 (08:53→21:16)
[2021-10-31] MEDS: ferrous gluconate 324 mg Tablet PO ×2 (08:53→18:13)
[2021-10-31] MEDS: insulin lispro 100 unit/1 mL SUBCUT ×4 (08:53→21:36)
[2021-10-31] MEDS: aspirin 81 mg EC Tablet PO (08:53)
[2021-10-31] MEDS: tizanidine 4 mg Tablet 2 MG PO ×3 (08:54→21:16)
[2021-10-31] MEDS: valACYclovir 1,000 mg Tablet 1000 MG PO ×2 (09:06→18:13)
[2021-10-31] MEDS: divalproex DR 500 mg Tablet PO ×2 (09:22→18:13)
[2021-10-31 11:06] LABS: Glucose Point of Care 199 mg/dL (70-110)
[2021-10-31 12:00] VITALS: BP 134/72; PULSE 92; RESP 18; TEMP 36.9; O2SAT 96
--- NOTE | 2021-10-31 13:18 | P.PN_ITS ---
Subjective Subjective: To scope. Noted events. Patient more awake today. Diet change as per swallow evaluation. Vitals/I&O/Wt Last Vital Signs Temp 98.4 F 10/31/21 12:00 Pulse 92 10/31/21 12:00 Resp 18 10/31/21 12:00 BP 134/72 10/31/21 12:00 Pulse Ox 96 10/31/21 12:00 O2 Del Method 10/31/21 12:00 10/30/21 10/31/21 10/31/21 22:59 06:59 14:59 Intake Total 100 / 340 60 / 400 240 / 240 Output Total 3 Balance 97 / 337 60 / 397 240 / 240 Physical Exam Narrative: General: Alert oriented x3, chronically ill-appearing,appearing comfortable at this time, HEENT: Normocephalic, atraumatic, EOMI Cardio: RRR, normal S1-S2, no murmurs Respiratory: CTA B/L GI: Abdomen soft, nontender, bowel sounds + Extremities: Trace b/l LE edema Urinary Catheter Management: Darling: Cath Placed During This Visit: yes, but has since been removed by the nurse Reason for Continuing Indwelling Catheter: Decision to DC Catheter Urinary Catheter Date of Insertion: 10/10/21 Urinary Catheter Time of Insertion: 00:45 Date Urinary Catheter Removed: 10/11/21 Time Urinary Catheter Discontinued: 12:31 Data : 10/25/21 06:10 10/25/21 06:10 A&P Assessment and plan (1) E coli bacteremia: Status: Resolved (2) Bacteremia due to Streptococcus: Status: Resolved (3) UTI (urinary tract infection): Status: Acute (4) Weakness: Started on Depakote 500 mg 3 times daily, Aricept 10 mg nightly, low-dose Ritalin 5 mg. Depakote levels elevated. Depakote turned down to 500 mg twice daily. Continue tizanidine 2 mg 3 times a day. Gabapentin 100 mg 3 times a day. Restart home dose of risperidone. Ritalin stopped. Patient more awake. Seems to be getting to her baseline. Status: Acute (5) Normocytic anemia: Status: Acute (6) Hyponatremia: Status: Chronic (7) COPD (chronic obstructive pulmonary disease): Status: Chronic (8) Dehydration: Status: Resolved (9) Deficit in activities of daily living (ADL): Status: Acute (10) Thigh shingles: Status: Acute Plan 75 year old female with past medical history of COPD, diabetes, hyperlipidemia, hypertension presented to the hospital today for generalized weakness and after fall at home,currently being managed for. E. coli bacteremia/Streptococcus bacteremia: Patient has finished IV antibiotic course with ceftriaxone for overall 10 days. Has remained medically stable and afebrile. Failure to thrive/inability to take care of her ADLs. Acute on chronic hyponatremia: Resolved. Most likely secondary dehydration. Continue to monitor BMP daily for now. Type 2 diabetes mellitus: Start on insulin sliding scale at low-dose protocol. A1c 7.2 Shingles: Has not yet received vaccine. Started on acyclovir 800 mg 5 times a day on . Switch to oral valtrex 1 gm BID. Will finish 7-10 day course. Will monitor renal functions. Analgesia: Tylenol as needed Glycemic control: A1c 7.2. Insulin sliding scale at high-dose protocol Nutrition: Carb consistent diet CODE STATUS: Full code PUD prophylaxis: Famotidine DVT prophylaxis: Heparin 5000 every 12 hourly Discharge planning: Plan to discharge to SNF for further rehabilitation given deconditioning, failure to thrive, Continue with care at [facility] floor This documentation was created by [employer] asphalt raker software. Every effort was made to ensure accuracy of asphalt raker. Any obvious errors or omissions should be clarified with the author of the document. Goals of care discussion: Had a prolonged goals of care discussion with patient's DPOA/Ms. Koo/daughter today. We discussed that unfortunately patient has poor baseline quality of life secondary to possibly dementia. Her mentation has not improved even though she has received complete treatment for bacteremia and UTI. We discussed that patient is at baseline bedbound and needs ambulation through a Belen lift. We discussed what could have patient wanted more or wanted patient exercise more and like off quality of life versus quantity of life. Adama cueto's daughter and friend over the phone stated patient would have always chosen quality of life over quantity and she would have not wanted to live like this. We discussed further options including discharge with home health as patient has been denied by multiple snacks versus possible discharge with hospice given goals of care discussion as above. Family chooses hospice care. CODE STATUS changed to DNR/DNI. Case management alerted. Check Depakote levels. Decrease to Depakote 500 twice daily. 10/30: Comfort measures. Psych medications changed as above. Continue same. Plan for the day: Continue with same medications. Diet changed as per swallow evaluation for more comfort and better intake Attestations Medical Necessity Statement*: Requires further hospitalization for hospice care while discharge planning is sought Time Spent in Patient Care: less than 15 minutes Coding Level of Care Code Acute Pier Worker for [facility] Fwd Diagnoses E coli bacteremia R78.81; B96.20 Bacteremia due to Streptococcus R78.81; B95.5 UTI (urinary tract infection) N39.0 Weakness R53.1 Normocytic anemia D64.9 Hyponatremia E87.1 COPD (chronic obstructive pulmonary disease) J44.9 Dehydration E86.0 Deficit in activities of daily living (ADL) Z78.9 Thigh shingles B02.9
[2021-10-31 15:32] VITALS: BP 129/72; PULSE 86; RESP 16; TEMP 36.8; O2SAT 97
[2021-10-31 16:54] LABS: Glucose Point of Care 165 mg/dL (70-110)
[2021-10-31 20:00] VITALS: BP 166/81; PULSE 98; RESP 12; TEMP 36.4; O2SAT 93
[2021-10-31] MEDS: atorvastatin 40 mg Tablet 20 MG PO (21:16)
[2021-10-31] MEDS: donepezil 5 MG Tablet 10 MG PO (21:16)
[2021-10-31 21:30] LABS: Glucose Point of Care 180 mg/dL (70-110)
[2021-11-01] VITALS (7 sets, daily range): BP systolic 98–158; BP diastolic 61–99; PULSE 85–98; RESP 12–18; TEMP 36.5–37.6; O2SAT 90–94
[2021-11-01] MEDS: heparin 5,000 unit/mL INJ 1 mL 5000 UNIT SUBCUT ×2 (05:17→16:04)
[2021-11-01 06:42] LABS: Glucose Point of Care 164 mg/dL (70-110)
[2021-11-01] MEDS: ferrous gluconate 324 mg Tablet PO ×2 (09:30→17:24)
[2021-11-01] MEDS: insulin lispro 100 unit/1 mL SUBCUT ×3 (09:30→21:10)
[2021-11-01] MEDS: docusate sodium 100 mg Capsule PO ×2 (09:31→17:24)
[2021-11-01] MEDS: aspirin 81 mg EC Tablet PO (09:31)
[2021-11-01] MEDS: divalproex DR 500 mg Tablet PO ×2 (09:31→17:24)
[2021-11-01] MEDS: risperiDONE 0.25 mg Tablet PO ×2 (09:31→17:24)
[2021-11-01] MEDS: gabapentin 100 mg Capsule PO ×3 (09:31→21:10)
[2021-11-01] MEDS: tamsulosin 0.4 mg Capsule PO (09:31)
[2021-11-01] MEDS: tizanidine 4 mg Tablet 2 MG PO ×3 (09:32→21:10)
--- NOTE | 2021-11-01 09:44 | PM.PN ---
Subjective Subjective: No acute events overnight. Status quo. States she is comfortable. States she is hungry. Denies any nausea, vomiting, headache. Vitals/I&O/Wt Last Vital Signs Temp 98.9 F 11/01/21 08:00 Pulse 98 11/01/21 08:00 Resp 18 11/01/21 08:00 BP 158/66 11/01/21 08:00 Pulse Ox 91 11/01/21 08:00 O2 Del Method 11/01/21 08:00 10/31/21 11/01/21 11/01/21 22:59 06:59 14:59 Intake Total 240 / 480 0 / 480 120 / 120 Output Total 0 / 0 Balance 240 / 480 0 / 480 120 / 120 Physical Exam Narrative: General: Alert oriented x3, chronically ill-appearing,appearing comfortable at this time, HEENT: Normocephalic, atraumatic, EOMI Cardio: RRR, normal S1-S2, no murmurs Respiratory: CTA B/L GI: Abdomen soft, nontender, bowel sounds + Extremities: Trace b/l LE edema Urinary Catheter Management: Darling: Cath Placed During This Visit: yes, but has since been removed by the nurse Reason for Continuing Indwelling Catheter: Decision to DC Catheter Urinary Catheter Date of Insertion: 10/10/21 Urinary Catheter Time of Insertion: 00:45 Date Urinary Catheter Removed: 10/11/21 Time Urinary Catheter Discontinued: 12:31 Data : 10/25/21 06:10 10/25/21 06:10 A&P Assessment and plan (1) E coli bacteremia: Status: Resolved (2) Bacteremia due to Streptococcus: Status: Resolved (3) UTI (urinary tract infection): Status: Acute (4) Weakness: Started on Depakote 500 mg 3 times daily, Aricept 10 mg nightly, low-dose Ritalin 5 mg. Depakote levels elevated. Depakote turned down to 500 mg twice daily. Continue tizanidine 2 mg 3 times a day. Gabapentin 100 mg 3 times a day. Restart home dose of risperidone. Ritalin stopped. Patient more awake. Seems to be getting to her baseline. Status: Acute (5) Normocytic anemia: Status: Acute (6) Hyponatremia: Status: Chronic (7) COPD (chronic obstructive pulmonary disease): Status: Chronic (8) Dehydration: Status: Resolved (9) Deficit in activities of daily living (ADL): Status: Acute (10) Thigh shingles: Status: Acute Plan 75 year old female with past medical history of COPD, diabetes, hyperlipidemia, hypertension presented to the hospital today for generalized weakness and after fall at home,currently being managed for. E. coli bacteremia/Streptococcus bacteremia: Patient has finished IV antibiotic course with ceftriaxone for overall 10 days. Has remained medically stable and afebrile. Failure to thrive/inability to take care of her ADLs. Acute on chronic hyponatremia: Resolved. Most likely secondary dehydration. Continue to monitor BMP daily for now. Type 2 diabetes mellitus: Start on insulin sliding scale at low-dose protocol. A1c 7.2 Shingles: Has not yet received vaccine. Started on acyclovir 800 mg 5 times a day on . Switch to oral valtrex 1 gm BID. Will finish 7-10 day course. Will monitor renal functions. Analgesia: Tylenol as needed Glycemic control: A1c 7.2. Insulin sliding scale at high-dose protocol Nutrition: Carb consistent diet CODE STATUS: Full code PUD prophylaxis: Famotidine DVT prophylaxis: Heparin 5000 every 12 hourly Discharge planning: Plan to discharge to SNF for further rehabilitation given deconditioning, failure to thrive, Continue with care at [facility] This documentation was created by [employer] senior civil engineer software. Every effort was made to ensure accuracy of senior civil engineer. Any obvious errors or omissions should be clarified with the author of the document. Goals of care discussion: Had a prolonged goals of care discussion with patient's DPOA/Ms. Koo/daughter today. We discussed that unfortunately patient has poor baseline quality of life secondary to possibly dementia. Her mentation has not improved even though she has received complete treatment for bacteremia and UTI. We discussed that patient is at baseline bedbound and needs ambulation through a Belen lift. We discussed what could have patient wanted more or wanted patient exercise more and like off quality of life versus quantity of life. Patient's daughter and friend over the phone stated patient would have always chosen quality of life over quantity and she would have not wanted to live like this. We discussed further options including discharge with home health as patient has been denied by multiple snacks versus possible discharge with hospice given goals of care discussion as above. Family chooses hospice care. CODE STATUS changed to DNR/DNI. Case management alerted. Check Depakote levels. Decrease to Depakote 500 twice daily. 10/31: Continue with comfort measures/hospice care. Aricept 10 mg oral nightly, Depakote 500 twice daily, risperidone 0.25 twice daily at home dose. We will increase the dose of tizanidine today for comfort. Diet as per swallow evaluation. Attestations Medical Necessity Statement*: Requires further hospitalization for hospice care while safe discharge planning is sought. Time Spent in Patient Care: less than 15 minutes Coding Level of Care Code Acute Research Chief Engineer for g Fwd Diagnoses E coli bacteremia R78.81; B96.20 Bacteremia due to Streptococcus R78.81; B95.5 UTI (urinary tract infection) N39.0 Weakness R53.1 Normocytic anemia D64.9 Hyponatremia E87.1 COPD (chronic obstructive pulmonary disease) J44.9 Dehydration E86.0 Deficit in activities of daily living (ADL) Z78.9 Thigh shingles B02.9
[2021-11-01 11:10] LABS: Glucose Point of Care 263 mg/dL (70-110)
--- NOTE | 2021-11-01 13:58 | PC.CHAP ---
Pastoral Care Encounter/Spiritual Assessment Type of Contact [] Declined assistant tennis coach visit [] Patient/Family/Request visit [] Outpatient visit [] Follow-up visit [] Physician referral [] Code/Alert [x] Routine visit [] Staff referral [] Actively dying [] Patient sleeping [] Family support [] [] Out of room [] Palliative care [] [] Receiving care in room [] Pre-surgical visit [] Trauma [] Long length of stay [] ICU visit [] Other: Relational/Emotional Strength [x] Patient feels connected with others/family/visitors/staff [] Distress [] Loneliness/isolation [] Abandonment Spirituality of Patient [x] Person of Winsome [] Attends Adventist of their Winsome [x] Believes in Prayer [] Reads Bible or Bahai materials [] There are Spiritual issues to be addressed Sewage Disposal Engineer Interventions [x] Prayer xx] Active listening [x] Non-anxious presence [x] Spiritual/emotional support [] Crisis/trauma care [] Spiritual counseling [] Bereavement support [] Provided bereavement packet [] Provided Bible/devotional materials [] Provided toy/stuffed animal, coloring book to patient or family member [] Provided Communion [] Anointing/[place] [] Salvation [x] Completed spiritual assessment [] Other: Impact on Illness or Injury [] Angry [] Fearful [] Anxious [] Often cries [] Exhaustion [] Unable to work [] Unable to attend mosque [] Unable to walk/stand [] Unable to read [] Unable to drive [] Unable to eat/drink [] Unable to sleep [] Unable to be with family [] Patient intubated [] Other: Summary Time spent with patient 10 min
--- NOTE | 2021-11-01 16:30 | PC.SOCIAL ---
IMM Update pg 2 of IMM updated via voice mail w/ patients DPOA Hanane Beltran. Copy left in room w/patient. Copy in chart dated and initialed.
[2021-11-01 17:04] LABS: Glucose Point of Care 125 mg/dL (70-110)
[2021-11-01 20:23] LABS: Glucose Point of Care 196 mg/dL (70-110)
[2021-11-01] MEDS: atorvastatin 40 mg Tablet 20 MG PO (21:10)
[2021-11-01] MEDS: donepezil 5 MG Tablet 10 MG PO (21:10)
[2021-11-02 03:58] VITALS: BP 154/67; PULSE 92; RESP 18; TEMP 37.1; O2SAT 95
[2021-11-02] MEDS: heparin 5,000 unit/mL INJ 1 mL 5000 UNIT SUBCUT ×2 (03:58→16:23)
--- NOTE | 2021-11-02 04:05 | PC.NURSE ---
Patient's linens and brief currently clean and dry.
[2021-11-02 06:43] LABS: Glucose Point of Care 145 mg/dL (70-110)
[2021-11-02 07:49] VITALS: BP 128/73; PULSE 90; RESP 16; TEMP 37; O2SAT 90
[2021-11-02] MEDS: risperiDONE 0.25 mg Tablet PO ×2 (08:14→16:25)
[2021-11-02] MEDS: divalproex DR 500 mg Tablet PO ×2 (08:14→16:23)
[2021-11-02] MEDS: tizanidine 4 mg Tablet 2 MG PO ×3 (08:14→20:01)
[2021-11-02] MEDS: tamsulosin 0.4 mg Capsule PO (08:14)
[2021-11-02] MEDS: gabapentin 100 mg Capsule PO ×3 (08:14→20:01)
[2021-11-02] MEDS: aspirin 81 mg EC Tablet PO (08:15)
[2021-11-02] MEDS: ferrous gluconate 324 mg Tablet PO ×2 (08:15→16:24)
[2021-11-02] MEDS: insulin lispro 100 unit/1 mL SUBCUT ×3 (08:15→20:43)
[2021-11-02 11:09] LABS: Glucose Point of Care 156 mg/dL (70-110)
--- NOTE | 2021-11-02 11:27 | PM.PN ---
Subjective Subjective: Seen this morning. Patient sit up in bed appearing comfortable at this time. No acute events overnight. Vitals/I&O/Wt Last Vital Signs Temp 98.6 F 11/02/21 07:49 Pulse 90 11/02/21 07:49 Resp 16 11/02/21 07:49 BP 128/73 11/02/21 07:49 Pulse Ox 90 11/02/21 07:49 O2 Del Method 11/02/21 03:58 11/01/21 11/02/21 11/02/21 22:59 06:59 14:59 Intake Total 120 / 360 100 / 460 Balance 120 / 360 100 / 460 Physical Exam Narrative: General: Alert oriented to self only,, chronically ill-appearing,appearing comfortable at this time, HEENT: Normocephalic, atraumatic, EOMI Cardio: RRR, normal S1-S2, no murmurs Respiratory: CTA B/L GI: Abdomen soft, nontender, bowel sounds + Extremities: Trace b/l LE edema Urinary Catheter Management: Darling: Cath Placed During This Visit: yes, but has since been removed by the nurse Reason for Continuing Indwelling Catheter: Decision to DC Catheter Urinary Catheter Date of Insertion: 10/10/21 Urinary Catheter Time of Insertion: 00:45 Date Urinary Catheter Removed: 10/11/21 Time Urinary Catheter Discontinued: 12:31 Data : 10/25/21 06:10 10/25/21 06:10 A&P Assessment and plan (1) Thigh shingles: Status: Acute (2) UTI (urinary tract infection): Status: Acute (3) COPD (chronic obstructive pulmonary disease): Status: Chronic (4) Hyponatremia: Status: Chronic (5) Deficit in activities of daily living (ADL): Status: Acute (6) Leukocytosis: Status: Acute (7) Normocytic anemia: Status: Acute (8) Weakness: Status: Acute Plan #Dementia #E. coli bacteremia/Streptococcus bacteremia #Failure to thrive #Acute on chronic hyponatremia?resolved #Type 2 diabetes mellitus #Shingles #History of COPD, normocytic anemia, generalized weakness #UTI?resolved ? She has completed IV antibiotic course with ceftriaxone for overall 10 days. Has remained medically stable and afebrile. Patient's unable to take care of herself. Hyponatremia has resolved. Most likely this is secondary to dehydration. A1c 7.2. Continue on insulin sliding scale. ? Completed acyclovir 805 times a day on . She is not on Valtrex 1 g twice daily to finish 7 to 10-day course in total. ? Consistent carbohydrate diet ? Famotidine, heparin 5000 every 12 hours ? Continue Depakote 500 twice daily Discharge planning: Plan to discharge to SNF for further rehabilitation given deconditioning, failure to thrive ? Previous hospitalist Dr. Mock had extensive discussion with family regarding goals of care. Given patient's history of poor baseline quality of life, failure to thrive and possibly dementia, being bedbound requiring the use of a Belen lift patient's family has opted for hospice care at this time. CODE STATUS now DNR/DNI. Patient awaiting placement to a facility at this time. Attestations Medical Necessity Statement*: Requires further hospitalization for hospice care while safe discharge planning is sought Coding Level of Care Code Acute Decision Support Analyst for [facility] Fwd Diagnoses Thigh shingles B02.9 UTI (urinary tract infection) N39.0 COPD (chronic obstructive pulmonary disease) J44.9 Hyponatremia E87.1 Deficit in activities of daily living (ADL) Z78.9 Leukocytosis D72.829 Normocytic anemia D64.9 Weakness R53.1
[2021-11-02 11:31] VITALS: BP 137/75; PULSE 83; RESP 16; TEMP 36.6; O2SAT 98
[2021-11-02 15:37] VITALS: BP 169/63; PULSE 77; RESP 18; TEMP 36.9; O2SAT 91
[2021-11-02] MEDS: docusate sodium 100 mg Capsule PO (16:23)
[2021-11-02 19:35] VITALS: BP 158/60; PULSE 79; RESP 18; TEMP 36.6; O2SAT 90
[2021-11-02] MEDS: donepezil 5 MG Tablet 10 MG PO (20:01)
[2021-11-02] MEDS: atorvastatin 40 mg Tablet 20 MG PO (20:01)
[2021-11-02 20:34] LABS: Glucose Point of Care 214 mg/dL (70-110)
[2021-11-03] VITALS: BP 118/74; PULSE 68; RESP 18; TEMP 36.3; O2SAT 96
[2021-11-03 04:00] VITALS: BP 118/72; PULSE 68; RESP 18; TEMP 36.3; O2SAT 96
[2021-11-03] MEDS: heparin 5,000 unit/mL INJ 1 mL 5000 UNIT SUBCUT ×2 (04:28→16:05)
[2021-11-03 06:36] LABS: Glucose Point of Care 144 mg/dL (70-110)
[2021-11-03 08:00] VITALS: BP 129/77; PULSE 85; RESP 16; TEMP 36.7; O2SAT 94
[2021-11-03] MEDS: risperiDONE 0.25 mg Tablet PO ×2 (09:28→18:10)
[2021-11-03] MEDS: divalproex DR 500 mg Tablet PO ×2 (09:28→18:10)
[2021-11-03] MEDS: gabapentin 100 mg Capsule PO ×3 (09:28→22:03)
[2021-11-03] MEDS: tizanidine 4 mg Tablet 2 MG PO ×3 (09:28→22:03)
[2021-11-03] MEDS: ferrous gluconate 324 mg Tablet PO ×2 (09:28→18:10)
[2021-11-03] MEDS: tamsulosin 0.4 mg Capsule PO (09:28)
[2021-11-03] MEDS: docusate sodium 100 mg Capsule PO ×2 (09:28→18:10)
[2021-11-03] MEDS: acetaminophen 325 mg Tablet 650 MG PO ×2 (09:29→18:10)
[2021-11-03] MEDS: aspirin 81 mg EC Tablet PO (09:30)
[2021-11-03] MEDS: insulin lispro 100 unit/1 mL SUBCUT ×2 (09:31→11:56)
--- NOTE | 2021-11-03 10:30 | P.PN_ITS ---
Subjective Subjective: Seen this morning. Patient sit up in bed appearing comfortable at this time. No acute events overnight. Vitals/I&O/Wt Last Vital Signs Temp 98.1 F 11/03/21 08:00 Pulse 85 11/03/21 08:00 Resp 16 11/03/21 08:00 BP 129/77 11/03/21 08:00 Pulse Ox 94 11/03/21 08:00 O2 Del Method 11/03/21 08:00 11/02/21 11/03/21 11/03/21 22:59 06:59 14:59 Intake Total 340 / 340 360 / 360 Balance 340 / 340 360 / 360 Physical Exam Narrative: General: Alert oriented to self only,, chronically ill- appearing,appearing comfortable at this time, HEENT: Normocephalic, atraumatic, EOMI Cardio: RRR, normal S1-S2, no murmurs Respiratory: CTA B/L GI: Abdomen soft, nontender, bowel sounds + Extremities: Trace b/l LE edema Urinary Catheter Management: Darling: Cath Placed During This Visit: yes, but has since been removed by the nurse Reason for Continuing Indwelling Catheter: Decision to DC Catheter Urinary Catheter Date of Insertion: 10/10/21 Urinary Catheter Time of Insertion: 00:45 Date Urinary Catheter Removed: 10/11/21 Time Urinary Catheter Discontinued: 12:31 Data : 10/25/21 06:10 10/25/21 06:10 A&P Assessment and plan (1) Thigh shingles: Status: Acute (2) UTI (urinary tract infection): Status: Acute (3) COPD (chronic obstructive pulmonary disease): Status: Chronic (4) Hyponatremia: Status: Chronic (5) Deficit in activities of daily living (ADL): Status: Acute (6) Leukocytosis: Status: Acute (7) Normocytic anemia: Status: Acute (8) Weakness: Status: Acute Plan #Dementia #E. coli bacteremia/Streptococcus bacteremia - completed antibiotics course #Failure to thrive #Acute on chronic hyponatremia?resolved #Type 2 diabetes mellitus #Shingles #History of COPD, normocytic anemia, generalized weakness #UTI?resolved ? She has completed IV antibiotic course with ceftriaxone for overall 10 days. Has remained medically stable and afebrile. Patient's unable to take care of herself. Hyponatremia has resolved. Most likely this is secondary to dehydration. A1c 7.2. Continue on insulin sliding scale. ? Completed acyclovir and valtrex course. - Order perineal area rash zinc oxide, nystatin powder. Will use depends. ? Consistent carbohydrate diet ? Famotidine, heparin 5000 every 12 hours ? Continue Depakote 500 twice daily Discharge planning: Plan to discharge to SNF for further rehabilitation given deconditioning, failure to thrive ? Previous hospitalist Dr. Mock had extensive discussion with family regarding goals of care. Given patient's history of poor baseline quality of life, failure to thrive and possibly dementia, being bedbound requiring the use of a Belen lift patient's family has opted for hospice care at this time. CODE STATUS now DNR/DNI. Patient awaiting placement to a facility at this time. Will discuss with family today. Attestations Medical Necessity Statement*: Requires further hospitalization for hospice care while safe discharge planning is sought Coding Level of Care Code Acute Mainspring Torque Tester for [facility] Fwd Diagnoses Thigh shingles B02.9 UTI (urinary tract infection) N39.0 COPD (chronic obstructive pulmonary disease) J44.9 Hyponatremia E87.1 Deficit in activities of daily living (ADL) Z78.9 Leukocytosis D72.829 Normocytic anemia D64.9 Weakness R53.1
[2021-11-03 10:53] LABS: Glucose Point of Care 239 mg/dL (70-110)
[2021-11-03 11:32] VITALS: BP 119/73; PULSE 81; RESP 16; TEMP 36.9; O2SAT 92
--- NOTE | 2021-11-03 11:54 | PC.SOCIAL ---
IMM Updated Updated Crystal on IMM. No questions voiced. Provided pt a copy. Initialed, dated, & timed copy in chart.
--- NOTE | 2021-11-03 15:43 | PC.NURSE ---
Bed bath given to patient. Cream and powder applied to wounds on thighs and groin. Patient tolerated well.
[2021-11-03 15:46] VITALS: BP 121/73; PULSE 80; RESP 18; TEMP 36.8; O2SAT 96
[2021-11-03 17:07] LABS: Glucose Point of Care 123 mg/dL (70-110)
[2021-11-03] MEDS: nystatin powder 15 gm Btl 1 APPLIC TOPICAL (18:11)
[2021-11-03 20:00] VITALS: BP 132/70; PULSE 78; RESP 18; TEMP 36.4; O2SAT 91
[2021-11-03 20:39] LABS: Glucose Point of Care 136 mg/dL (70-110)
[2021-11-03] MEDS: atorvastatin 40 mg Tablet 20 MG PO (22:03)
[2021-11-03] MEDS: donepezil 5 MG Tablet 10 MG PO (22:03)
[2021-11-04] VITALS: BP 142/70; PULSE 72; RESP 18; TEMP 36.8; O2SAT 96
[2021-11-04 04:00] VITALS: BP 132/70; PULSE 78; RESP 20; TEMP 36.8; O2SAT 95
[2021-11-04 06:15] LABS: Glucose Point of Care 138 mg/dL (70-110)
--- NOTE | 2021-11-04 07:50 | P.PN_ITS ---
Vitals/I&O/Wt Last Vital Signs Temp 98.3 F 11/04/21 04:00 Pulse 78 11/04/21 04:00 Resp 20 H 11/04/21 04:00 BP 132/70 11/04/21 04:00 Pulse Ox 95 11/04/21 04:00 O2 Del Method 11/03/21 15:46 11/03/21 11/04/21 11/04/21 22:59 06:59 14:59 Intake Total 180 / 780 120 / 900 Balance 180 / 780 120 / 900 Physical Exam Urinary Catheter Management: Darling: Cath Placed During This Visit: yes, but has since been removed by the nurse Reason for Continuing Indwelling Catheter: Decision to DC Catheter Urinary Catheter Date of Insertion: 10/10/21 Urinary Catheter Time of Insertion: 00:45 Date Urinary Catheter Removed: 10/11/21 Time Urinary Catheter Discontinued: 12:31 Data : 10/25/21 06:10 10/25/21 06:10 Coding Level of Care Code Acute Movie Shot Camera Operator for [facility]
[2021-11-04 08:00] VITALS: BP 143/75; PULSE 76; RESP 17; O2SAT 96
[2021-11-04] MEDS: ferrous gluconate 324 mg Tablet PO (08:11)
[2021-11-04] MEDS: gabapentin 100 mg Capsule PO (08:12)
[2021-11-04] MEDS: divalproex DR 500 mg Tablet PO (08:12)
[2021-11-04] MEDS: aspirin 81 mg EC Tablet PO (08:12)
[2021-11-04] MEDS: docusate sodium 100 mg Capsule PO (08:12)
[2021-11-04] MEDS: risperiDONE 0.25 mg Tablet PO (08:13)
[2021-11-04] MEDS: tamsulosin 0.4 mg Capsule PO (08:13)
[2021-11-04] MEDS: tizanidine 4 mg Tablet 2 MG PO (08:15)
[2021-11-04] MEDS: nystatin powder 15 gm Btl 1 APPLIC TOPICAL (08:16)
--- NOTE | 2021-11-04 09:47 | P.DS_ITS ---
Discharge Providers Date of Admission: 10/11/21 12:48 Date of Discharge: November 04, 2021 Attending Provider at Admission: Remedios Sauceda MD Attending Provider at Discharge: Remedios Sauceda MD Primary Care Provider: RERE Robles Diagnoses at Discharge Discharge Diagnosis (1) Thigh shingles: Status: Acute (2) UTI (urinary tract infection): Status: Acute (3) COPD (chronic obstructive pulmonary disease): Status: Chronic (4) Hyponatremia: Status: Chronic (5) Deficit in activities of daily living (ADL): Status: Acute (6) Leukocytosis: Status: Acute (7) Normocytic anemia: Status: Acute (8) Weakness: Status: Acute Reason for Visit Reason for Visit: WELL BEING CHECK Brief History: Isamar Keyes is a 75 year old female with past medical history of COPD, diabetes, hyperlipidemia, hypertension presented to the hospital today for generalized weakness.? She states that her son does not take care of her at home and she needs help.? However when I asked her if she would like to go to a skil led nursing facility she stated no she would like to go back home to her son.? She was also had a penitentiary facility recently however she took her self off 2 days ago AGAINST MEDICAL ADVICE because she states she wanted to go home.? He states she has trouble at home to perform her ADLs.? ER physician also told me that apparently patient was found on the floor and that she may have a foreign from her chair.? She is incontinent of urine when he was found in her urine and feces.? Patient's RN noted that patient wants to go to a specific penitentiary facility at this time.? Patient has also ripped out her IV since being in the ER because she stated that it was too tight on her.? She denies chest pain, shortness of breath, abdominal pain, nausea, vomiting, constipation, diarrhea at this time.? Patient is a very poor historian. ED course: This 117/50 RR 18 , pulse 100 On arrival to ER, afebrile, saturating 96% on room air. Chest x-ray did not show acute abnormality.? Neck CT head no acute intracranial abnormality.? Does have some chronic findings. Hospital Course Hospital Course Patient was initially admitted for failure to thrive and acute on chronic hyponatremia however she was found to have E. coli bacteremia and depression. Hospitalization has been complicated by decreased physical capacity as well. She is a total assist with [employer] lift at this time. Patient completed 10 days of IV antibiotics for her E. coli bacteremia. She has remained medically stable and afebrile. Hyponatremia has resolved. A1c 7.2. Glimepiride has been stopped at this time. Gabapentin dose has also been adjusted to 100 3 times daily. Patient also developed shingles during hospital stay and completed a co urse of acyclovir for 5 days and a 10-day course of Valtrex. Extensive discussions were done by managing hospitalist with the family patient's daughter Hanane who is the DPOA. Due to patient's poor baseline quality of life secondary to dementia and the fact that she is bedbound and needs ambulation through her left. Patient was changed to hospice status. Family would like to pursue hospice care at this time. CODE STATUS DNR/DNI. Patient will be sent to halfway for hospice in stable condition. I did try to call family to update them and left voicemail. Unable to get a hold of anyone over the phone. However case manager have informed me that family will be coming in today to the hospital. I have adjusted several of patient's medications. Please see med rec. She is to follow-up with her primary care physician. Patient was seen today. She is still confused. She believes she is at her halfway. She also does not know what year it is. She mentioned that the president is George Khan. Does not complain of any pain, shortness of breath, any other symptom. She says she feels well. Patient is hard of hearing. Physical Exam Narrative: General: Alert oriented to self only,, chronically ill- appearing,appearing comfortable at this time, HEENT: Normocephalic, atraumatic, EOMI Cardio: RRR, normal S1-S2, no murmurs Respiratory: CTA B/L GI: Abdomen soft, nontender, bowel sounds + Shingles lesions have all crusted over at this time. Perineal area slightly erythematous. Zinc oxide cream and nystatin powder ordered. Extremities: Trace b/l LE edema Urinary Catheter Management: Darling: Cath Placed During This Visit: yes, but has since been removed by the nurse Reason for Continuing Indwelling Catheter: Decision to DC Catheter Urinary Catheter Date of Insertion: 10/10/21 Urinary Catheter Time of Insertion: 00:45 Date Urinary Catheter Removed: 10/11/21 Time Urinary Catheter Discontinued: 12:31 Discharge Data Studies Completed and Pending Completed Studies During Hospitalization Category Date Time Status CT head wo con* [id number] Urgent Cat Scan 10/09/21 19:32 Completed CXRP [XR chest 1V portable [id number]] Routine Exams 10/15/21 14:12 Completed XR chest 1V portable [id number] Urgent Exams 10/09/21 19:32 Completed Radiology Impressions Head CT 10/09/21 19:32 IMPRESSION: 1. There is diffuse cerebral atrophy. Ventricles are prominent out of proportion to the sulci, and a degree of overlying normal pressure hydrocephalus cannot be excluded. 2. There are senescent changes of the brain as described above. No evidence for large acute ischemic infarction or acute intracranial injury. Chest X-Ray 10/15/21 14:12 IMPRESSION: PICC line placement as above. Laboratory Results WBC 9.6 10^3/uL (4.0-10.0) 10/25/21 06:10 RBC 3.53 10^6/uL (4.1-5.3) L 10/25/21 06:10 Hgb 10.7 g/dL (11.5-15.3) L 10/25/21 06:10 Hct 32.7 % (37.0-47.0) L 10/25/21 06:10 MCV 92.6 fl (81-99) 10/25/21 06:10 MCH 30.3 pg (28.0-34.0) 10/25/21 06:10 MCHC 32.7 g/dL (30.0-36.0) 10/25/21 06:10 RDW 15.9 % (12.1-15.1) H 10/25/21 06:10 Plt Count 299 10^3/cmm (130-400) 10/25/21 06:10 MPV 8.9 fL (7.4-10.4) 10/25/21 06:10 Neut % (Auto) 47.6 % 10/25/21 06:10 Lymph % (Auto) 41.2 % 10/25/21 06:10 [place] % (Auto) 7.6 % 10/25/21 06:10 Eos % (Auto) 2.7 % 10/25/21 06:10 Baso % (Auto) 0.6 % 10/25/21 06:10 Neut # (Auto) 4.56 10^3/uL (1.8-7.7) 10/25/21 06:10 Lymph # (Auto) 4.0 10^3/uL (0.8-4.8) 10/25/21 06:10 [place] # (Auto) 0.7 10^3/uL (0.2-0.9) 10/25/21 06:10 Eos # (Auto) 0.3 10^3/uL (0.0-0.8) 10/25/21 06:10 Baso # (Auto) 0.1 10^3/uL (0.0-0.1) 10/25/21 06:10 Nucleated RBC % (auto) 0 % 10/25/21 06:10 Nucleated RBCs # 0.0 /100WBC 10/25/21 06:10 Sodium 130 mmol/L (136-145) L 10/25/21 06:10 Potassium 4.0 mmol/L (3.5-5.1) 10/25/21 06:10 Chloride 95 mmol/L (98-107) L 10/25/21 06:10 Carbon Dioxide 26 mmol/L (22-29) 10/25/21 06:10 Anion Gap 13.0 (5-19) 10/25/21 06:10 BUN 13 mg/dL (8-23) 10/25/21 06:10 Creatinine 0.5 mg/dL (0.5-0.9) 10/25/21 06:10 GFR Calculation Not Reportable 10/25/21 06:10 Glucose 119 mg/dL (65-115) H 10/25/21 06:10 POC Glucose 138 mg/dL (70-110) H 11/04/21 05:55 Estimat Average Glucose 160 10/12/21 06:10 Hemoglobin A1c 7.2 % (4.0-6.0) H 10/12/21 06:10 Serum Osmolality 274 mOsm/kg (278-305) L 10/09/21 20:35 Calculated Osmolality 271 mOsm/kg (285-295) L 10/25/21 06:10 Lactic Acid 1.1 mmol/L (0.5-2.2) 10/10/21 01:00 Calcium 8.5 mg/dL (8.5-10.5) 10/25/21 06:10 Iron 44 ug/dL (37-145) 10/11/21 04:20 TIBC 234 mcg/dl 10/11/21 04:20 % Saturation 18.8 % (20-50) L 10/11/21 04:20 Unsat Iron Binding 190 ug/dL (112-347) 10/11/21 04:20 Total Bilirubin 0.3 mg/dL (0.15-1.2) 10/25/21 06:10 AST 16 U/L (0-32) 10/25/21 06:10 ALT 10 U/L (0-33) 10/25/21 06:10 Alkaline Phosphatase 54 U/L (35-105) 10/25/21 06:10 Troponin T Baseline 15 ng/L (0-10) H 10/09/21 20:35 Troponin T 120 Minute 14.77 ng/L (0-10) H 10/09/21 22:35 Delta Troponin T -0.23 ABS# (0-10) L 10/09/21 22:35 Troponin T Hi Sens 6Hr 16.30 ng/L (0-10) H 10/10/21 01:00 Troponin T Hi Sens 6Hr Delta 1.30 ng/L (0-12) 10/10/21 01:00 NT-Pro-B Natriuret Pep 978 pg/mL (0-450) H 10/09/21 20:35 Total Protein 6.0 g/dL (6.6-8.7) L 10/25/21 06:10 Albumin 2.9 g/dL (3.5-5.2) L 10/25/21 06:10 Globulin 3.1 g/dL (1.3-4.6) 10/25/21 06:10 Triglycerides 69 mg/dL (0-150) 10/12/21 06:10 Cholesterol 86 mg/dL (0-200) 10/12/21 06:10 LDL Cholesterol, Calc 33 mg/dL (50-129) L 10/12/21 06:10 Total VLDL Cholesterol 14 mg/dL (0-30) 10/12/21 06:10 HDL Cholesterol 39 mg/dL (60-100) L 10/12/21 06:10 Cholesterol/HDL Ratio 2.21 mg/dL (0.0-4.40) 10/12/21 06:10 Procalcitonin 0.05 ng/mL (0-0.5) 10/11/21 04:20 TSH 1.81 uIU/mL (0.27-4.20) 10/10/21 01:00 Urine Color Yellow (Yellow) 10/10/21 00:45 Urine Appearance Cloudy (CLEAR) 10/10/21 00:45 Urine pH 5 (5-7) 10/10/21 00:45 Ur Specific [place] 1.020 (1.005-1.030) 10/10/21 00:45 Urine Protein 1+ (Negative) H 10/10/21 00:45 Urine Glucose (UA) 4+ (Normal) H 10/10/21 00:45 Urine Ketones 1+ (Negative) H 10/10/21 00:45 Urine Blood 3+ (Negative) H 10/10/21 00:45 Urine Nitrate Negative (Negative) 10/10/21 00:45 Urine Bilirubin Neg (Negative) 10/10/21 00:45 Urine Urobilinogen Neg mg/dL (Negative) 10/10/21 00:45 Ur Leukocyte Esterase 2+ (Negative) H 10/10/21 00:45 Urine RBC 10-15 /hpf (0-2) H 10/10/21 00:45 Urine WBC >100 /hpf (0-5) H 10/10/21 00:45 Ur Squamous Epith Cells 0-4 /hpf (0-5) H 10/10/21 00:45 Amorphous Sediment Not Reportable 10/10/21 00:45 Urine Bacteria 3+ /hpf (NONE) H 10/10/21 00:45 Urine Osmolality 559 mOsm/kg (50-1200) 10/10/21 00:45 Ur Random Sodium 71 mmol/L 10/10/21 00:45 Vancomycin Trough 9.1 ug/mL (10-15) L 10/12/21 22:56 Valproic Acid 100.6 ug/mL (50-100) H 10/27/21 17:15 Herpes Simplex Source Swab 10/26/21 14:48 HSV 1 DNA Not detected 10/26/21 14:48 HSV 2 DNA Not detected 10/26/21 14:48 Vitals Last Vital Signs Temp 98.3 F 11/04/21 04:00 Pulse 76 11/04/21 08:00 Resp 17 11/04/21 08:00 BP 143/75 11/04/21 08:00 Pulse Ox 96 11/04/21 08:00 O2 Del Method 11/04/21 08:00 Discharge Plan Discharge Patient Disposition: Hospice - Medical Facility Condition: Stable Prescriptions: New gabapentin 100 mg Capsule 100 mg PO TID 30 Days Qty: 90 0RF tizanidine 4 mg Tablet 2 mg PO TID 30 Days Qty: 45 0RF divalproex 500 mg Tablet,Delayed Release (Dr/Ec) 500 mg PO BID 30 Days Qty: 60 0RF risperidone 0.25 mg Tablet 0.25 mg PO BID 30 Days Qty: 60 0RF ferrous gluconate 324 mg (37.5 mg iron) Tablet 324 mg PO BIDWM 30 Days Qty: 30 0RF donepezil 5 mg Tablet 10 mg PO BEDTIME 30 Days Qty: 30 0RF nystatin [Nystop] 100,000 unit/gram Powder 1 applic topical BID 14 Days Qty: 100 0RF Continued atorvastatin 20 mg tablet 20 mg PO DAILY tamsulosin 0.4 mg capsule 0.4 mg PO DAILY metformin 1,000 mg tablet 1,000 mg PO BID nystatin [Nystop] 100,000 unit/gram powder 1 applic TOPICAL DAILY albuterol sulfate 90 mcg/actuation HFA aerosol inhaler 2 puff INHALATION DAILY PRN (Reason: Shortness Of Breath) aspirin 81 mg Tablet,Delayed Release (Dr/Ec) 81 mg PO DAILY Qty: 30 0RF docusate sodium 100 mg capsule 100 mg PO BID Qty: 30 0RF Discontinued risperidone 0.25 mg tablet 0.25 mg PO BID glimepiride 4 mg tablet 4 mg PO BID gabapentin 300 mg capsule 300 mg PO TID lisinopril 5 mg tablet 5 mg PO DAILY furosemide 20 mg tablet 20 mg PO DAILY Januvia 50 mg tablet 50 mg PO DAILY Discharge Orders: Discharge Order (Routine); Ordered 11/04/21 Ordered By: Remedios Sauceda Other Ambulatory Orders: DME: Miscellaneous (Order) Location: None Selected Ordered By: Jose Carlos Silva Referrals: [facility] [Outside] Farida Ford FNP [Primary Care Provider] - 4-7 days Discharge Diet: Diabetic Discharge Activity: Increase activity as tolerated and Wheelchair as instructed Patient Instructions: Opioid Safety Activity Restrictions/Additional Instructions: Continue to apply zinc oxide cream on perineal areas Nystatin powder for skin folds Patient is incontinent of urine. I would highly recommend to use depends. Patient to follow-up with primary care doctor for further medication refills. Discharge Attestations Time Spent in Discharge Care*: greater than 30 min Quality Metrics Clinical Quality Measures [ No reported AMI, CVA or VTE this stay] Coding Level of Care Code Acute [facility] note Diagnoses Thigh shingles B02.9 UTI (urinary tract infection) N39.0 COPD (chronic obstructive pulmonary disease) J44.9 Hyponatremia E87.1 Deficit in activities of daily living (ADL) Z78.9 Leukocytosis D72.829 Normocytic anemia D64.9 Weakness R53.1
[2021-11-04 09:53] VITALS: BP 143/75; PULSE 76; RESP 17; O2SAT 96
[2021-11-04 10:49] LABS: SARS Covid-2 Antigen Negative (Negative)
[2021-11-04 10:56] LABS: Glucose Point of Care 218 mg/dL (70-110)
[2021-11-04 12:00] VITALS: BP 138/58; PULSE 105; RESP 17; TEMP 37.1; O2SAT 94
[2021-11-04] MEDS: insulin lispro 100 unit/1 mL SUBCUT (13:10)
== END 2021-11-04 13:20 | disposition hospice, inpatient (51) | DRG 690 ==
LOC: ER 23:09 → MEDSURG 10-10 02:55
PROVIDERS: Internal Medicine; Student in an Organized Health Care Education/Training Program; Admitting Provider Internal Medicine; Emergency Provider Emergency Medicine; PCP Nurse Practitioner Family; Visit Provider Internal Medicine
DX: N39.0 Urinary tract infection, site not specified (principal); E87.1 Hypo-osmolality and hyponatremia; J44.9 Chronic obstructive pulmonary disease, unspecified; E11.9 Type 2 diabetes mellitus without complications; E78.5 Hyperlipidemia, unspecified; I10 Essential (primary) hypertension; Z96.659 Presence of unspecified artificial knee joint; E86.0 Dehydration; D64.9 Anemia, unspecified; B96.20 Unspecified Escherichia coli [E. coli] as the cause of diseases classified elsewhere; B95.5 Unspecified streptococcus as the cause of diseases classified elsewhere; B02.9 Zoster without complications; F03.90 Unspecified dementia, unspecified severity, without behavioral disturbance, psychotic disturbance, mood disturbance, and anxiety; Z79.51 Long term (current) use of inhaled steroids; Z79.82 Long term (current) use of aspirin; Z79.84 Long term (current) use of oral hypoglycemic drugs; Z74.01 Bed confinement status; Z66 Do not resuscitate
CPT/HCPCS: 36415; 36416; 36569; 51702; 70450; 71045; 80053; 80061; 80164; 80202; 81001; 82962; 83036; 83540; 83550; 83605; 83880; 83930; 83935; 84145; 84300; 84443; 84484; 85025; 87040; 87077; 87086; 87186; 87205; 87426; 87530; 87641; 92523; 92526; 92610; 96360; 96372; 97110; 97162; 97165; 97530; 97535; 99285; G0378; J0696; J1644; J1815; J3370; J7030; J7050; J8499